=== PATIENT | male | born 1945 | race Hispanic/Latino ===

== ENCOUNTER 2018-02-23 13:37 | Inpatient (IN) | payer MEDICARE, OTHER ==
--- NOTE | 2018-02-23 14:33 | ED PDOC ---
Arrival/HPI - General Time Seen by Provider: 02/23/18 13:58 Historian: Patient, Family - History of Present Illness Narrative History of Present Illness (Text): 02/23/18 14:31 A 72 year old male, whose past medical history includes atrial fibrillation, TIA , ASCVD, ESRD, gout and neck surgery (reason unknown, no records in our system) , presents to the emergency department for evaluation. Daughter reports patient has had more difficulty caring for himself. Patient has trouble ambulating, feeding and bathing without assistance. [place] physicians there. Daughter recently contacted prior PMD Dr. Krishna Diez, who instructed them to come to the [place] emergency room for Dr. Matias to treat patient. Daughter also notes left testicular pain and swelling. Patient currently denies any physical complaints. Patient notes a 40-45 weight loss over the past year, but denies any fever, chills, nausea, vomiting, abdominal pain, chest pain, shortness of breath or any other complaints. Past Medical History - Provider Review Nursing Documentation Reviewed: Yes - Infectious Disease Hx of Infectious Diseases: None - Tetanus Immunization Tetanus Immunization: Unknown - Cardiac Hx Cardiac Disorders: Yes - Pulmonary Hx Respiratory Disorders: No - Neurological Hx Transient Ischemic Attacks (TIA): Yes (x2 10/2015 confusion worsened as per daughter) Other/Comment: confusion/memory loss for 2 or 3 yrs as per daughter worsened the last month - HEENT Hx HEENT Disorder: No - Renal Hx Renal Disorder: No - Endocrine/Metabolic Hx Endocrine Disorders: No - Hematological/Oncological Hx Cancer: Yes (prostate 10 yrs ago tx with radiation) - Integumentary Hx Dermatological Disorder: Yes (RIGHT ARM CELLULITIS 11-16-16) Other/Comment: HAS A SMALL INCISION TO RIGHT UPPER BACK ,PURPLISH HUE IN COLOR, FLUSHED SKIN. HAD BEEN INCISED AND DRAINED, sometimes drains. HAS H/O OF BACK SX 2009., recently admitted for cellulitis right arm 11/16/16presently healing, scratch auguste to rle, multiple auguste on arms from dogs scratchiing pt, pt spilled coffee on his right foot 2 wounds healing, multiple red areas of skin to left foot and bunyon, right foot +1 edema redness and redness to bunyon, buldging vein to lle - Musculoskeletal/Rheumatological Hx Falls: No - Gastrointestinal Hx Gastrointestinal Disorders: No - Psychiatric Hx Depression: Yes Hx Emotional Abuse: No Hx Physical Abuse: No Hx Substance Use: No - Surgical History Hx Cardiac Catheterization: Yes Other/Comment: back sx 2009, spinal cord compression from weight lifting - Anesthesia Hx Anesthesia Reactions: Yes Hx Malignant Hyperthermia: No - Suicidal Assessment Feels Threatened In Home Enviroment: No Family/Social History - Physician Review Nursing Documentation Reviewed: Yes Family/Social History: No Known Family HX Smoking Status: Never Smoked Hx Alcohol Use: No Hx Substance Use: No Allergies/Home Meds Allergies/Adverse Reactions: Allergies No Known Allergies Allergy (Verified 11/26/16 22:30) Home Medications: Home Meds Medication Instructions Recorded Confirmed Albuterol/Ipratropium [Duoneb 3 3 ml IH QID 02/23/18 02/23/18 MG/3 Ml-0.5 MG/3 Ml 3 Ml] Apixaban [Eliquis] 5 mg PO BID 02/23/18 02/23/18 Atorvastatin [Lipitor] 40 mg PO HS 02/23/18 02/23/18 Escitalopram [Lexapro] 10 mg PO DAILY 02/23/18 02/23/18 Gabapentin [Neurontin] 300 mg PO BID 02/23/18 02/23/18 Omeprazole 40 mg PO DAILY 02/23/18 02/23/18 diltiaZEM [Cardizem] 240 mg PO DAILY 02/23/18 02/23/18 Review of Systems - Physician Review All systems were reviewed & negative as marked: Yes - Review of Systems Constitutional: Weight Change, Other (Difficulty caring for himslef). absent: Fevers, Night Sweats Respiratory: absent: SOB Cardiovascular: absent: Chest Pain Gastrointestinal: absent: Abdominal Pain, Nausea, Vomiting Genitourinary Male: Other (left testicular pain and swelling) Physical Exam Vital Signs Reviewed: Yes Vital Signs Temp Pulse Resp BP Pulse Ox 02/23/18 18:43 85 16 91/49 L 91 L 02/23/18 14:39 98.3 F 92 H 20 90/56 L 100 Temperature: Afebrile Blood Pressure: Hypotensive Pulse: Tachycardic Respiratory Rate: Normal Appearance: Positive for: Well-Appearing, Non-Toxic, Comfortable Pain Distress: None Mental Status: Positive for: Alert and Oriented X 3 - Systems Exam Head: Present: Atraumatic, Normocephalic Pupils: Present: PERRL Extroacular Muscles: Present: EOMI Conjunctiva: Present: Normal Mouth: Present: Moist Mucous Membranes Neck: Present: Normal Range of Motion. No: JVD Respiratory/Chest: Present: Clear to Auscultation, Good Air Exchange. No: Respiratory Distress, Accessory Muscle Use Cardiovascular: Present: Normal S1, S2, Irregular Rhythm. No: Murmurs Abdomen: Present: Normal Bowel Sounds. No: Tenderness, Distention, Peritoneal Signs Genitourinary Male: Present: Testicle Tenderness (left), Erythema (to left testicle), Testicle Swelling (left) Back: Present: Normal Inspection Upper Extremity: Present: Normal Inspection. No: Cyanosis, Edema Lower Extremity: Present: Normal Inspection. No: Edema Neurological: Present: GCS=15, CN II-XII Intact, Speech Normal Skin: Present: Warm, Dry, Normal Color. No: Rashes Psychiatric: Present: Alert, Oriented x 3, Normal Insight, Normal Concentration Medical Decision Making ED Course and Treatment: 02/23/18 14:31 Impression: A 72 year old male brought in by family for evaluation Plan: -- Head CT -- Testes ultrasound -- Chest xray -- EKG -- Labs -- Blood and Urine culture -- Urinalysis -- Reassess and disposition Progress Notes: EKG shows atrial fibrillation at 102 BPM. Interpreted by me. Case discussed with Dr. Matias, who recommends septic workup, CT head and ultrasound of testicle. - Lab Interpretations Microbiology Results: Microbiology Results 02/23/18 15:30 Blood-Venous Blood Culture - Preliminary NO GROWTH AFTER 48 HOURS 02/23/18 15:20 Blood-Venous Blood Culture - Preliminary NO GROWTH AFTER 48 HOURS Lab Results: 02/23/18 15:20 02/23/18 15:20 Lab Results 02/23/18 15:20: Sodium 143, Chloride 101, Potassium 4.1, Carbon Dioxide 25, Anion Gap 21 H, BUN 30 H, Creatinine 1.7 H, Est GFR ( Amer) 48, Est GFR ( Non-Af Amer) 40, Random Glucose 110, Calcium 9.3, Total Bilirubin 0.9, AST 36, ALT 36, Alkaline Phosphatase 151 H, Lactate Dehydrogenase 408, Total Creatine Kinase 32 L, Troponin I < 0.01 D, Total Protein 7.7, Albumin 3.4, Globulin 4.3 , Albumin/Globulin Ratio 0.8 L 02/23/18 15:20: pO2 56 H, VBG pH 7.37, VBG pCO2 49.0, VBG HCO3 28.3 H, VBG Total CO2 29.8 H, VBG O2 Sat (Calc) 91.8 H, VBG Base Excess 2.2 H, VBG Potassium 5.0, Sodium 135.0, Chloride 102.0, Glucose 112 H, Lactate 1.9, FiO2 21.0, Venous Blood Potassium 5.0 02/23/18 15:20: PT 24.0 H, INR 2.07 H 02/23/18 15:20: WBC 10.1, RBC 4.00, Hgb 10.5 L, Hct 33.4 L, MCV 83.5, MCH 26.3, MCHC 31.4, RDW 16.9 H, Plt Count 352, MPV 8.8, Gran % 65.1, Lymph % (Auto) 22.8 , Moody % (Auto) 9.8 H, Eos % (Auto) 2.1, Baso % (Auto) 0.2, Gran # 6.58 H, Lymph # (Auto) 2.3, Moody # (Auto) 1.0 H, Eos # (Auto) 0.2, Baso # (Auto) 0.02 - RAD Interpretation Radiology Orders: 02/23/18 14:52 HEAD W/O CONTRAST [CT] Stat CHEST PORTABLE [RAD] Stat TESTES DUPLEX COMPLETE [US] Stat - Medication Orders Current Medication Orders: Apixaban (Eliquis) 5 mg PO BID [facility] PRN Reason: Protocol Last Admin: 02/24/18 10:29 Dose: 5 mg Atorvastatin Calcium (Lipitor) 40 mg PO HS [facility] Last Admin: 02/25/18 21:04 Dose: 40 mg Diltiazem HCl (Cardizem Cd) 240 mg PO DAILY [facility] Last Admin: 02/25/18 10:23 Dose: 240 mg Escitalopram Oxalate (Lexapro) 10 mg PO DAILY [facility] Last Admin: 02/25/18 10:23 Dose: 10 mg Famotidine (Pepcid) 40 mg PO HS [facility] Last Admin: 02/25/18 21:04 Dose: 40 mg Gabapentin (Neurontin) 300 mg PO BID [facility] PRN Reason: Protocol Last Admin: 02/25/18 17:49 Dose: 300 mg Behavioural Document 02/25/18 17:49 KEVIN (Rec: 02/25/18 17:49 [place] [facility] [id number] Maintenance Maintenance Dose Yes Heparin Sodium (Porcine) (Heparin) 5,000 units SC Q8 ANASTASIA PRN Reason: Protocol Last Admin: 02/26/18 05:13 Dose: Not Given Non-Admin Reason: Patient Refused Piperacillin Sod/Tazobactam Sod (Zosyn 2.25 Gm In 0.9% 100 Ml) 2.25 gm in 100 mls @ 200 mls/hr IVPB Q6 ANASTASIA PRN Reason: Protocol Stop: 03/03/18 00:01 Last Admin: 02/25/18 17:49 Dose: 200 mls/hr eMAR Start Stop Document 02/25/18 17:49 KEVIN (Rec: 02/25/18 17:49 [place] [facility] [id number] Intravenous Solution Start Date 02/25/18 Start Time 17:49 Sodium Chloride (Sodium Chloride 0.9%) 1,000 mls @ 100 mls/hr IV .Q10H [facility] Last Admin: 02/25/18 21:05 Dose: Oxycodone/Acetaminophen (Percocet 5/325 Mg Tab) 1 tab PO Q4H PRN PRN Reason: Pain, moderate (4-7) Stop: 02/27/18 08:10 Polyethylene Glycol/Electrolytes (Golytely) 4,000 ml PO ONCE ONE Stop: 02/26/18 14:01 Discontinued Medications Levofloxacin/Dextrose (Levaquin 750mg) 750 mg in 150 mls @ 100 mls/hr IVPB STAT STA PRN Reason: Protocol Stop: 02/23/18 18:40 Last Admin: 02/23/18 18:58 Dose: 100 mls/hr eMAR Start Stop Document 02/23/18 18:58 MS (Rec: 02/23/18 18:58 [id number]) Intravenous Solution Start Date 02/23/18 Start Time 18:58 Doxycycline Hyclate 100 mg/ (Sodium Chloride) 100 mls @ 100 mls/hr IVPB ONCE ONE PRN Reason: Protocol Stop: 02/23/18 18:13 Last Admin: 02/23/18 18:07 Dose: 100 mls/hr eMAR Start Stop Document 02/23/18 18:07 MS (Rec: 02/23/18 18:07 MS [id number]) Intravenous Solution Start Date 02/23/18 Start Time 18:07 End Date 02/23/18 End time 19:07 Total Infusion Time 60 Sodium Chloride (Sodium Chloride 0.9%) 1,000 mls @ 60 mls/hr IV .[id number] ANASTASIA Last Admin: 02/24/18 05:56 Dose: 60 mls/hr eMAR Start Stop Document 02/24/18 05:56 MJ (Rec: 02/24/18 05:56 MJ [id number]) Intravenous Solution Start Date 02/24/18 Start Time 21:00 Piperacillin Sod/Tazobactam Sod (Zosyn 3.375 In Ns 100ml) 100 mls @ 200 mls/hr IVPB Q6 ANASTASIA PRN Reason: Protocol Stop: 03/03/18 00:01 Last Admin: 02/24/18 05:49 Dose: 200 mls/hr eMAR Start Stop Document 02/24/18 05:49 MJ (Rec: 02/24/18 05:49 MJ [id number]) Intravenous Solution Start Date 02/24/18 Start Time 05:49 End Date 02/24/18 End time 06:19 Total Infusion Time 30 Sodium Chloride (Sodium Chloride 0.9%) 250 mls @ 999 mls/hr IV .Q16M STA Stop: 02/24/18 13:49 Last Admin: 02/24/18 13:43 Dose: 999 mls/hr eMAR Start Stop Document 02/24/18 13:43 KEVIN (Rec: 02/24/18 13:43 KEVIN [id number]) Intravenous Solution Start Date 02/24/18 Start Time 08:00 Iron Sucrose 200 mg/ Sodium (Chloride) 110 mls @ 110 mls/hr IVPB ONCE ONE Stop: 02/25/18 09:59 Last Admin: 02/25/18 10:24 Dose: 110 mls/hr eMAR Start Stop Document 02/25/18 10:24 KEVIN (Rec: 02/25/18 10:24 KEVIN [id number]) Intravenous Solution Start Date 02/25/18 Start Time 10:24 Morphine Sulfate (Morphine) 4 mg IVP STAT STA Stop: 02/23/18 17:11 Last Admin: 02/23/18 18:07 Dose: 4 mg MAR Pain Assessment Document 02/23/18 18:07 MS (Rec: 02/23/18 18:08 MS [id number]) Pain Reassessment Is this a pain reassessment? No Sleep Is patient sleeping during reassessment? No Presence of Pain Presence of Pain Yes Pain Scale Used Pain Scale Used Numeric Location Pain Location Body Site Generalized Description Description Constant Intensity of Pain at present 8 Pain Behavior Moaning Irritability IVP Administration Document 02/23/18 18:07 MS (Rec: 02/23/18 18:08 [id number]) Charges for Administration # of IVP Administrations 1 Re-Assess: MAR Pain Assessment Document 02/23/18 19:07 MJ (Rec: 02/24/18 08:20 MJ [id number]) Pain Reassessment Is this a pain reassessment? Yes Sleep Is patient sleeping during reassessment? Yes Ondansetron HCl (Zofran Inj) 4 mg IVP STAT STA Stop: 02/23/18 17:11 Last Admin: 02/23/18 18:07 Dose: 4 mg IVP Administration Document 02/23/18 18:07 MS (Rec: 02/23/18 18:07 MS [id number]) Charges for Administration # of IVP Administrations 1 - Scribe Statement The provider has reviewed the documentation as recorded by the Scribe Odilia Tipton Provider Scribe Attestation: All medical record entries made by the Scribe were at my direction and personally dictated by me. I have reviewed the chart and agree that the record accurately reflects my personal performance of the history, physical exam, medical decision making, and the department course for this patient. I have also personally directed, reviewed, and agree with the discharge instructions and disposition. Disposition/Present on Arrival - Present on Arrival Any Indicators Present on Arrival: No History of DVT/PE: No History of Uncontrolled Diabetes: No Urinary Catheter: No History of Decub. Ulcer: No History Surgical Site Infection Following: None - Disposition Have Diagnosis and Disposition been Completed?: Yes Diagnosis: Epididymitis, Cellulitis of scrotum, Generalized weakness, Debilitated Disposition: HOSPITALIZED Disposition Time: 16:00 Patient Plan: Admission Condition: FAIR
[2018-02-23 15:24] LABS: BASO # 0.02 K/mm3 (0.0-2.0); BASO % 0.2 % (0.0-3.0); EOS # 0.2 (0.0-0.7); EOS % 2.1 % (1.5-5.0); GRAN # 6.58 (1.4-6.5); GRAN % 65.1 % (50.0-68.0); HEMOGLOBIN 10.5 g/dL (14.0-18.0); LYMPH # 2.3 (1.2-3.4); LYMPH % 22.8 % (22.0-35.0); MEAN CELL VOLUME 83.5 fl (80.0-105.0); MEAN CORPUSCULAR HEMOGLOBIN 26.3 pg (25.0-35.0); MEAN CORPUSCULAR HGB CONC 31.4 g/dl (31.0-37.0); MEAN PLATELET VOLUME 8.8 fl (7.0-11.0); MONO % 9.8 % (1.0-6.0); RED CELL DISTRIBUTION WIDTH 16.9 % (11.5-14.5); WHITE BLOOD COUNT 10.1 10^3/ul (4.5-11.0)
[2018-02-23 15:28] LABS: VENOUS BLOOD GAS BASE EXCESS 2.2 mmol/L (0.0-2.0); VENOUS BLOOD GAS PO2 56 mm/Hg (30-55); VENOUS BLOOD PH 7.37 (7.32-7.43)
[2018-02-23 15:36] LABS: INR 2.07 (0.93-1.08)
[2018-02-23 15:49] LABS: ALB/GLOB RATIO 0.8 (1.1-1.8); ALBUMIN 3.4 g/dL (3.0-4.8); ALT/SGPT 36 U/L (7-56); AST/SGOT 36 U/L (17-59); BLOOD UREA NITROGEN 30 mg/dL (7-21); CALCIUM 9.3 mg/dL (8.4-10.5); GFR AFRICAN-AMERICAN 48; GFR NON-AFRICAN AMERICAN 40
[2018-02-23 16:00] LABS: TROPONIN I < 0.01 ng/mL
--- NOTE | 2018-02-23 16:32 | US ---
HISTORY: Orchitis vs Epididimitis TECHNIQUE: Realtime sonography through the scrotum with color and doppler flow. COMPARISON: None Available. FINDINGS: RIGHT TESTICLE: Measures 4.1 7 x 1.58 x 2.78 cm. Normal echotexture and flow. RIGHT EPIDIDYMIS: Epididymal head measures 1.13 x 0.63 x 1.09 cm. Grossly unremarkable appearance with normal flow. LEFT TESTICLE: Measures 4.1 8 x 1.95 x 2.8 a cm. Normal echotexture and flow. LEFT EPIDIDYMIS: The left epididymis is grossly enlarged and heterogeneous consistent with epididymitis. There is also markedly increased blood flow to the epididymis. HYDROCELE: Bilateral VARICOCELE: None. OTHER FINDINGS: None. IMPRESSION: Enlarged and heterogeneous left epididymis with increased blood flow. Findings consistent with epididymitis. Normal blood flow to the testicles
[2018-02-23] MEDS ORDERED: Morphine 4 mg/ml ISec IVP STA (17:10)
[2018-02-23] MEDS ORDERED: levoFLOXacin 750 mg in D5W 750 MG/150 ML BAG IVPB STA (17:11)
--- NOTE | 2018-02-23 18:53 | CT ---
PROCEDURE: CT HEAD WITHOUT CONTRAST. HISTORY: Generalized Weakness COMPARISON: None available. TECHNIQUE: Axial computed tomography images were obtained through the head/brain without intravenous contrast. Radiation dose: Total exam DLP = 1240.23 mGy-cm. This CT exam was performed using one or more of the following dose reduction techniques: Automated exposure control, adjustment of the mA and/or kV according to patient size, and/or use of iterative reconstruction technique. FINDINGS: HEMORRHAGE: No acute parenchymal, subarachnoid or extra-axial hemorrhage. BRAIN: Moderate to significant diffuse/confluent chronic periventricular white matter ischemic changes are again seen extending peripherally into the deep and subcortical white matter both cerebral hemispheres. . Partially cystic encephalomalacia left posterior inferior temporal lobe again noted. Clinical correlation recommended. . 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 Multiple chronic appearing bilateral basal nuclei lacunar type infarcts also present. Moderate to significant generalized volume loss. VENTRICLES: No obstructive hydrocephalus. CALVARIUM: There are no acute calvarial fractures. PARANASAL SINUSES: Frontal sinuses remain underpneumatized/ hypoplastic. Remaining visualized paranasal sinuses relatively well-developed. Minimal mucosal thickening both maxillary antra. There is also minor mucosal thickening seen in the sphenoid sinus left greater than right MASTOID AIR CELLS: Unremarkable as visualized. No inflammatory changes. OTHER FINDINGS: None. IMPRESSION: Moderate to significant diffuse/confluent chronic periventricular white matter ischemic changes are again seen extending peripherally into the deep and subcortical white matter both cerebral hemispheres. . Partially cystic encephalomalacia left posterior inferior temporal lobe again noted. Clinical correlation recommended. . 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 Multiple chronic appearing bilateral basal nuclei lacunar type infarcts also present. Note that the possibility of a small hyperacute infarct cannot be excluded. Moderate to significant generalized volume loss
[2018-02-23] MEDS ORDERED: Sodium Chloride 0.9% 1,000 ML IV SCH (20:30)
--- NOTE | 2018-02-23 22:29 | CARD ---
APPROVED REPORT EKG Measurement Heart [id number] <Conclusion> Atrial fibrillation with rapid ventricular response Abnormal ECG
[2018-02-23] MEDS: Piperacillin/Tazobact 3.375 gm 100 ML IVPB SCH (23:35)
[2018-02-24 01:15] VITALS: BMI 27.3
[2018-02-24] MEDS: Piperacillin/Tazobact 3.375 gm 100 ML IVPB SCH (05:49)
--- NOTE | 2018-02-24 07:23 | CP.PCM.HP ---
<Crystal Medina - Last Filed: 02/24/18 13:22> History of Present Illness - History of Present Illness History of Present Illness: H&P for Anne Valentino PGY2 This is a 72yo male with past medical history of gout, CKD stage IIIa, A.fib ( on Eliquis), CVA, prostate ca s/p radiation who was brought in by daughter for difficulty ambulating for a few months as well as testicular pain x 3 days. Patient is A&O to person and sometimes place, but not time. Daughter was not at bedside upon interview. History was obtained via patient who has some dementia and records. Patient has been having problems with his ADLs for the past couple of months. He is usually able to walk w/ walker, bathe and feed himself, but is now unable to do so. Patient reports having weakness in his L leg. He also complains of testicular pain and swelling for a few days. He denies having any discharge, sexual contacts, dysuria, hematuria, fever/chills, chest pain, shortness of breath, dark color or blood in stool, nausea/vomiting or diarrhea. Patient now lives in [place] with daughter for one year. According to the ED record, patient has lost ~40lbs in the past year. Past medical history: gout, CKD stage IIIa, A.fib (on Eliquis), CVA, prostate ca s/p radiation Past surgical history: back surgery Home meds: As per MAR Allergies: NKDA Social history: Denies EtOH, drug or tobacco use. Lives with daughter Present on Admission - Present on Admission Any Indicators Present on Admission: No Review of Systems - Review of Systems All systems: reviewed and no additional remarkable complaints except Review of Systems: 12 point ROS reviewed as per HPI and are otherwise negative. Past Patient History - Infectious Disease Hx of Infectious Diseases: None - Tetanus Immunizations Tetanus Immunization: Unknown - Past Social History Smoking Status: Never Smoked Alcohol: None Drugs: Denies Home Situation {Lives}: With Family - CARDIAC Hx Cardiac Disorders: Yes - PULMONARY Hx Respiratory Disorders: No - NEUROLOGICAL Hx Transient Ischemic Attacks (TIA): Yes (x2 10/2015 confusion worsened as per daughter) Other/Comment: confusion/memory loss for 2 or 3 yrs as per daughter worsened the last month - HEENT Hx HEENT Problems: No - RENAL Hx Chronic Kidney Disease: No - ENDOCRINE/METABOLIC Hx Endocrine Disorders: No - HEMATOLOGICAL/ONCOLOGICAL Hx Cancer: Yes (prostate 10 yrs ago tx with radiation) - INTEGUMENTARY Hx Dermatological Problems: Yes (RIGHT ARM CELLULITIS 11-16-16) Other/Comment: HAS A SMALL INCISION TO RIGHT UPPER BACK ,PURPLISH HUE IN COLOR, FLUSHED SKIN. HAD BEEN INCISED AND DRAINED, sometimes drains. HAS H/O OF BACK SX 2008., recently admitted for cellulitis right arm 11/16/16presently healing, scratch auguste to rle, multiple auguste on arms from dogs scratchiing pt, pt spilled coffee on his right foot 2 wounds healing, multiple red areas of skin to left foot and bunyon, right foot +1 edema redness and redness to bunyon, buldging vein to lle - MUSCULOSKELETAL/RHEUMATOLOGICAL Hx Falls: No - GASTROINTESTINAL Hx Gastrointestinal Disorders: No - GENITOURINARY/GYNECOLOGICAL Hx Genitourinary Disorders: No - PSYCHIATRIC Hx Depression: Yes Hx Emotional Abuse: No Hx Physical Abuse: No Hx Substance Use: No - SURGICAL HISTORY Hx Cardiac Catheterization: Yes Other/Comment: back sx 2008, spinal cord compression from weight lifting - ANESTHESIA Hx Anesthesia Reactions: Yes Hx Malignant Hyperthermia: No Meds Allergies/Adverse Reactions: Allergies Allergy/AdvReac Type Severity Reaction Status Date / Time No Known Allergies Allergy Verified 11/26/16 22:30 Physical Exam - Constitutional Appears: No Acute Distress - Head Exam Head Exam: ATRAUMATIC, NORMAL INSPECTION, NORMOCEPHALIC - Eye Exam Eye Exam: Normal appearance, PERRL Pupil Exam: NORMAL ACCOMODATION, PERRL - ENT Exam ENT Exam: Mucous Membranes Dry Additional comments: L sided facial droop - Respiratory Exam Respiratory Exam: Clear to Auscultation Bilateral, NORMAL BREATHING PATTERN. absent: Rales, Rhonchi, Wheezes - Cardiovascular Exam Cardiovascular Exam: Irregular Rhythm, +S1, +S2. absent: Gallop, Rubs, Systolic Murmur - GI/Abdominal Exam GI & Abdominal Exam: Normal Bowel Sounds, Soft. absent: Rebound, Rigid, Tenderness - Exam Exam: Scrotal Swelling (R), Testicular Tenderness (R) - Extremities Exam Extremities exam: Positive for: normal inspection. Negative for: calf tenderness, pedal edema - Neurological Exam Neurological exam: Alert - Expanded Neurological Exam Expanded Patient oriented to: person, place Speech: Fluid Speech Cranial nerves: EOM's Intact: Normal, Facial Palsey w/Forehead Movement: Abnormal Left, Facial Palsey w/o Forehead Movement: Abnormal Left, Facial Sensation: Normal Neuro motor strength exam: Left Upper Extremity: 4, Right Upper Extremity: 5, Left Lower Extremity: 5, Right Lower Extremity: 2/1 Coma Scale Eye Opening: SPONTANEOUS Coma Scale Motor Response: OBEYS COMMANDS Coma Scale Verbal: Confused Coma Scale Total: 14 - Psychiatric Exam Psychiatric exam: Normal Affect, Normal Mood - Skin Skin Exam: Dry, Warm Results - Vital Signs Recent Vital Signs: Last Vital Signs Temp 98.5 F 02/23/18 22:49 Pulse 77 02/23/18 22:49 Resp 20 02/23/18 22:49 BP 91/58 L 02/23/18 22:49 Pulse Ox 93 L 02/23/18 22:49 - Labs Result Diagrams: 02/23/18 15:20 02/23/18 15:20 Assessment & Plan - Assessment and Plan (Free Text) Assessment: This is a 72yo male with past medical history of gout, CKD stage IIIa, A.fib ( on Eliquis), CVA, prostate ca s/p radiation who is admitted for L leg weakness, R epidydimitis and anemia with weight loss. Plan: 1. L Leg weakness - Hx of CVA in L parietal and R watershed zone - On exam- pt has L sided facial droop, L leg very weak - Head CT showed: Moderate to significant diffuse chronic periventricular white matter ischemic changes extending peripherally into the deep and subcortical white matter both cerebral hemispheres. Partially cystic encephalomalacia left posterior inferior temporal lobe again noted. 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 Multiple chronic appearing bilateral basal nuclei lacunar type infarcts. Moderate to significant generalized volume loss - Neuro consulted - Pt on Lipitor - aspiration precaution - fall precaution - PT/OT 2. R Epidydimitis - Testicular US showed R epidydimitis - Afebrile, no leukocytosis - Zosyn - ID consulted- recs appreciated - U/A pending- pt incontinent- will need to straight cath - urine culture and blood culture pending 3. Anemia - With weight loss and hx of prostate cancer - Hgb 10.5, last Hgb 15 in 11/2016 - Heme consulted-recs appreciated - PSA 1.0 - CEA and Ca 19-9 normal - Iron studies pending - Spep and immunofixation pending - GI consulted- recommend to obtain CT abdomen/pelvis, hold Eliquis and scope on Friday 4. Hypotension - s/p IV fluid bolus - Will continue IV hydration - Maintain MAP>65 5. CKD stage IIIa - Avoid nephrotoxic agents - Continue IV hydration - Will continue to monitor electrolytes and kidney function 6. Hx of A.fib - EKG showed A.fib @102 - Continue Cardizem - Eliquis on hold for anemia and EGD/Colonoscopy 7. Hx of Depression - Continue Lexapro 8. Chronic back pain - Gabapentin - pain control GI ppx: Pepcid DVT ppx: SCDs. Eliquis on hold for anemia and for procedure. Dispo: Physical therapy recommended [facility]. Case seen, discussed and reviewed with Dr. Matias. Anne Medina PGY2 - Date & Time Date: 02/24/18 Time: 08:00 <Alvin Matias S - Last Filed: 02/24/18 20:16> Results - Vital Signs Recent Vital Signs: Last Vital Signs Temp 99.3 F 02/24/18 14:00 Pulse 86 02/24/18 14:00 Resp 20 02/24/18 14:00 BP 104/68 02/24/18 14:00 Pulse Ox 93 L 02/24/18 14:00 - Labs Result Diagrams: 02/23/18 15:20 02/23/18 15:20 Labs: Laboratory Results - last 24 hr 02/24/18 02/24/18 02/24/18 06:45 06:45 06:45 Iron 28 L TIBC 160 L % Saturation 17 L Ferritin 1670.0 Lactate Dehydrogenase 323 L Carcinoembryonic Ag 2.6 CA 19-9 Antigen 14.8 Prostate Specific Ag 1.0 Vitamin B12 679 Folate 9.6 Urine Color Urine Appearance Urine pH Ur Specific [place] Urine Protein Urine Glucose (UA) Urine Ketones Urine Blood Urine Nitrate Urine Bilirubin Urine Urobilinogen Ur Leukocyte Esterase Urine RBC Urine WBC Ur Epithelial Cells Amorphous Sediment Urine Bacteria Coarse Granular Casts Urine Other 02/24/18 18:26 Iron TIBC % Saturation Ferritin Lactate Dehydrogenase Carcinoembryonic Ag CA 19-9 Antigen Prostate Specific Ag Vitamin B12 Folate Urine Color Yellow Urine Appearance Clear Urine pH 5.5 Ur Specific [place] 1.020 Urine Protein 30 H Urine Glucose (UA) Negative Urine Ketones Negative Urine Blood Small H Urine Nitrate Positive H Urine Bilirubin Negative Urine Urobilinogen 1.0 H Ur Leukocyte Esterase Moderate H Urine RBC 10 - 15 Urine WBC 25 - 30 Ur Epithelial Cells 0 - 2 Amorphous Sediment Small Urine Bacteria Many Coarse Granular Casts Trace H Urine Other Uyeast Assessment & Plan - Assessment and Plan (Free Text) Plan: Pt seen and examined. Agree with the note of the medical doctor md/medical director. Meds and labs reviewed. I am concerned about a stroke that may have caused his L leg weakness and it correlates with the CT findings. He did not have this weakness previously when he was admitted last year. I will get Urology to see the pt. ID will be consulted as well.
[2018-02-24 07:37] LABS: IRON 28 ug/dL (45-180)
[2018-02-24 07:46] LABS: % IRON SATURATION 17 % (20-55); TOTAL IRON BINDING CAPACITY 160 ug/dL (261-462)
[2018-02-24] MEDS ORDERED: Oxycodone/Acetaminophen 5/325 mg Tab PO PRN (08:09)
--- NOTE | 2018-02-24 08:30 | CON ---
DATE: 02/23/2018 REASON FOR CONSULTATION: Failure to thrive, weight loss. CONSULT REQUESTED BY: Dr. Matias. HISTORY OF PRESENT ILLNESS: Mr. Will is 72-year-old male brought to the hospital by the daughter because of progressive deterioration in his health. He has profound weight loss. He used to weigh 220 pounds, currently, it is 180 pounds. He is not eating much. According to daughter, he just want to eat fruits. The patient denies any difficulty swallowing. He had TIA and stroke in the past. Atrial fibrillation. He also reporting history of prostate cancer diagnosed many years ago. Daughter is unaware of the kind of treatment he received for prostate cancer. She states that her mother knew about the treatment he received. He also has complaints of generalized aches and pains usually in arms and legs. He was taking Percocet for that. She stopped giving him Percocet. The patient complains that his pain is worse after stopping Percocet now. He also noticed bilateral scrotal swelling. Ultrasound of the scrotum done in the ER showed left-sided epididymitis. MRI of the brain done in the ER showed chronic old changes, no acute infarction. He has history of spine surgery in 2008. He also complains of weakness in lower extremity. His functional status is poor. He is unable to walk or stand. He is also incontinent with both bladder and bowel functions. PAST MEDICAL HISTORY: Prostate cancer, history of TIA, atrial fibrillation, back surgeries. Prostate cancer probably treated with radiation. PAST SURGICAL HISTORY: Spine surgery for cord compression in 2008. FAMILY HISTORY: Noncontributory. SOCIAL HISTORY: Never smoked. No history of alcohol abuse. ALLERGIES: NO KNOWN DRUG ALLERGIES. HOME MEDICATIONS: Aspirin 81 mg daily, Indocin 50 mg daily. REVIEW OF SYSTEMS: As per HPI. Rest of 12-point review of systems reviewed and negative. PHYSICAL EXAMINATION GENERAL: Comfortable in bed, in no acute distress. VITAL SIGNS: Temperature 98.3 heart rate 92 per minute, respiratory rate 20 per minute, blood pressure 100/60. HEENT: PERRLA positive. Face is asymmetrical. NECK: No lymphadenopathy. CHEST: Air entry present equal and bilateral. No added sounds. CARDIOVASCULAR: S1 and S2 normal. No murmur. No gallop. ABDOMEN: Soft, nontender. No hepatosplenomegaly. EXTREMITIES: No edema. GENITOURINARY: Bilateral testicular exam showed bilateral hydrocele. Left testicular nodular appearance. Nontender. Bilateral testicular skin erythema present. SPINE: Nontender. SKIN: No petechiae, no rash. CENTRAL NERVOUS SYSTEM: Right-sided facial droop present. Moving all the extremities. Alert, oriented x3. LABORATORY DATA: White count 10,000, hemoglobin 10.5, hematocrit 33.4, platelet 352. Sodium 143, potassium 4.1, creatinine 1.7. LFTs within normal limits. Coags, INR 2.07, PT 24. Everything else per HPI. ASSESSMENT AND PLAN: 1. Failure to thrive. 2. Profound weight loss. 3. Generalized aches and pains. 4. History of prostate cancer, treated with radiation 10 years ago. 5. History of transient ischemic attack/strokes. 6. Progressive deterioration in ambulation. PLAN: He has profound weight loss from 220 pounds to 180. He had some workup at 2 different hospitals at [facility] . Records showed MRI of the brain, MRI of the spine, bilateral carotid Dopplers. MRI of the spine showed multilevel degenerative changes and disc bulges. History of prostate cancer, PSA ordered . Generalized aches and pains, bone scan to rule out bony metastatic disease if PSA is elevated. Neurology consultation requested for prior stroke and deteriorating weakness. He has been on Eliquis full doses for atrial fibrillation. INR is 2. He also has mild anemia. We will do the workup for anemia. Chronic kidney disease stage III, creatinine elevated to 1.7. Discussed at length with the daughter who is at bedside. Thank you, Dr. Matias for allowing us to participate in Mr. Will's care. Sharifa Sorenson MD [facility]
--- NOTE | 2018-02-24 08:50 | RAD ---
HISTORY: generalized weakenss COMPARISON: 11/23/2016 FINDINGS: LUNGS: No active pulmonary disease. PLEURA: No significant pleural effusion identified, no pneumothorax apparent. CARDIOVASCULAR: Normal. OSSEOUS STRUCTURES: No significant abnormalities. VISUALIZED UPPER ABDOMEN: Normal. OTHER FINDINGS: None. IMPRESSION: No active disease.
[2018-02-24] MEDS ORDERED: DILTIAZEM 240 MG PO SCH (10:00)
[2018-02-24] MEDS: diltiaZEM 240 mg/24 Hours CD Cap PO SCH (10:33)
--- NOTE | 2018-02-24 10:50 | CP.PCM.CON ---
History of Present Illness - History of Present Illness History of Present Illness: PGY-[address] Koroma's service 72 yo male with past medical history of gout, CKD stage IIIa, A.fib (on Eliquis) , CVA, prostate ca s/p radiation who was brought in by daughter for difficulty ambulating, weight loss, and Epidydimitis found t o have anemia, with a drop in hgb. History was obtained via patient who has some dementia and records. Patient states for the past few months he has not been eating well, he reports decrease in appetite. Patient states that about 7 months ago he had stroke with focal deficits, and has difficulty with his ADLs and ambulating. He is usually able to walk w/ walker, bathe and feed himself, but is now unable to do so. Patient reports having weakness in his L leg. He denies having any abd pain, dysuria, hematuria, fever/chills, chest pain, shortness of breath, dark color or blood in stool, nausea/vomiting or diarrhea. Patient now lives in [place] with daughter for one year. According to the record, patient has lost about 40lbs in the past year. Past medical history: gout, CKD stage IIIa, A.fib (on Eliquis), CVA, prostate ca s/p radiation Past surgical history: back surgery Allergies: NKDA Social history: Denies alcohol, drug or tobacco use. Lives with daughter family history: denies Review of Systems - Review of Systems All systems: reviewed and no additional remarkable complaints except Past Patient History - Infectious Disease Hx of Infectious Diseases: None - Tetanus Immunizations Tetanus Immunization: Unknown - Past Social History Smoking Status: Never Smoked - CARDIAC Hx Cardiac Disorders: Yes - PULMONARY Hx Respiratory Disorders: No - NEUROLOGICAL Hx Transient Ischemic Attacks (TIA): Yes (x2 10/2015 confusion worsened as per daughter) Other/Comment: confusion/memory loss for 2 or 3 yrs as per daughter worsened the last month - HEENT Hx HEENT Problems: No - RENAL Hx Chronic Kidney Disease: No - ENDOCRINE/METABOLIC Hx Endocrine Disorders: No - HEMATOLOGICAL/ONCOLOGICAL Hx Cancer: Yes (prostate 10 yrs ago tx with radiation) - INTEGUMENTARY Hx Dermatological Problems: Yes (RIGHT ARM CELLULITIS 2-4-17) Other/Comment: HAS A SMALL INCISION TO RIGHT UPPER BACK ,PURPLISH HUE IN COLOR, FLUSHED SKIN. HAD BEEN INCISED AND DRAINED, sometimes drains. HAS H/O OF BACK SX 2008., recently admitted for cellulitis right arm 11/16/16presently healing, scratch auguste to rle, multiple auguste on arms from dogs scratchiing pt, pt spilled coffee on his right foot 2 wounds healing, multiple red areas of skin to left foot and bunyon, right foot +1 edema redness and redness to bunyon, buldging vein to lle - MUSCULOSKELETAL/RHEUMATOLOGICAL Hx Falls: No - GASTROINTESTINAL Hx Gastrointestinal Disorders: No - GENITOURINARY/GYNECOLOGICAL Hx Genitourinary Disorders: No - PSYCHIATRIC Hx Depression: Yes Hx Emotional Abuse: No Hx Physical Abuse: No Hx Substance Use: No - SURGICAL HISTORY Hx Cardiac Catheterization: Yes Other/Comment: back sx 2008, spinal cord compression from weight lifting - ANESTHESIA Hx Anesthesia Reactions: Yes Hx Malignant Hyperthermia: No Meds Allergies/Adverse Reactions: Allergies Allergy/AdvReac Type Severity Reaction Status Date / Time No Known Allergies Allergy Verified 11/26/16 22:30 - Medications Medications: Current Medications Apixaban (Eliquis) 5 mg PO BID [facility] PRN Reason: Protocol Last Admin: 02/24/18 10:29 Dose: 5 mg Atorvastatin Calcium (Lipitor) 40 mg PO HS [facility] Last Admin: 02/23/18 23:36 Dose: 40 mg Diltiazem HCl (Cardizem Cd) 240 mg PO DAILY [facility] Last Admin: 02/24/18 10:33 Dose: Not Given Escitalopram Oxalate (Lexapro) 10 mg PO DAILY [facility] Last Admin: 02/24/18 10:29 Dose: 10 mg Famotidine (Pepcid) 40 mg PO HS [facility] Gabapentin (Neurontin) 300 mg PO BID [facility] PRN Reason: Protocol Last Admin: 02/24/18 10:29 Dose: 300 mg Sodium Chloride (Sodium Chloride 0.9%) 1,000 mls @ 60 mls/hr IV .[id number] [facility] Last Admin: 02/24/18 05:56 Dose: 60 mls/hr Piperacillin Sod/Tazobactam Sod (Zosyn 2.25 Gm In 0.9% 100 Ml) 2.25 gm in 100 mls @ 200 mls/hr IVPB Q6 [facility] PRN Reason: Protocol Stop: 03/03/18 00:01 Oxycodone/Acetaminophen (Percocet 5/325 Mg Tab) 1 tab PO Q4H PRN PRN Reason: Pain, moderate (4-7) Stop: 02/27/18 08:10 Physical Exam - Constitutional Appears: No Acute Distress - Head Exam Head Exam: ATRAUMATIC, NORMOCEPHALIC - Eye Exam Eye Exam: EOMI, Normal appearance - ENT Exam ENT Exam: Mucous Membranes Moist Additional comments: facial droop 2/2 to previous stroke - Respiratory Exam Respiratory Exam: Clear to Auscultation Bilateral, NORMAL BREATHING PATTERN. absent: Decreased Breath Sounds, Rales, Rhonchi, Wheezes, Respiratory Distress - Cardiovascular Exam Cardiovascular Exam: REGULAR RHYTHM, +S1, +S2. absent: Bradycardia, Tachycardia , Systolic Murmur - GI/Abdominal Exam GI & Abdominal Exam: Normal Bowel Sounds. absent: Diminished Bowel Sounds, Distended, Firm, Tenderness - Extremities Exam Extremities exam: Positive for: normal inspection. Negative for: pedal edema, tenderness - Neurological Exam Neurological exam: Alert, Oriented x3 Additional comments: weakness left lower extremity s/p stroke - Skin Skin Exam: Dry, Intact, Normal Color, Warm Results - Vital Signs Recent Vital Signs: Last Vital Signs Temp 98 F 02/24/18 06:00 Pulse 95 H 02/24/18 08:35 Resp 18 02/24/18 06:00 BP 95/60 L 02/24/18 08:35 Pulse Ox 97 02/24/18 06:00 - Labs Result Diagrams: 02/25/18 06:20 02/25/18 06:20 Labs: Laboratory Results - last 24 hr 02/24/18 02/24/18 02/24/18 06:45 06:45 06:45 Iron 28 L TIBC 160 L % Saturation 17 L Lactate Dehydrogenase 323 L Carcinoembryonic Ag 2.6 Prostate Specific Ag 1.0 Assessment & Plan - Assessment and Plan (Free Text) Assessment: 72 yo male with past medical history of gout, CKD stage IIIa, A.fib (on Eliquis) , CVA, prostate ca s/p radiation who was brought in by daughter for difficulty ambulating, weight loss, and Epidydimitis found to have anemia. anemia h.o stroke Epidydimitis CKD stage IIIa Hx of A.fib Hx of Depression HX of prostate ca Plan: - CT abd/pelvis with PO contrast did not show any acute abnormalities or mass - Heme following - Iron studies showed anemia of chronic disease - IV Iron - Spep and immunofixation pending - hold Eliquis for 2 days prior to scope - will schedule endoscope for Friday case reviewed and discussed with Dr. Koroma
--- NOTE | 2018-02-24 12:22 | CP.PCM.CON ---
History of Present Illness - History of Present Illness History of Present Illness: 72 year old male with PMH of gouty arthritis, history of right hand cellulitis, chronic renal failure, atrial fibrillation, gout, history of TIA, apparent history of Prostate cancer was brought in to [facility] because of left testicular pain and swelling for several days now. The patient has been staying in his home with difficulty ambulation and is partially bed bound. He is not apparently sexually active. He denies dysuria or hematuria, denies fever or chills, no abdominal pain or suprapubic pain, no nausea or vomiting, no headache or dizziness, no cough or rhinorrhea, no sore throat, no diarrhea. Testes ultrasound reveals left sided epidydimitis. Infectious diseases consult is requested to further evaluate and manage. Review of Systems - Review of Systems All systems: reviewed and no additional remarkable complaints except (as per HPI ) Past Patient History - Infectious Disease Hx of Infectious Diseases: None - Tetanus Immunizations Tetanus Immunization: Unknown - Past Social History Smoking Status: Never Smoked - CARDIAC Hx Cardiac Disorders: Yes - PULMONARY Hx Respiratory Disorders: No - NEUROLOGICAL Hx Transient Ischemic Attacks (TIA): Yes (x2 10/2015 confusion worsened as per daughter) Other/Comment: confusion/memory loss for 2 or 3 yrs as per daughter worsened the last month - HEENT Hx HEENT Problems: No - RENAL Hx Chronic Kidney Disease: No - ENDOCRINE/METABOLIC Hx Endocrine Disorders: No - HEMATOLOGICAL/ONCOLOGICAL Hx Cancer: Yes (prostate 10 yrs ago tx with radiation) - INTEGUMENTARY Hx Dermatological Problems: Yes (RIGHT ARM CELLULITIS 11-16-16) Other/Comment: HAS A SMALL INCISION TO RIGHT UPPER BACK ,PURPLISH HUE IN COLOR, FLUSHED SKIN. HAD BEEN INCISED AND DRAINED, sometimes drains. HAS H/O OF BACK SX 2008., recently admitted for cellulitis right arm 11/16/16presently healing, scratch auguste to rle, multiple auguste on arms from dogs scratchiing pt, pt spilled coffee on his right foot 2 wounds healing, multiple red areas of skin to left foot and bunyon, right foot +1 edema redness and redness to bunyon, buldging vein to lle - MUSCULOSKELETAL/RHEUMATOLOGICAL Hx Falls: No - GASTROINTESTINAL Hx Gastrointestinal Disorders: No - PSYCHIATRIC Hx Depression: Yes Hx Emotional Abuse: No Hx Physical Abuse: No Hx Substance Use: No - SURGICAL HISTORY Hx Cardiac Catheterization: Yes Other/Comment: back sx 2009, spinal cord compression from weight lifting - ANESTHESIA Hx Anesthesia Reactions: Yes Hx Malignant Hyperthermia: No Meds Allergies/Adverse Reactions: Allergies Allergy/AdvReac Type Severity Reaction Status Date / Time No Known Allergies Allergy Verified 11/26/16 22:30 - Medications Medications: Current Medications Apixaban (Eliquis) 5 mg PO BID [facility] PRN Reason: Protocol Last Admin: 02/23/18 18:53 Dose: 5 mg Atorvastatin Calcium (Lipitor) 40 mg PO HS [facility] Diltiazem HCl (Cardizem Cd) 240 mg PO DAILY [facility] Escitalopram Oxalate (Lexapro) 10 mg PO DAILY [facility] Gabapentin (Neurontin) 300 mg PO BID [facility] PRN Reason: Protocol Last Admin: 02/23/18 18:52 Dose: 300 mg Sodium Chloride (Sodium Chloride 0.9%) 1,000 mls @ 60 mls/hr IV .[id number] [facility] Physical Exam - Constitutional Appears: Non-toxic, Chronically Ill - Head Exam Head Exam: NORMAL INSPECTION - ENT Exam ENT Exam: Mucous Membranes Moist - Neck Exam Neck exam: Negative for: Lymphadenopathy, Meningismus - Respiratory Exam Respiratory Exam: Decreased Breath Sounds - Cardiovascular Exam Cardiovascular Exam: +S1, +S2 - GI/Abdominal Exam GI & Abdominal Exam: Soft. absent: Tenderness - Exam Exam: Scrotal Swelling (left sided) Results - Vital Signs Recent Vital Signs: Last Vital Signs Temp 97.6 F 02/23/18 19:00 Pulse 85 02/23/18 19:00 Resp 16 02/23/18 19:00 BP 91/49 L 02/23/18 19:00 Pulse Ox 91 L 02/23/18 19:00 - Labs Result Diagrams: 02/23/18 15:20 02/23/18 15:20 Assessment & Plan - Assessment and Plan (Free Text) Plan: Assessment left sided epididyimitis history of gouty arthritis history of right hand cellulitis chronic renal failure atrial fibrillation gout history of TIA history of prostate cancer Plan started patient on Zosyn pending blood and urine cx; recommend Urology evaluation patient apparently not sexually active, has been partially bed-bound for almost 2-3 months now, does not get out of the house will monitor clinically
[2018-02-24 13:30] LABS: FOLATE 9.6 ng/mL
[2018-02-24] MEDS ORDERED: Sodium Chloride 0.9% 250 ML IV STA (13:34)
[2018-02-24] MEDS: Piperacillin/Tazobact 2.25gm 2.25 GM/100 ML BAG IVPB SCH ×2 (13:37→19:36)
[2018-02-24] MEDS: Sodium Chloride 0.9% 1,000 ML IV SCH ×2 (13:44→19:47)
--- NOTE | 2018-02-24 15:21 | CT ---
PROCEDURE: CT Abdomen and Pelvis without intravenous contrast HISTORY: low hgb, wt loss COMPARISON: None. TECHNIQUE: Without contrast.. Contrast dose: None Radiation dose: Total exam DLP = 1017 mGy-cm. This CT exam was performed using one or more of the following dose reduction techniques: Automated exposure control, adjustment of the mA and/or kV according to patient size, and/or use of iterative reconstruction technique. FINDINGS: LOWER THORAX: Unremarkable. LIVER: Unremarkable. No gross lesion or ductal dilatation. GALLBLADDER AND BILE DUCTS: Unremarkable. PANCREAS: Unremarkable. No gross lesion or ductal dilatation. SPLEEN: Unremarkable. ADRENALS: Unremarkable. No mass. KIDNEYS AND URETERS: Unremarkable. No hydronephrosis. No solid mass. Bilateral perinephric stranding. Nonobstructing stones measuring less than 5 mm VASCULATURE: Unremarkable. No aortic aneurysm. BOWEL: Unremarkable. No obstruction. No gross mural thickening. APPENDIX: Unremarkable. Normal appendix. PERITONEUM: Unremarkable. No free fluid. No free air. LYMPH NODES: Unremarkable. No enlarged lymph nodes. BLADDER: Mild mural thickening REPRODUCTIVE: Unremarkable. BONES: No acute fracture. OTHER FINDINGS: None. IMPRESSION: Unremarkable non contrast enhanced CT of the abdomen and pelvis.
[2018-02-24 18:30] LABS: PH,URINE 5.5 (4.7-8.0); URINE BILIRUBIN NEGATIVE (NEGATIVE); URINE BLOOD SMALL (NEGATIVE); URINE GLUCOSE (UA) NEGATIVE (NEGATIVE); URINE LEUKOCYTE ESTERASE MODERATE Leu/uL (NEGATIVE); URINE PROTEIN 30 mg/dL (<30 mg/dL)
[2018-02-24 18:34] LABS: URINE APPEARANCE CLEAR (CLEAR); URINE COLOR YELLOW (YELLOW)
[2018-02-24 18:36] LABS: URINE BACTERIA MANY (NEG); URINE EPITHELIAL CELLS 0 - 2 /hpf (0-5); URINE WBC 25 - 30 /hpf (0-6)
[2018-02-24 18:38] LABS: URINE AMORPHOUS SEDIMENT SMALL; URINE COARSE GRANULAR CAST TRACE /hpf (0-2)
--- NOTE | 2018-02-25 00:11 | CP.PCM.PN ---
Subjective - Date & Time of Evaluation Date of Evaluation: 02/24/18 Time of Evaluation: 18:00 - Subjective Subjective: Comfortable in bed. No distress. CT abdomen without contrast unremarkable. CEA, CA19.9, PSA not elevated. Pain scrotum decreased. Objective - Vital Signs/Intake and Output Vital Signs (last 24 hours): Temp Pulse Resp BP Pulse Ox 99 F 83 20 105/63 99 02/24/18 21:32 02/24/18 21:32 02/24/18 21:32 02/24/18 21:32 02/24/18 21:32 Intake and Output: 02/24/18 02/25/18 18:59 06:59 Intake Total 480 260 Output Total 150 Balance 330 260 - Medications Medications: Current Medications Apixaban (Eliquis) 5 mg PO BID [facility] PRN Reason: Protocol Last Admin: 02/24/18 10:29 Dose: 5 mg Atorvastatin Calcium (Lipitor) 40 mg PO HS [facility] Last Admin: 02/24/18 21:28 Dose: 40 mg Diltiazem HCl (Cardizem Cd) 240 mg PO DAILY [facility] Last Admin: 02/24/18 10:33 Dose: Not Given Escitalopram Oxalate (Lexapro) 10 mg PO DAILY [facility] Last Admin: 02/24/18 10:29 Dose: 10 mg Famotidine (Pepcid) 40 mg PO HS [facility] Last Admin: 02/24/18 21:28 Dose: 40 mg Gabapentin (Neurontin) 300 mg PO BID [facility] PRN Reason: Protocol Last Admin: 02/24/18 19:37 Dose: 300 mg Piperacillin Sod/Tazobactam Sod (Zosyn 2.25 Gm In 0.9% 100 Ml) 2.25 gm in 100 mls @ 200 mls/hr IVPB Q6 [facility] PRN Reason: Protocol Stop: 03/03/18 00:01 Last Admin: 02/24/18 19:36 Dose: 200 mls/hr Sodium Chloride (Sodium Chloride 0.9%) 1,000 mls @ 100 mls/hr IV .Q10H [facility] Last Admin: 02/24/18 19:47 Dose: 100 mls/hr Oxycodone/Acetaminophen (Percocet 5/325 Mg Tab) 1 tab PO Q4H PRN PRN Reason: Pain, moderate (4-7) Stop: 02/27/18 08:10 - Labs Labs: PT 24.0 SECONDS (9.4-12.5) H 02/23/18 15:20 INR 2.07 (0.93-1.08) H 02/23/18 15:20 - Constitutional Appears: Chronically Ill - Head Exam Head Exam: ATRAUMATIC, NORMAL INSPECTION, NORMOCEPHALIC - Eye Exam Eye Exam: Normal appearance - ENT Exam ENT Exam: Mucous Membranes Moist - Neck Exam Neck Exam: Normal Inspection - Respiratory Exam Respiratory Exam: Clear to Ausculation Bilateral, NORMAL BREATHING PATTERN - Cardiovascular Exam Cardiovascular Exam: REGULAR RHYTHM, +S1, +S2 - GI/Abdominal Exam GI & Abdominal Exam: Soft, Normal Bowel Sounds - Extremities Exam Extremities Exam: Normal Inspection - Back Exam Back Exam: NORMAL INSPECTION - Neurological Exam Neurological Exam: Alert, Oriented x3 - Skin Skin Exam: Normal Color, Warm Assessment and Plan - Assessment and Plan (Free Text) Assessment: 1. Abnormal weight loss 2. History of prostate cancer 3. CVA 4. Anemia 5. Left Epididimitis Plan : CT abdomen unremarkable. Tumor markers are not elevated. PSA is not elevated. Weight loss is unlikely due to occult malignancy. Left epididimitis . on IV antibiotics. Iron deficiency anemia likely due to poor oral intake. IV iron 200 mg . B12, folate levels are normal. Old CVA. Multilevel degenrative disc disease. SPEP, immunofixation pending. Thank you Dr. Matias for allowing us to participate in his care.
--- NOTE | 2018-02-25 00:16 | CON ---
DATE: 02/24/2018 HISTORY OF PRESENT ILLNESS: A 72-year-old white male with past medical history of arthritis, chronic renal failure, atrial fibrillation, gout, history of TIA, and prostate cancer, came to the hospital with left testicular pain and swelling for last few days, and also complaining of difficulty moving left lower extremity, and patient is mostly bed bound. Ultrasound of the left testicle shows epididymitis. Patient is also going for carotid Doppler. REVIEW OF SYSTEMS: A 10-point review of systems was negative except difficulty moving left lower extremity and right facial weakness. Also has a history of TIA. PHYSICAL EXAMINATION: VITAL SIGNS: Blood pressure 91/49. HEENT: Normocephalic, atraumatic. Right facial weakness. Facial asymmetry was noted. NEUROLOGIC: Cranial nerves II through XII are tested. Pupils are reactive. EOM intact. Facial asymmetry with right fascial weakness. Moves all the extremities equally except left lower extremity weakness. Deep tendon reflexes 1+. Both plantars are downgoing. Sensory appears intact. Cerebellar, gait deferred. IMPRESSION: Left testicular epididymitis, arthritis, right hand cellulitis, history of transient ischemic attack, and prostate cancer. Patient is down for carotid Doppler. Head CT was done which shows white matter changes in subcortical white matter both cerebral hemispheres and also chronic right posterior temporal watershed zone infarct, possibly causing the left-sided weakness. Workup in progress, and add physical therapy. Antony Oliver MD
[2018-02-25] MEDS: Piperacillin/Tazobact 2.25gm 2.25 GM/100 ML BAG IVPB SCH ×4 (00:30→17:49)
[2018-02-25 06:49] LABS: HEMOGLOBIN 9.1 g/dL (14.0-18.0); MEAN CELL VOLUME 83.8 fl (80.0-105.0); MEAN CORPUSCULAR HEMOGLOBIN 25.4 pg (25.0-35.0); MEAN CORPUSCULAR HGB CONC 30.3 g/dl (31.0-37.0); MEAN PLATELET VOLUME 8.4 fl (7.0-11.0); RBC 3.58 10^6/uL (3.5-6.1); RED CELL DISTRIBUTION WIDTH 16.8 % (11.5-14.5); WHITE BLOOD COUNT 8.6 10^3/ul (4.5-11.0)
[2018-02-25 07:22] LABS: CALCIUM 8.6 mg/dL (8.4-10.5)
--- NOTE | 2018-02-25 07:37 | CP.PCM.PN ---
<Crystal Medina - Last Filed: 02/25/18 09:02> Subjective - Date & Time of Evaluation Date of Evaluation: 02/25/18 Time of Evaluation: 07:33 - Subjective Subjective: Progress Note for Anne Valentino PGY2 Patient seen and examined at bedside. I spoke with nursing staff who did not report any acute overnight events. Patient states he is doing well, but his leg is still weak. He complains of pain in his R testicle as well. He denies chest pain, shortness of breath, nausea/vomiting/diarrhea/constipation, numbness/ tingling, fever or chills. As per nursing staff, patient does not have any signs of dysphagia or problems swallowing. Objective - Vital Signs/Intake and Output Vital Signs (last 24 hours): Temp Pulse Resp BP Pulse Ox 99 F 83 20 105/63 99 02/24/18 21:32 02/24/18 21:32 02/24/18 21:32 02/24/18 21:32 02/24/18 21:32 Intake and Output: 02/25/18 02/25/18 06:59 18:59 Intake Total 320 Balance 320 - Medications Medications: Current Medications Apixaban (Eliquis) 5 mg PO BID [facility] PRN Reason: Protocol Last Admin: 02/24/18 10:29 Dose: 5 mg Atorvastatin Calcium (Lipitor) 40 mg PO HS [facility] Last Admin: 02/24/18 21:28 Dose: 40 mg Diltiazem HCl (Cardizem Cd) 240 mg PO DAILY [facility] Last Admin: 02/24/18 10:33 Dose: Not Given Escitalopram Oxalate (Lexapro) 10 mg PO DAILY [facility] Last Admin: 02/24/18 10:29 Dose: 10 mg Famotidine (Pepcid) 40 mg PO HS [facility] Last Admin: 02/24/18 21:28 Dose: 40 mg Gabapentin (Neurontin) 300 mg PO BID [facility] PRN Reason: Protocol Last Admin: 02/24/18 19:37 Dose: 300 mg Piperacillin Sod/Tazobactam Sod (Zosyn 2.25 Gm In 0.9% 100 Ml) 2.25 gm in 100 mls @ 200 mls/hr IVPB Q6 [facility] PRN Reason: Protocol Stop: 03/03/18 00:01 Last Admin: 02/25/18 05:29 Dose: 200 mls/hr Sodium Chloride (Sodium Chloride 0.9%) 1,000 mls @ 100 mls/hr IV .Q10H [facility] Last Admin: 02/24/18 19:47 Dose: 100 mls/hr Iron Sucrose 200 mg/ Sodium (Chloride) 110 mls @ 110 mls/hr IVPB ONCE ONE Stop: 02/25/18 09:59 Oxycodone/Acetaminophen (Percocet 5/325 Mg Tab) 1 tab PO Q4H PRN PRN Reason: Pain, moderate (4-7) Stop: 02/27/18 08:10 - Labs Labs: 02/25/18 06:20 02/25/18 06:20 PT 24.0 SECONDS (9.4-12.5) H 02/23/18 15:20 INR 2.07 (0.93-1.08) H 02/23/18 15:20 - Constitutional Appears: No Acute Distress - Head Exam Head Exam: ATRAUMATIC, NORMAL INSPECTION, NORMOCEPHALIC - Eye Exam Eye Exam: Normal appearance, PERRL Pupil Exam: NORMAL ACCOMODATION, PERRL - ENT Exam ENT Exam: Mucous Membranes Moist - Neck Exam Neck Exam: Full ROM - Respiratory Exam Respiratory Exam: Clear to Ausculation Bilateral, NORMAL BREATHING PATTERN. absent: Rales, Rhonchi, Wheezes - Cardiovascular Exam Cardiovascular Exam: Irregular Rhythm, +S1, +S2. absent: Gallop, Rubs, Murmur - GI/Abdominal Exam GI & Abdominal Exam: Soft, Normal Bowel Sounds. absent: Rigid, Tenderness, Mass , Rebound - Extremities Exam Extremities Exam: Normal Inspection. absent: Calf Tenderness, Pedal Edema - Neurological Exam Neurological Exam: Alert, Awake, CN II-XII Intact. absent: Oriented x3 (x [address] ) Neuro motor strength exam: Left Upper Extremity: 4, Right Upper Extremity: 5, Left Lower Extremity: 2/1, Right Lower Extremity: 5 Additional comments: L sided facial droop. - Psychiatric Exam Psychiatric exam: Normal Affect, Normal Mood - Skin Skin Exam: Dry, Warm Assessment and Plan - Assessment and Plan (Free Text) Assessment: This is a 72yo male with past medical history of gout, CKD stage IIIa, A.fib ( on Eliquis), CVA, prostate ca s/p radiation who is admitted for L leg weakness, R epidydimitis and anemia with weight loss. Leg weakness is suspicious for CVA that may have happened within the past few months. As per previous records, patient did not have any weakness or facial droop on the L side. Also Head CT results were not similar to previous CT 1yr ago. Plan: 1. L Leg weakness - Suspicious for CVA (possibly happened months ago) - Hx of CVA in L parietal and R watershed zone - Head CT showed several chronic infarcts including Large chronic right posterior temporoparietal watershed zone infarct - Neuro consulted- recs appreciated - Brain MRI ordered - Carotid doppler done- pending final read - Will obtain Echo - Last Echo (11/2016): EF 56% - Continue Lipitor - ASA on hold for anemia - Fall and aspiration precaution - Continue PT/OT 2. R Epidydimitis - Testicular US showed R epidydimitis - U/A positive for UTI, urine culture pending - blood culture negative thus far - Continue Zosyn - ID consulted- recs appreciated - Urology consulted 3. Anemia - With weight loss and hx of prostate cancer - CT A/P did not show any acute abnormalities or mass - As per Heme: most likely no acute malignancy at this time - Weight loss can be from failure to thrive from CVA - Iron studies showed anemia of chronic disease - IV Iron - Spep and immunofixation pending - GI consulted- recommend to hold Eliquis and scope on Friday 4. Hypotension (improving) - continue IV hydration - Maintain MAP>65 5. CKD stage IIIa - Avoid nephrotoxic agents - IV hydration 6. Hx of A.fib - Continue Cardizem - Eliquis on hold for anemia and EGD/Colonoscopy - Will obtain Echo to rule out any clots in heart 7. Hx of Depression - Continue Lexapro 8. Chronic bilateral leg pain - Gabapentin, pain control GI ppx: Pepcid DVT ppx: Heparin SC. Eliquis on hold for anemia and for procedure. Dispo: Physical therapy recommended [facility]. Will d/c to [facility] of choice once medically ready. Case seen, discussed and reviewed with Dr. Matias. Anne Medina PGY2 <Alvin Matias - Last Filed: 02/25/18 16:53> Objective - Vital Signs/Intake and Output Vital Signs (last 24 hours): Temp Pulse Resp BP Pulse Ox 99.2 F 101 H 20 131/78 99 02/25/18 14:00 02/25/18 14:00 02/25/18 14:00 02/25/18 14:00 02/25/18 14:00 Intake and Output: 02/25/18 02/25/18 06:59 18:59 Intake Total 320 480 Balance 320 480 - Medications Medications: Current Medications Apixaban (Eliquis) 5 mg PO BID [facility] PRN Reason: Protocol Last Admin: 02/24/18 10:29 Dose: 5 mg Atorvastatin Calcium (Lipitor) 40 mg PO HS [facility] Last Admin: 02/24/18 21:28 Dose: 40 mg Diltiazem HCl (Cardizem Cd) 240 mg PO DAILY [facility] Last Admin: 02/25/18 10:23 Dose: 240 mg Escitalopram Oxalate (Lexapro) 10 mg PO DAILY [facility] Last Admin: 02/25/18 10:23 Dose: 10 mg Famotidine (Pepcid) 40 mg PO HS [facility] Last Admin: 02/24/18 21:28 Dose: 40 mg Gabapentin (Neurontin) 300 mg PO BID [facility] PRN Reason: Protocol Last Admin: 02/25/18 10:23 Dose: 300 mg Heparin Sodium (Porcine) (Heparin) 5,000 units SC Q8 [facility] PRN Reason: Protocol Piperacillin Sod/Tazobactam Sod (Zosyn 2.25 Gm In 0.9% 100 Ml) 2.25 gm in 100 mls @ 200 mls/hr IVPB Q6 [facility] PRN Reason: Protocol Stop: 03/03/18 00:01 Last Admin: 02/25/18 13:48 Dose: 200 mls/hr Sodium Chloride (Sodium Chloride 0.9%) 1,000 mls @ 100 mls/hr IV .Q10H [facility] Last Admin: 02/24/18 19:47 Dose: 100 mls/hr Oxycodone/Acetaminophen (Percocet 5/325 Mg Tab) 1 tab PO Q4H PRN PRN Reason: Pain, moderate (4-7) Stop: 02/27/18 08:10 - Labs Labs: 02/25/18 06:20 02/25/18 06:20 PT 24.9 SECONDS (9.4-12.5) H 02/25/18 12:30 INR 2.13 (0.93-1.08) H 02/25/18 12:30 Assessment and Plan - Assessment and Plan (Free Text) Plan: Pt seen and examined. Agree with the note of the medical insurance claims processor. Labs and medications have been reviewed. Neuro is following pt. BP is better controlled. Waiting for echo. He will need [facility]. On ASA Cr is stable. Eliquis on hold due to anemia and possible bleeding but is at risk of CVA.
--- NOTE | 2018-02-25 09:30 | US ---
PROCEDURE: Bilateral carotid artery duplex ultrasound HISTORY: Carotid stenosis CVA PHYSICIAN(S): Pablo Diez MD. TECHNIQUE: Duplex sonography and color-flow Doppler were used to evaluate the carotid bifurcations and limited segments of the vertebral arteries bilaterally. Imaging is limited by the patient's inability to cooperate FINDINGS: There is mild to moderate smooth heterogeneous plaque noted at the carotid bifurcations bilaterally. The peak systolic velocity in the proximal right internal carotid artery is 73 cm/sec. This corresponds to a 20 to 39% proximal right ICA stenosis. Normal systolic velocities are noted in the proximal right external carotid artery. There is antegrade flow in the small right vertebral artery. The peak systolic velocity in the proximal left internal carotid artery is 82 cm/sec. This corresponds to a 20 to 39% proximal left ICA stenosis. Normal systolic velocities are noted in the proximal left external carotid artery. There is antegrade flow in the left vertebral artery. IMPRESSION: 1. Bilateral 20-39% proximal ICA stenoses. 2. Antegrade flow in both vertebral arteries. 3. Limited study
[2018-02-25] MEDS: diltiaZEM 240 mg/24 Hours CD Cap PO SCH (10:23)
[2018-02-25 13:03] LABS: INR 2.13 (0.93-1.08); PROTHROMBIN TIME 24.9 SECONDS (9.4-12.5)
--- NOTE | 2018-02-25 15:17 | CARD ---
APPROVED REPORT EXAM: Two-dimensional and M-mode echocardiogram with Doppler and color Doppler. INDICATION CVA/TIA Atrial Fibrillation 2D DIMENSIONS Left Atrium (2D)4.1 (1.6-4.0cm)IVSd1.3 (0.7-1.1cm) LVDd3.8 (3.9-5.9cm)PWd1.3 (0.7-1.1cm) LVDs3.0 (2.5-4.0cm)FS (%) 21.6 % LVEF (%)44.5 (>50%) M-Mode DIMENSIONS Aortic Root2.90 (2.2-3.7cm)Aortic Cusp Exc.1.30 (1.5-2.0cm) Aortic Valve AoV Peak Ruhgqmoh800.0cm/Trish Peak GR.7mmHg Mitral Valve E/A ratio0.0 TDI E/Lateral E'0.0E/Medial E'0.0 Tricuspid Valve TR Peak [id number] [id number] Peak Gr.27mmHg [id number] LEFT VENTRICLE The left ventricle is normal size. There is borderline concentric left ventricular hypertrophy. The systolic function is mildly impaired. There is global hypokinesis of the left ventricle. RIGHT VENTRICLE The right ventricle is normal size. There is normal right ventricular wall thickness. The right ventricular systolic function is normal. ATRIA The left atrium is borderline dilated. The right atrium size is normal. AORTIC VALVE The aortic valve is mildly sclerotic. No aortic regurgitation is present. There is no aortic valvular stenosis. MITRAL VALVE Mitral regurgitation is mild. TRICUSPID VALVE There is mild tricuspid regurgitation. There is mild pulmonary hypertension. GREAT VESSELS The aortic root is normal in size. PERICARDIAL EFFUSION There is no pericardial effusion. <Conclusion> The left ventricle is normal size. There is borderline concentric left ventricular hypertrophy. The systolic function is mildly impaired. There is global hypokinesis of the left ventricle. Mitral regurgitation is mild. There is mild tricuspid regurgitation. There is mild pulmonary hypertension.
[2018-02-25] MEDS: Sodium Chloride 0.9% 1,000 ML IV SCH (21:05)
--- NOTE | 2018-02-25 21:42 | PN ---
DATE: 02/25/2018 SUBJECTIVE: Patient was seen early this morning in room 567, bed 1. No fevers and no chills. PHYSICAL EXAMINATION: VITAL SIGNS: Temperature of 98, blood pressure is 130/70, respiratory rate of 20, heart rate of 97. HEENT: Unremarkable. NECK: Supple. LUNGS: Have decreased breath sounds. HEART: Normal S1, S2. ABDOMEN: Soft. LABORATORY DATA: White count of 8.6, hemoglobin of 9, platelets of 315. Chemistries reveal a BUN of 23, creatinine of 1.8. Urinalysis is noted. Microbiology reveals gram-negative rods in urine cultures. The blood cultures, no growth. Review of orders reveals the patient to be on Zosyn. ASSESSMENT AND PLAN: A 72-year-old male with a left-sided epididymitis, history of gouty arthritis, history of right hand cellulitis, prostate cancer, atrial fibrillation. We will check on the identification and sensitivity of the gram-negative ming, which is pending. Dr. Matias's note from today is reviewed. Neurology consult is requested. We will follow with you. Krishna Key MD
--- NOTE | 2018-02-26 08:05 | CP.PCM.PN ---
Subjective - Date & Time of Evaluation Date of Evaluation: 02/26/18 Time of Evaluation: 07:59 - Subjective Subjective: Progress Note for Anne Valentino PGY2 Patient seen and examined at bedside. As per nursing staff, there were no acute overnight events. Patient reports feeling well today. He denies chest pain, shortness of breath, nausea/vomiting/diarrhea, fever/chills, numbness or tingling. He states that his testicular swelling has improved. Objective - Vital Signs/Intake and Output Vital Signs (last 24 hours): Temp Pulse Resp BP Pulse Ox 99.2 F 101 H 20 131/78 99 02/25/18 14:00 02/25/18 14:00 02/25/18 14:00 02/25/18 14:00 02/25/18 14:00 Intake and Output: 02/26/18 02/26/18 06:59 18:59 Intake Total 540 Output Total 3 Balance 537 - Medications Medications: Current Medications Apixaban (Eliquis) 5 mg PO BID [facility] PRN Reason: Protocol Last Admin: 02/24/18 10:29 Dose: 5 mg Atorvastatin Calcium (Lipitor) 40 mg PO HS [facility] Last Admin: 02/25/18 21:04 Dose: 40 mg Diltiazem HCl (Cardizem Cd) 240 mg PO DAILY [facility] Last Admin: 02/25/18 10:23 Dose: 240 mg Escitalopram Oxalate (Lexapro) 10 mg PO DAILY [facility] Last Admin: 02/25/18 10:23 Dose: 10 mg Famotidine (Pepcid) 40 mg PO HS [facility] Last Admin: 02/25/18 21:04 Dose: 40 mg Gabapentin (Neurontin) 300 mg PO BID [facility] PRN Reason: Protocol Last Admin: 02/25/18 17:49 Dose: 300 mg Heparin Sodium (Porcine) (Heparin) 5,000 units SC Q8 [facility] PRN Reason: Protocol Last Admin: 02/26/18 05:13 Dose: Not Given Piperacillin Sod/Tazobactam Sod (Zosyn 2.25 Gm In 0.9% 100 Ml) 2.25 gm in 100 mls @ 200 mls/hr IVPB Q6 [facility] PRN Reason: Protocol Stop: 03/03/18 00:01 Last Admin: 02/25/18 17:49 Dose: 200 mls/hr Sodium Chloride (Sodium Chloride 0.9%) 1,000 mls @ 100 mls/hr IV .Q10H [facility] Last Admin: 02/25/18 21:05 Dose: Not Given Oxycodone/Acetaminophen (Percocet 5/325 Mg Tab) 1 tab PO Q4H PRN PRN Reason: Pain, moderate (4-7) Stop: 02/27/18 08:10 Polyethylene Glycol/Electrolytes (Golytely) 4,000 ml PO ONCE ONE Stop: 02/26/18 14:01 - Labs Labs: 02/25/18 06:20 02/25/18 06:20 PT 24.9 SECONDS (9.4-12.5) H 02/25/18 12:30 INR 2.13 (0.93-1.08) H 02/25/18 12:30 - Constitutional Appears: No Acute Distress - Head Exam Head Exam: ATRAUMATIC, NORMAL INSPECTION, NORMOCEPHALIC - Eye Exam Eye Exam: Normal appearance, PERRL Pupil Exam: NORMAL ACCOMODATION, PERRL - ENT Exam ENT Exam: Mucous Membranes Moist - Respiratory Exam Respiratory Exam: Clear to Ausculation Bilateral, NORMAL BREATHING PATTERN. absent: Rales, Rhonchi, Wheezes - Cardiovascular Exam Cardiovascular Exam: Irregular Rhythm, +S1, +S2. absent: Gallop, Rubs, Murmur - GI/Abdominal Exam GI & Abdominal Exam: Soft, Normal Bowel Sounds. absent: Rigid, Tenderness, Mass , Rebound - Exam Exam: Scrotal Swelling (and erythema, but decreasing in severity ) - Extremities Exam Extremities Exam: Normal Inspection. absent: Calf Tenderness, Pedal Edema - Neurological Exam Neurological Exam: Alert, Awake, CN II-XII Intact Neuro motor strength exam: Left Upper Extremity: 4, Right Upper Extremity: 5, Left Lower Extremity: 2/1, Right Lower Extremity: 5 Additional comments: L side facial droop - Skin Skin Exam: Dry, Warm Assessment and Plan - Assessment and Plan (Free Text) Assessment: This is a 72yo male with past medical history of gout, CKD stage IIIa, A.fib ( on Eliquis), CVA, prostate ca s/p radiation who is admitted for L leg weakness, R epidydimitis with UTI and anemia with weight loss. Leg weakness is suspicious for CVA that may have happened within the past few months. Plan: 1. L Leg weakness - Suspicious for CVA (possibly happened months ago) w/ hx of previous CVA - Head CT reviewed - MRI brain pending - Carotid doppler showed 20-39% stenosis bilaterally - Echo showed EF 44%, borderline LV function without any evidence of thrombus - Pt on Lipitor and ASA - Physical therapy - Fall precaution, aspiration precaution (as per nurse- pt has no problems swallowing but needs assistance with feeding) - pt has Hx of A.fib. Eliquis on hold for active anemia and for EGD/Colonoscopy tomorrow. There is increased risk of CVA, but is on ASA and Heparin SC. Will restart Eliquis after procedure tomorrow if findings are benign 2. R Epidydimitis (improving) - Urine culture positive for E. Coli resistant to Zosyn, Sensitive to Merrem - Will change Zosyn to Merrem - ID consulted- recs appreciated - Urology consulted 3. Iron Deficiency Anemia - S/p IV Iron - GI consulted- plan for EGD and colonoscopy tomorrow - Heme consulted- Do not think weight loss and anemia secondary to cancer - Weight loss most likely secondary from failure to thrive 4. CKD stage IIIa (Stable) - Continue to avoid nephrotoxic agents 5. A.fib - Rate controlled - Cardizem - Eliquis on hold for anemia and EGD/Colonoscopy. Will restart once procedure is done if there are no acute findings - on ASA 6. Depression - Lexapro 8. Chronic bilateral leg pain - secondary to lumbar spine stenosis in past - Gabapentin, pain control GI ppx: Pepcid DVT ppx: Heparin SC. Eliquis on hold for anemia and for procedure. Dispo: As per case management, patient has used his rehab days for this year. Will discuss further with case management and daughter Bri. Case seen, discussed and reviewed with Dr. Matias. Anne Medina PGY2
[2018-02-26] MEDS ORDERED: Oxycodone/Acetaminophen 10/325 mg Tab PO PRN (08:40)
[2018-02-26] MEDS: diltiaZEM 240 mg/24 Hours CD Cap PO SCH ×2 (09:44→09:50)
[2018-02-26] MEDS ORDERED: Meropenem 500 MG in Sodium Chloride 0.9% 50 ML IVPB SCH (11:45)
[2018-02-26 12:38] LABS: ALBUMIN (PEP) 2.1 g/dL (3.8-4.8); ALPHA-1-GLOBULIN (PEP) 0.5 g/dL (0.2-0.3)
[2018-02-26] MEDS ORDERED: Peg-Electrolyte Oral Soln 4L (Golytely) PO ONE (14:00)
--- NOTE | 2018-02-26 14:25 | PCM.URO ---
Urology Progress Note - Objective Lab Studies: Reviewed (follow up note see dictated note no gu change) Lab Results Last 24 Hours: Laboratory Results - last 24 hr 02/24/18 02/26/18 06:45 14:01 Albumin (PEP) 2.1 L Xtnrh-5-Syrbnkrda 0.5 H Vcjkh-7-Bekffhmji 1.3 H Iaav-1-Dtxauljj 0.3 L Oarr-4-Snkhblop 0.9 H Gamma Globulins 1.5 Abnorm Protein Band 1 0.22 H Abnorm Protein Band 2 TEST NOT PERFORMED Abnorm Protein Band 3 TEST NOT PERFORMED KATH & SPEP Interp See note Serum Immunofixation Detected H BBK History Checked Patient has bt Intake & Output: Intake & Output 02/25/18 02/26/18 02/26/18 18:59 06:59 18:59 Intake Total 480 540 Output Total 3 Balance 480 537 Weight 183 lb 4.8 oz Intake: Oral 480 540 Output: Urine 3 Urine, Voided 3 Stool 0 Other: # Bowel Movements 3 Vital Signs: Vital Signs - 24 hr 02/26/18 02/26/18 06:00 09:50 Temperature 98.3 F Pulse Rate 92 H 104 H Respiratory 20 Rate Blood Pressure 123/75 94/52 L O2 Sat by Pulse 98 Oximetry
--- NOTE | 2018-02-26 17:02 | MRI ---
PROCEDURE: MRI BRAIN WITHOUT CONTRAST HISTORY: L sided weakness, hx of CVA COMPARISON: Unenhanced head CT 02/23/2018. TECHNIQUE: Multiplanar, multisequence MR images of the brain were obtained without intravenous contrast enhancement. FINDINGS: HEMORRHAGE: None DWI: No evidence of an acute or early subacute infarction. BRAIN PARENCHYMA: Chronic infarction at the left temporal and right parietal lobes are identified. Relatively prominent chronic microangiopathy is identified within cerebral white matter once again and moderate diffuse cerebral atrophy is also reiterated. There is no positive mass effect. There is no suspicious extra-axial fluid collection appreciated. Chronic infarct of the left cerebellum is also noted, including multiple lacunes. VENTRICLES: Unremarkable. No hydrocephalus. CRANIUM: Unremarkable. ORBITS: Grossly unremarkable. PARANASAL SINUSES/MASTOIDS: Mild multifocal sinusitis affects the left sphenoid greater than bilateral maxillary sinuses. VASCULAR SYSTEM: Skull base flow voids intact. OTHER FINDINGS: None. IMPRESSION: No definite acute or subacute brain infarction. No definite acute intracranial hemorrhage or mass effect. Chronic infarctions are identified at the left temporal and right parietal lobes and left cerebellum. Reiterated age related neuro degenerative changes.
--- NOTE | 2018-02-26 17:17 | CT ---
PROCEDURE: CT HEAD WITHOUT CONTRAST. HISTORY: altered mental status COMPARISON: 02/23/2018. CT head. February 27, 2018. MRI brain TECHNIQUE: Axial computed tomography images were obtained through the head/brain without intravenous contrast. Coronal and sagittal reconstructed images. Radiation dose: Total exam DLP = 882.81. MGy-cm. This CT exam was performed using one or more of the following dose reduction techniques: Automated exposure control, adjustment of the mA and/or kV according to patient size, and/or use of iterative reconstruction technique. FINDINGS: HEMORRHAGE: No intracranial hemorrhage. BRAIN: No mass effect or edema. Cortical atrophy, periventricular small vessel disease. VENTRICLES: Unremarkable. No hydrocephalus. CALVARIUM: Unremarkable. PARANASAL SINUSES: Unremarkable as visualized. No significant inflammatory changes. MASTOID AIR CELLS: Unremarkable as visualized. No inflammatory changes. OTHER FINDINGS: Incompletely visualized orthopedic hardware cervical spine IMPRESSION: No acute intracranial abnormalities. No significant findings to account for the clinical presentation. No significant interval change compared to the prior examination(s).
--- NOTE | 2018-02-26 17:19 | PCM.RRT ---
<José Luis Govea - Last Filed: 02/26/18 17:22> INTERIOR ASSEMBLIES INSTALLER Nurse Assessment - Situation Date: 02/26/18 Time INTERIOR ASSEMBLIES INSTALLER was called: 16:39 INTERIOR ASSEMBLIES INSTALLER Responder Arrival Time: 16:41 INTERIOR ASSEMBLIES INSTALLER Location:: [facility] [place] [employer]SEM[employer] INSTALLER Reason for Call: O2 Saturation below 90%, Change in Mental Status INTERIOR ASSEMBLIES INSTALLER Called By: RN - IV IV Inserted during INTERIOR ASSEMBLIES INSTALLER?: Yes - Respiratory Oxygen Delivery Method: Room Air, Nasal Cannula @L/min Oxygen Flow Rate: 2 Received Nebulizer Treatments:: No Was the Patient Ventilated with Bag/Mask 100% O2?: No Secretions Suctioned?: No Was the Patient Intubated?: No Was the Patient Placed on a Ventilator?: No - Diagnostic Test Ordered EKG: Yes Chest X-Ray: No CT Scan: Yes CPR started during INTERIOR ASSEMBLIES INSTALLER?: No - Vital Signs Vital Sign: Rapid Response Vital Sign Blood Pressure 130/85 Pulse Rate 114 Respiratory Rate 20 Temperature 98.0 F Oxygen Saturation 100 - Finger Stick Blood Glucose Finger Stick Blood Glucose: 101 - Time INTERIOR ASSEMBLIES INSTALLER Ended Time INTERIOR ASSEMBLIES INSTALLER Ended: 16:46 - Vital Signs at end of INTERIOR ASSEMBLIES INSTALLER Vital Signs at end of INTERIOR ASSEMBLIES INSTALLER: Rapid Response End Vital Sign Blood Pressure 134/92 Pulse Rate 109 Respiratory Rate 19 Temperature 98.7 F O2 Sat by Pulse Oximetry 100 I.Reason for INTERIOR ASSEMBLIES INSTALLER - A) Acute Change in Patient: Subjective: INTERIOR ASSEMBLIES INSTALLER called at 1711. Nurse noticed patient was more confused than earlier in the day, so INTERIOR ASSEMBLIES INSTALLER was called. Patient was evaluated and was alert to person, but not place or time. Patient had no new motor or sensory deficits. Vitals signs displayed BP at 130/80, HR of 100, O2 sat of 98%, and glucose of 101. EKG demonstrated a-fib which patient was admitted with. Patient was taken for head CT. Patient will have CBC, CMP, and INR checked. - Neurological Status (Select all that apply): Confused - Respiratory Oxygen Delivery Method: Room Air, Nasal Cannula @L/min Oxygen Flow Rate: 2 - Constitutional Appears: Non-toxic, No Acute Distress - Head Head Exam: ATRAUMATIC, NORMAL INSPECTION, NORMOCEPHALIC - Eyes Eye Exam: EOMI, Normal appearance - Respiratory Exam Respiratory Exam: Clear to Ausculation Bilateral, NORMAL BREATHING PATTERN - Cardiovascular Exam Cardiovascular Exam: Tachycardia, Irregular Rhythm - GI/Abdominal Exam GI & Abdominal Exam: Soft, Normal Bowel Sounds. absent: Tenderness - Neurological Exam Neurological Exam: Alert, Awake Additional exam: Oriented to person Left sided weakness from prior CVA - Extremities Exam Extremities Exam: Normal Inspection Plan - Assessment of Findings&Treatment Plan 72 year old male with past medical history of gout, CKD stage IIIa, A-fib on eliquis, prior CVA with deficits, and prostate cancer s/p radiation prseents with worsening confusion. PMD and family notified. Plan: Repeat Head CT Awaiting Brain MRI CBC CMP INR Neurochecks q4h <Leeroy Mejia - Last Filed: 02/28/18 15:51> INTERIOR ASSEMBLIES INSTALLER Nurse Assessment - Vital Signs Vital Sign: Rapid Response Vital Sign Blood Pressure 130/85 Pulse Rate 114 Respiratory Rate 20 Temperature 98.0 F Oxygen Saturation 100 - Vital Signs at end of INTERIOR ASSEMBLIES INSTALLER Vital Signs at end of INTERIOR ASSEMBLIES INSTALLER: Rapid Response End Vital Sign Blood Pressure 134/92 Pulse Rate 109 Respiratory Rate 19 Temperature 98.7 F O2 Sat by Pulse Oximetry 100 Attending/Attestation - Attestation I have personally seen and examined this patient.: Yes I have fully participated in the care of the patient.: Yes I have reviewed all pertinent clinical information, including history, physical exam and plan: Yes Notes (Text): 02/28/18 15:49 Medical record note made by the resident after discussion with my direction and input after the patient was personally seen and examined by me. I have reviewed the chart and agree that the record accurately reflects by personal performance of the history, physical exam, data review, and medical decision-making, in the course for the patient. I have also personally directed the plan of care. 72 year old male with past medical history of gout, CKD stage IIIa, A-fib on eliquis, prior CVA with deficits, and prostate cancer s/p radiation was seen in rapid response as he was found to confused and drowsy.Patient is maintining air way, he is not hypoglycemic or hypercapnic.We will get CT scan of head.PMD has been informed by medical collections specialist.Patient will be transferred to telemetry.
[2018-02-26 18:26] LABS: BASO # 0.02 K/mm3 (0.0-2.0); BASO % 0.2 % (0.0-3.0); EOS # 0.2 (0.0-0.7); EOS % 1.5 % (1.5-5.0); GRAN # 6.49 (1.4-6.5); HEMOGLOBIN 8.9 g/dL (14.0-18.0); LYMPH # 2.1 (1.2-3.4); LYMPH % 21.5 % (22.0-35.0); MEAN CELL VOLUME 83.2 fl (80.0-105.0); MEAN CORPUSCULAR HEMOGLOBIN 25.7 pg (25.0-35.0); MEAN CORPUSCULAR HGB CONC 30.9 g/dl (31.0-37.0); MEAN PLATELET VOLUME 8.4 fl (7.0-11.0); MONO # 1.1 (0.1-0.6); MONO % 10.8 % (1.0-6.0); RBC 3.46 10^6/uL (3.5-6.1); RED CELL DISTRIBUTION WIDTH 16.8 % (11.5-14.5); WHITE BLOOD COUNT 9.8 10^3/ul (4.5-11.0)
[2018-02-26 18:36] LABS: ALB/GLOB RATIO 0.7 (1.1-1.8); ALBUMIN 2.9 g/dL (3.0-4.8); CALCIUM 8.6 mg/dL (8.4-10.5)
--- NOTE | 2018-02-26 19:04 | CON ---
DATE: 02/25/2018 UROLOGY CONSULT REASON FOR CONSULTATION: Epididymitis. HISTORY OF PRESENT ILLNESS: Mr. Grewal is a gentleman who has history of prostate cancer. See the admitting chart notes. He has been treated elsewhere. He denies any voiding dysfunction, but he reports that he has urinary incontinence, but he says this is his baseline. He has no gross hematuria. Will need further urology workup. See below. PAST MEDICAL AND SURGICAL: Listed on the chart. REVIEW OF SYSTEMS: Listed above, otherwise noncontributory. MEDICATIONS: See the chart. PHYSICAL EXAMINATION: ABDOMEN: His abdomen is difficult to evaluate for a gross distension. GENITOURINARY: He has a in his hemiscrotum, it is somewhat tender. There is no fluctuance. There is no abscess detected. DIAGNOSES: Prostate cancer, status post treatment. Most likely, an overflow incontinence. We will discuss further plans in terms of workup and treatment. For now, antibiotics elevation are the mainstay. We have to discuss in terms of his general healthy and further diagnostic studies and workup. PLAN: So the Urology plan is as follows; antibiotics elevation and then we can discuss and we will actually recommend for the patient to have evaluation with a cystoscope. We have to discuss this with the primary care team and the physicians as well. Further plans will follow. So the diagnoses are prostate cancer and epididymitis. Plan is antibiotics elevation and then workup to follow. Tramaine Fischer MD
[2018-02-26 19:09] LABS: INR 1.63 (0.93-1.08); PROTHROMBIN TIME 18.8 SECONDS (9.4-12.5)
[2018-02-26 19:10] LABS: PARTIAL THROMBOPLASTIN TIME 34.7 Seconds (25.1-36.5)
--- NOTE | 2018-02-26 19:12 | PN ---
DATE: 02/26/2018 SUBJECTIVE: The patient is in bed in no acute distress, was seen earlier this morning. PHYSICAL EXAMINATION: VITAL SIGNS: Temperature is 99, blood pressure is 120/70, respiratory rate 20, heart rate of 101. HEENT: Unremarkable. NECK: Supple. LUNGS: Have decreased breath sounds. HEART: Normal S1, S2. ABDOMEN: Soft, nontender. LABORATORY DATA: Reveals a white count of 8.6, hemoglobin of 9, platelets of 315. Chemistries reveals a BUN of 23, creatinine of 1.8. Urinalysis is noted and microbiology reveals the patient has an E. Coli in the urine sensitive to Bactrim, ertapenem, cefepime, nitrofurantoin, meropenem, intermediate to Zosyn. The blood cultures are reported to be negative. Review of orders reveals the patient to be on no antibiotics. The patient is scheduled for an MRI of the head ordered by . ASSESSMENT AND PLAN: A 72-year-old male with a left-sided epididymitis, history of gouty arthritis, history of right hand cellulitis, prostate cancer, atrial fibrillation and now with a left-sided epididymitis with Escherichia coli in the urine resistant to Cipro, currently off of antibiotics. The meropenem was dropped off by Pharmacy. We will start cefepime 1 g every 12 hours adjusted for renal insufficiency. We will follow the patient clinically. Krishna Key MD
[2018-02-26] MEDS: Cefepime 1gm in NS 100ml 1 GM/100 ML BAG IVPB SCH (21:19)
--- NOTE | 2018-02-26 21:36 | CP.PCM.PN ---
Subjective - Date & Time of Evaluation Date of Evaluation: 02/26/18 Time of Evaluation: 10:00 - Subjective Subjective: No events overnight. No chest pain, shortness of breath. Oral intake is good. No nausea, vomiting. No difficulty swallowing. Objective - Vital Signs/Intake and Output Vital Signs (last 24 hours): Temp Pulse Resp BP Pulse Ox 100.4 F H 100 H 20 128/96 H 94 L 02/26/18 16:24 02/26/18 14:00 02/26/18 14:00 02/26/18 14:00 02/26/18 14:00 Intake and Output: 02/26/18 02/27/18 18:59 06:59 Intake Total 480 Balance 480 - Medications Medications: Current Medications Acetaminophen (Tylenol 325mg Tab) 650 mg PO Q4H PRN PRN Reason: Fever >100.4 F Last Admin: 02/26/18 16:24 Dose: 650 mg Apixaban (Eliquis) 5 mg PO BID [facility] PRN Reason: Protocol Last Admin: 02/24/18 10:29 Dose: 5 mg Atorvastatin Calcium (Lipitor) 40 mg PO HS [facility] Last Admin: 02/26/18 21:19 Dose: 40 mg Diltiazem HCl (Cardizem Cd) 240 mg PO DAILY [facility] Last Admin: 02/26/18 09:50 Dose: Not Given Escitalopram Oxalate (Lexapro) 10 mg PO DAILY [facility] Last Admin: 02/26/18 09:44 Dose: 10 mg Famotidine (Pepcid) 40 mg PO HS [facility] Last Admin: 02/26/18 21:19 Dose: 40 mg Gabapentin (Neurontin) 300 mg PO BID [facility] PRN Reason: Protocol Last Admin: 02/26/18 17:32 Dose: 300 mg Heparin Sodium (Porcine) (Heparin) 5,000 units SC Q8 [facility] PRN Reason: Protocol Last Admin: 02/26/18 05:13 Dose: Not Given Cefepime HCl (Maxipime 1gm) 1 gm in 100 mls @ 100 mls/hr IVPB Q12 [facility] PRN Reason: Protocol Stop: 03/19/18 22:01 Last Admin: 02/26/18 21:19 Dose: 100 mls/hr Oxycodone/Acetaminophen (Percocet 10/325 Mg Tab) 1 tab PO Q4H PRN PRN Reason: Pain, moderate (4-7) - Labs Labs: 02/26/18 18:01 18 18:01 PT 18.8 SECONDS (9.4-12.5) H 02/26/18 18:01 INR 1.63 (0.93-1.08) H 02/26/18 18:01 APTT 34.7 Seconds (25.1-36.5) 02/26/18 18:01 - Constitutional Appears: Chronically Ill - Head Exam Head Exam: ATRAUMATIC, NORMAL INSPECTION, NORMOCEPHALIC - Eye Exam Eye Exam: Normal appearance - ENT Exam ENT Exam: Mucous Membranes Moist - Neck Exam Neck Exam: Normal Inspection - Respiratory Exam Respiratory Exam: Clear to Ausculation Bilateral, NORMAL BREATHING PATTERN - Cardiovascular Exam Cardiovascular Exam: REGULAR RHYTHM, +S1 - GI/Abdominal Exam GI & Abdominal Exam: Soft, Normal Bowel Sounds - Extremities Exam Extremities Exam: Normal Capillary Refill, Normal Inspection - Back Exam Back Exam: NORMAL INSPECTION - Neurological Exam Neurological Exam: Abnormal Gait, Alert, Awake - Skin Skin Exam: Normal Color, Warm Assessment and Plan - Assessment and Plan (Free Text) Assessment: 1. Anemia : multi factorial, iron deficiency/ chronic disease/ Chronic kidney disease. 2. Multi level degenerative disease spine. SPEP, IF showed faint M protein. This is clinically insignificant. 3. Abnormal weight loss : CT abdomen- unremarkable, tumor markers normal. Unlikely has occult malignancy. 4. PRODUCTION ANALYST : Multiple infarctions B/L temporal lobes. neurology following. Thank you Dr. Matias for allowing us to participate in his care.
--- NOTE | 2018-02-26 21:38 | CARD ---
APPROVED REPORT EKG Measurement Heart [id number] <Conclusion> Atrial fibrillation with rapid ventricular response Inferior infarct, age undetermined Abnormal ECG
[2018-02-27 07:13] LABS: BLOOD UREA NITROGEN 14 mg/dL (7-21); CALCIUM 8.9 mg/dL (8.4-10.5); GFR AFRICAN-AMERICAN > 60; GFR NON-AFRICAN AMERICAN 54
[2018-02-27 07:17] LABS: PROTHROMBIN TIME 17.3 SECONDS (9.4-12.5)
[2018-02-27 07:18] LABS: INR 1.49 (0.93-1.08)
[2018-02-27] MEDS ORDERED: Potassium Chloride 20 mEq ER Tab PO ONE (07:41)
--- NOTE | 2018-02-27 08:00 | CP.PCM.PN ---
<Crystal Medina - Last Filed: 02/27/18 10:35> Subjective - Date & Time of Evaluation Date of Evaluation: 02/27/18 Time of Evaluation: 08:00 - Subjective Subjective: Progress Note for Anne Valentino PGY2 Patient seen and examined at bedside. Yesterday he had a rapid response called for lethargy. Vitals were stable and no new focal neurologist deficits were noted. Head CT and labs were reviewed and there were no acute changes. Today patient is awake and alert. He is complaining of diarrhea secondary to the bowel prep for colonoscopy. He denies chest pain, shortness of breath, nausea/ vomiting, fever/chills, numbness/tingling. Objective - Vital Signs/Intake and Output Vital Signs (last 24 hours): Temp Pulse Resp BP Pulse Ox 100.4 F H 100 H 20 128/96 H 94 L 02/26/18 16:24 02/26/18 14:00 02/26/18 14:00 02/26/18 14:00 02/26/18 14:00 Intake and Output: 02/27/18 02/27/18 06:59 18:59 Intake Total 480 Balance 480 - Medications Medications: Current Medications Acetaminophen (Tylenol 325mg Tab) 650 mg PO Q4H PRN PRN Reason: Fever >100.4 F Last Admin: 02/26/18 16:24 Dose: 650 mg Apixaban (Eliquis) 5 mg PO BID [facility] PRN Reason: Protocol Last Admin: 02/24/18 10:29 Dose: 5 mg Atorvastatin Calcium (Lipitor) 40 mg PO HS [facility] Last Admin: 02/26/18 21:19 Dose: 40 mg Diltiazem HCl (Cardizem Cd) 240 mg PO DAILY [facility] Last Admin: 02/26/18 09:50 Dose: Not Given Escitalopram Oxalate (Lexapro) 10 mg PO DAILY [facility] Last Admin: 02/26/18 09:44 Dose: 10 mg Famotidine (Pepcid) 40 mg PO HS [facility] Last Admin: 02/26/18 21:19 Dose: 40 mg Gabapentin (Neurontin) 300 mg PO BID [facility] PRN Reason: Protocol Last Admin: 02/26/18 17:32 Dose: 300 mg Heparin Sodium (Porcine) (Heparin) 5,000 units SC Q8 [facility] PRN Reason: Protocol Last Admin: 02/26/18 05:13 Dose: Not Given Cefepime HCl (Maxipime 1gm) 1 gm in 100 mls @ 100 mls/hr IVPB Q12 [facility] PRN Reason: Protocol Stop: 03/19/18 22:01 Last Admin: 02/26/18 21:19 Dose: 100 mls/hr Oxycodone/Acetaminophen (Percocet 10/325 Mg Tab) 1 tab PO Q4H PRN PRN Reason: Pain, moderate (4-7) - Labs Labs: 02/26/18 18:01 02/27/18 06:20 PT 17.3 SECONDS (9.4-12.5) H 02/27/18 06:20 INR 1.49 (0.93-1.08) H 02/27/18 06:20 APTT 34.7 Seconds (25.1-36.5) 02/26/18 18:01 - Constitutional Appears: No Acute Distress - Head Exam Head Exam: ATRAUMATIC, NORMAL INSPECTION, NORMOCEPHALIC - Eye Exam Eye Exam: Normal appearance Pupil Exam: NORMAL ACCOMODATION - ENT Exam ENT Exam: Mucous Membranes Moist - Respiratory Exam Respiratory Exam: Clear to Ausculation Bilateral, NORMAL BREATHING PATTERN. absent: Rales, Rhonchi, Wheezes - Cardiovascular Exam Cardiovascular Exam: REGULAR RHYTHM, +S1, +S2. absent: Gallop, Rubs, Murmur - GI/Abdominal Exam GI & Abdominal Exam: Soft, Normal Bowel Sounds. absent: Rigid, Tenderness, Mass , Rebound - Extremities Exam Extremities Exam: Normal Inspection. absent: Calf Tenderness, Pedal Edema - Neurological Exam Neurological Exam: Alert, Awake, CN II-XII Intact Neuro motor strength exam: Left Upper Extremity: 4, Right Upper Extremity: 5, Left Lower Extremity: 2/1, Right Lower Extremity: 5 - Psychiatric Exam Psychiatric exam: Normal Affect, Normal Mood - Skin Skin Exam: Dry, Warm Assessment and Plan - Assessment and Plan (Free Text) Assessment: This is a 72yo male with past medical history of gout, CKD stage IIIa, A.fib ( on Eliquis), CVA, prostate ca s/p radiation who is admitted for 1. E.Coli UTI with R epididymitis 2. L Leg weakness (secondary to chronic CVA) 3. Anemia 4. Weight loss 5. A fib (rate contolled0 6. CKD stage IIIa Plan: 1. L Leg weakness - Suspicious for CVA (possibly happened months ago) w/ hx of previous CVA - Head CT, brain MRI and carotid dopplers reviewed - Echo showed no evidence of thrombus - Will start patient on ASA after colonoscopy - Neuro consulted- recs appreciated - Continue Lipitor, physical therapy and occupational therapy - Will restart Eliquis after procedure if there are no acute findings. Patient is at increased risk for CVA. 2. R Epidydimitis (improving) - with UTI positive for E.Coli that is sensitive to Cefepime - Continue IV Cefepime (day #2) - ID on consult- recommendations appreciated - Urology consulted- recommend outpatient cystoscopy 3. Iron Deficiency Anemia (stable) - S/p IV Iron - Heme consulted- recs appreciated - GI consulted- EGD and colonoscopy today- will follow up results and will possibly restart anticoagulation after procedure 4. CKD stage IIIa (Stable) - Monitor Cr and electrolytes (replace as needed) - Renally dose medications 5. A.fib - Rate controlled - Continue Cardizem - Will restart ASA and Eliquis in AM 6. Depression - Continue Lexapro 7. Chronic bilateral leg pain - secondary to lumbar spine stenosis in past (old records reviewed) - Gabapentin - Percocet prn GI ppx: Pepcid DVT ppx: Heparin SC Dispo: Plan is to d/c home tomorrow if no acute findings seen on EGD/ Colonoscopy. Will discuss with ID on what antibiotics he will need upon discharge. Case seen, discussed and reviewed with Dr. Matias. Anne Medina PGY2 <Alvin Matias S - Last Filed: 02/27/18 13:02> Objective - Vital Signs/Intake and Output Vital Signs (last 24 hours): Temp Pulse Resp BP Pulse Ox 98.2 F 108 H 18 124/91 H 97 02/27/18 06:00 02/27/18 06:00 02/27/18 06:00 02/27/18 06:00 02/27/18 06:00 Intake and Output: 02/27/18 02/27/18 06:59 18:59 Intake Total 480 Balance 480 - Medications Medications: Current Medications Acetaminophen (Tylenol 325mg Tab) 650 mg PO Q4H PRN PRN Reason: Fever >100.4 F Last Admin: 02/26/18 16:24 Dose: 650 mg Apixaban (Eliquis) 5 mg PO BID [facility] PRN Reason: Protocol Last Admin: 02/24/18 10:29 Dose: 5 mg Aspirin (Aspirin Chewable) 81 mg PO DAILY [facility] Atorvastatin Calcium (Lipitor) 40 mg PO HS [facility] Last Admin: 02/26/18 21:19 Dose: 40 mg Diltiazem HCl (Cardizem Cd) 240 mg PO DAILY [facility] Last Admin: 02/27/18 10:15 Dose: 240 mg Escitalopram Oxalate (Lexapro) 10 mg PO DAILY [facility] Last Admin: 02/27/18 10:14 Dose: 10 mg Famotidine (Pepcid) 40 mg PO HS [facility] Last Admin: 02/26/18 21:19 Dose: 40 mg Gabapentin (Neurontin) 300 mg PO BID [facility] PRN Reason: Protocol Last Admin: 02/27/18 10:14 Dose: 300 mg Heparin Sodium (Porcine) (Heparin) 5,000 units SC Q8 [facility] PRN Reason: Protocol Last Admin: 02/26/18 05:13 Dose: Not Given Cefepime HCl (Maxipime 1gm) 1 gm in 100 mls @ 100 mls/hr IVPB Q12 [facility] PRN Reason: Protocol Stop: 03/19/18 22:01 Last Admin: 02/27/18 10:15 Dose: 100 mls/hr Oxycodone/Acetaminophen (Percocet 10/325 Mg Tab) 1 tab PO Q4H PRN PRN Reason: Pain, moderate (4-7) - Labs Labs: 02/26/18 18:01 02/27/18 06:20 PT 17.3 SECONDS (9.4-12.5) H 02/27/18 06:20 INR 1.49 (0.93-1.08) H 02/27/18 06:20 APTT 34.7 Seconds (25.1-36.5) 02/26/18 18:01 Assessment and Plan - Assessment and Plan (Free Text) Plan: Pt seen and examined. Agree with the note of the biomedical engineering aide. Labs and medications have been reviewed. Pt for colonoscopy today. Will plan on D/C in am if pt is stable. He will not be able to go to [facility] as he has used up all his days according to social services technician. He was given Venofer. He will need to continue with anti-coagulation for the stroke.
[2018-02-27] MEDS: diltiaZEM 240 mg/24 Hours CD Cap PO SCH (10:15)
[2018-02-27] MEDS: Cefepime 1gm in NS 100ml 1 GM/100 ML BAG IVPB SCH ×2 (10:15→21:22)
[2018-02-27] MEDS ORDERED: Propofol 10 mg/ml Inj (20 ML) ONE (14:26)
--- NOTE | 2018-02-27 14:37 | CP.PCM.PN ---
Subjective - Date & Time of Evaluation Date of Evaluation: 02/27/18 Time of Evaluation: 12:05 - Subjective Subjective: Awaiting colonoscopy, testicle feels better, no nausea, no diarrhea, no fevers. Objective - Vital Signs/Intake and Output Vital Signs (last 24 hours): Temp Pulse Resp BP Pulse Ox 98.2 F 108 H 18 124/91 H 97 02/27/18 06:00 02/27/18 06:00 02/27/18 06:00 02/27/18 06:00 02/27/18 06:00 Intake and Output: 02/27/18 02/27/18 06:59 18:59 Intake Total 480 Balance 480 - Medications Medications: Current Medications Acetaminophen (Tylenol 325mg Tab) 650 mg PO Q4H PRN PRN Reason: Fever >100.4 F Last Admin: 02/26/18 16:24 Dose: 650 mg Apixaban (Eliquis) 5 mg PO BID [facility] PRN Reason: Protocol Last Admin: 02/24/18 10:29 Dose: 5 mg Atorvastatin Calcium (Lipitor) 40 mg PO HS [facility] Last Admin: 02/26/18 21:19 Dose: 40 mg Diltiazem HCl (Cardizem Cd) 240 mg PO DAILY [facility] Last Admin: 02/27/18 10:15 Dose: 240 mg Escitalopram Oxalate (Lexapro) 10 mg PO DAILY [facility] Last Admin: 02/27/18 10:14 Dose: 10 mg Famotidine (Pepcid) 40 mg PO HS [facility] Last Admin: 02/26/18 21:19 Dose: 40 mg Gabapentin (Neurontin) 300 mg PO BID [facility] PRN Reason: Protocol Last Admin: 02/27/18 10:14 Dose: 300 mg Heparin Sodium (Porcine) (Heparin) 5,000 units SC Q8 [facility] PRN Reason: Protocol Last Admin: 02/26/18 05:13 Dose: Not Given Cefepime HCl (Maxipime 1gm) 1 gm in 100 mls @ 100 mls/hr IVPB Q12 [facility] PRN Reason: Protocol Stop: 03/19/18 22:01 Last Admin: 02/27/18 10:15 Dose: 100 mls/hr Oxycodone/Acetaminophen (Percocet 10/325 Mg Tab) 1 tab PO Q4H PRN PRN Reason: Pain, moderate (4-7) - Labs Labs: 02/26/18 18:01 02/27/18 06:20 PT 17.3 SECONDS (9.4-12.5) H 02/27/18 06:20 INR 1.49 (0.93-1.08) H 02/27/18 06:20 APTT 34.7 Seconds (25.1-36.5) 02/26/18 18:01 - Constitutional Appears: Chronically Ill - Head Exam Head Exam: NORMAL INSPECTION - ENT Exam ENT Exam: Mucous Membranes Moist - Neck Exam Neck Exam: absent: Lymphadenopathy, Meningismus - Respiratory Exam Respiratory Exam: Decreased Breath Sounds - Cardiovascular Exam Cardiovascular Exam: +S1, +S2 - GI/Abdominal Exam GI & Abdominal Exam: Soft. absent: Tenderness Assessment and Plan - Assessment and Plan (Free Text) Plan: Assessment left sided epididyimitis, clinically improving, grew E. coli from the urine renal failure, improving history of gouty arthritis history of right hand cellulitis chronic renal failure atrial fibrillation gout history of TIA history of prostate cancer Plan on Cefepime (day 5) - based on sensitivities, patient can be switched to PO Bactrim for another 5-7 days with close follow up his kidney function since he has had history of renal failure - his kidney function this time has slowly improved; explained to sister and patient
[2018-02-27] MEDS ORDERED: Sodium Chloride 0.9% 1,000 ML IV SCH (15:15)
--- NOTE | 2018-02-27 17:32 | PCM.URO ---
Urology Progress Note - Objective Lab Studies: Reviewed (no gu change) Lab Results Last 24 Hours: Laboratory Results - last 24 hr 02/26/18 02/26/18 02/26/18 18:01 18:01 18:01 WBC 9.8 RBC 3.46 L Hgb 8.9 L Hct 28.8 L MCV 83.2 MCH 25.7 MCHC 30.9 L RDW 16.8 H Plt Count 337 MPV 8.4 Gran % 66.0 Lymph % (Auto) 21.5 L Page % (Auto) 10.8 H Eos % (Auto) 1.5 Baso % (Auto) 0.2 Gran # 6.49 Lymph # (Auto) 2.1 Page # (Auto) 1.1 H Eos # (Auto) 0.2 Baso # (Auto) 0.02 PT 18.8 H INR 1.63 H APTT 34.7 Sodium 143 Potassium 3.5 L Chloride 107 Carbon Dioxide 25 Anion Gap 14 BUN 15 Creatinine 1.5 Est GFR ( Amer) 56 Est GFR (Non-Af Amer) 46 Random Glucose 142 H Calcium 8.6 Total Bilirubin 0.6 AST 29 ALT 25 Alkaline Phosphatase 113 Total Protein 6.7 Albumin 2.9 L Globulin 3.9 Albumin/Globulin Ratio 0.7 L 02/27/18 02/27/18 06:20 06:20 WBC RBC Hgb Hct MCV MCH MCHC RDW Plt Count MPV Gran % Lymph % (Auto) Page % (Auto) Eos % (Auto) Baso % (Auto) Gran # Lymph # (Auto) Page # (Auto) Eos # (Auto) Baso # (Auto) PT 17.3 H INR 1.49 H APTT Sodium 147 Potassium 3.5 L Chloride 109 H Carbon Dioxide 28 Anion Gap 14 BUN 14 Creatinine 1.3 Est GFR ( Amer) > 60 Est GFR (Non-Af Amer) 54 Random Glucose 91 Calcium 8.9 Total Bilirubin AST ALT Alkaline Phosphatase Total Protein Albumin Globulin Albumin/Globulin Ratio Intake & Output: Intake & Output 02/26/18 02/27/18 02/27/18 18:59 06:59 18:59 Intake Total 480 480 Balance 480 480 Intake: Oral 480 480 Other: # Bowel Movements 0 3 1 Vital Signs: Vital Signs - 24 hr 02/27/18 02/27/18 02/27/18 06:00 13:58 14:31 Temperature 98.2 F 98.2 F Pulse Rate 108 H 92 H Respiratory 18 16 Rate Blood Pressure 124/91 H 125/67 O2 Sat by Pulse 97 98 98 Oximetry 02/27/18 02/27/18 02/27/18 15:07 15:22 15:37 Temperature 98 F 98 F 98 F Pulse Rate 91 H 87 88 Respiratory 12 12 12 Rate Blood Pressure 76/50 L 91/59 L 119/84 O2 Sat by Pulse 97 99 99 Oximetry 02/27/18 15:50 Temperature 98.0 F Pulse Rate 85 Respiratory 20 Rate Blood Pressure 139/89 O2 Sat by Pulse 97 Oximetry
[2018-02-28] MEDS: Cefepime 1gm in NS 100ml 1 GM/100 ML BAG IVPB SCH ×2 (10:47→21:09)
[2018-02-28] MEDS: diltiaZEM 240 mg/24 Hours CD Cap PO SCH (10:49)
--- NOTE | 2018-02-28 12:11 | PN ---
DATE: 02/28/2018 SUBJECTIVE: The patient has no complaints of any chest pain. No shortness of breath. No headaches. PHYSICAL EXAMINATION: VITAL SIGNS: Temperature is 98.4, pulse of 88, blood pressure is 101/65, respirations 20. GENERAL: The patient is lying in bed, flat, comfortable. HEENT: No oral lesion. Anicteric sclerae. Moist mucosa. NECK: No JVD, adenopathy, or thyromegaly. CARDIOVASCULAR: S1 and S2, regular. No murmurs, rubs, or gallops. LUNGS: Clear to auscultation bilaterally. No wheeze, rales, or rhonchi. ABDOMEN: Bowel sounds are positive, soft, nontender and nondistended. EXTREMITIES: No cyanosis, clubbing or edema. LABORATORY DATA: White count of 9.8, hemoglobin 8.9. Creatinine is 1.3. ASSESSMENT: 1. Acute cerebrovascular accident with left-sided weakness. 2. Right epididymitis. 3. Urinary tract infection secondary to Escherichia coli. 4. Iron-deficiency anemia. 5. Chronic kidney disease stage 3a. 6. Atrial fibrillation, on Eliquis. 7. Depression. PLAN: The patient is currently comfortable. He is on heparin for DVT prophylaxis. I will discontinue the patient's heparin and start the patient on Eliquis. The patient is on Cardizem for his atrial fibrillation. He is on antibiotics of cefepime. He is getting Percocet for pain. The patient had a colonoscopy. I did speak to Dr. Koroma. No acute signs of bleeding. We will watch his hemoglobin and see if it is stable. If it is stable, the patient can be discharged to home. He is not able to go to subacute rehab because he has used his days. Alvin Matias MD
[2018-03-01] MEDS: Cefepime 1gm in NS 100ml 1 GM/100 ML BAG IVPB SCH ×2 (11:04→21:38)
[2018-03-01 11:05] LABS: HEMOGLOBIN 8.7 g/dL (14.0-18.0); MEAN CELL VOLUME 83.2 fl (80.0-105.0); MEAN CORPUSCULAR HEMOGLOBIN 25.2 pg (25.0-35.0); MEAN CORPUSCULAR HGB CONC 30.3 g/dl (31.0-37.0); MEAN PLATELET VOLUME 8.3 fl (7.0-11.0); RBC 3.45 10^6/uL (3.5-6.1); RED CELL DISTRIBUTION WIDTH 17.2 % (11.5-14.5); WHITE BLOOD COUNT 7.8 10^3/ul (4.5-11.0)
[2018-03-01] MEDS: diltiaZEM 240 mg/24 Hours CD Cap PO SCH (11:05)
--- NOTE | 2018-03-01 14:24 | PN ---
DATE: 03/01/2018 SUBJECTIVE: The patient is in bed in no acute distress, seen earlier this morning. PHYSICAL EXAMINATION VITAL SIGNS: Temperature is 98, blood pressure is 130/60, respiratory rate of 16. HEENT: Unremarkable. NECK: Supple. LUNGS: Decreased breath sounds. HEART: Normal S1 and S2. ABDOMEN: Soft, nontender. LABORATORY DATA: Reveals the patient's white count of 9.8, hemoglobin of 8.9. BUN of 14, creatinine of 1.3. Urinalysis is noted and immunology is noted. Microbiology reveals E. coli that is resistant to Cipro, sensitive to Bactrim, sensitive to ertapenem, resistant to cefazolin and sensitive to cefepime. ASSESSMENT AND PLAN: A 72-year-old male with left-sided epididymitis with resistant Escherichia coli, renal failure and day #7 of antibiotics. We had him switch to p.o. Bactrim because of the renal insufficiency. We will discuss with you, with resistant organisms, p.o. options are limited, currently on cefepime. Krishna Key MD
--- NOTE | 2018-03-02 02:26 | DS ---
HISTORY OF PRESENT ILLNESS: This is a 72-year-old male who had come into the hospital. He was found to have a CVA that was causing his left side weakness. He had evaluation by Neurology. He has been placed on aspirin. The patient is also on Eliquis for his atrial fibrillation. The patient is currently comfortable. He does not require subacute rehab because he has used most of his days. He is going to be discharged back home with his daughter. The patient also had right-sided epididymitis that was treated with IV antibiotics. He had a UTI secondary to E. coli. He had a colonoscopy done by Dr. Koroma from and he did not have any significant signs of bleeding. He was placed back on Eliquis for his anticoagulation because of the high risk of having stroke. He is currently comfortable. He has been eating well. He has no other complaints. The patient had UTI that was caused by E. coli. PHYSICAL EXAMINATION: VITAL SIGNS: Temperature is 98.4, pulse of 94, blood pressure 132/69, respirations 20, O2 saturation 98%. GENERAL: The patient is lying in bed, flat, comfortable. HEENT: No oral lesion. Anicteric sclerae. Moist mucosa. NECK: No JVD, adenopathy, or thyromegaly. CARDIOVASCULAR: S1 and S2, regular. No murmurs, rubs, or gallops. LUNGS: Clear to auscultation bilaterally. No wheeze, rales, or rhonchi. ABDOMEN: Bowel sounds are positive, soft, nontender and nondistended. EXTREMITIES: no cyanosis, clubbing or edema. ASSESSMENT: 1. Acute cerebrovascular accident with left-sided weakness. 2. Right epididymitis. 3. Urinary tract infection secondary to Escherichia coli. 4. Iron-deficiency anemia. 5. Chronic kidney disease stage IIIA. 6. Atrial fibrillation, on Eliquis. 7. Depression. PLAN: The patient is currently comfortable. He has been started back on his anticoagulation with Eliquis. He is on cefepime for antibiotics, this is sensitive. He does have a sensitive E. coli to Bactrim. The patient is on Neurontin for neuropathy. He is receiving a heart-healthy diet. CONDITION: Stable. ACTIVITIES: Increased as tolerated. Alvin Matias MD [facility] # [id number]
--- NOTE | 2018-03-02 08:00 | CP.PCM.PN ---
<Crystal Medina - Last Filed: 03/02/18 10:17> Subjective - Date & Time of Evaluation Date of Evaluation: 03/02/18 Time of Evaluation: 08:33 - Subjective Subjective: Progress Note for Anne Valentino PGY2 Patient seen and examined at bedside. There were no acute overnight events as per nursing staff. Patient reports he is feeling well today. He denies chest pain, shortness of breath, nausea/vomiting/diarrhea, fever/chills, numbness/ tingling, dysuria or hematuria. Objective - Vital Signs/Intake and Output Vital Signs (last 24 hours): Temp Pulse Resp BP Pulse Ox 98 F 95 H 18 134/68 97 03/02/18 06:00 03/02/18 06:00 03/02/18 06:00 03/02/18 06:00 03/02/18 06:00 Intake and Output: 03/02/18 03/02/18 06:59 18:59 Intake Total 480 Balance 480 - Medications Medications: Current Medications Acetaminophen (Tylenol 325mg Tab) 650 mg PO Q4H PRN PRN Reason: Fever >100.4 F Last Admin: 02/26/18 16:24 Dose: 650 mg Apixaban (Eliquis) 5 mg PO Q12 [facility] PRN Reason: Protocol Last Admin: 03/01/18 21:38 Dose: 5 mg Aspirin (Aspirin Chewable) 81 mg PO DAILY [facility] Last Admin: 03/01/18 11:05 Dose: 81 mg Atorvastatin Calcium (Lipitor) 40 mg PO HS [facility] Last Admin: 03/01/18 21:37 Dose: 40 mg Diltiazem HCl (Cardizem Cd) 240 mg PO DAILY [facility] Last Admin: 03/01/18 11:05 Dose: 240 mg Escitalopram Oxalate (Lexapro) 10 mg PO DAILY [facility] Last Admin: 03/01/18 11:06 Dose: 10 mg Famotidine (Pepcid) 40 mg PO HS [facility] Last Admin: 03/01/18 21:37 Dose: 40 mg Gabapentin (Neurontin) 300 mg PO BID [facility] PRN Reason: Protocol Last Admin: 03/01/18 18:41 Dose: 300 mg Cefepime HCl (Maxipime 1gm) 1 gm in 100 mls @ 100 mls/hr IVPB Q12 [facility] PRN Reason: Protocol Stop: 03/19/18 22:01 Last Admin: 03/01/18 21:38 Dose: 100 mls/hr Oxycodone/Acetaminophen (Percocet 10/325 Mg Tab) 1 tab PO Q4H PRN PRN Reason: Pain, moderate (4-7) - Labs Labs: 03/01/18 10:20 02/27/18 06:20 PT 17.3 SECONDS (9.4-12.5) H 02/27/18 06:20 INR 1.49 (0.93-1.08) H 02/27/18 06:20 APTT 34.7 Seconds (25.1-36.5) 02/26/18 18:01 - Constitutional Appears: No Acute Distress - Head Exam Head Exam: ATRAUMATIC, NORMAL INSPECTION, NORMOCEPHALIC - Eye Exam Eye Exam: Normal appearance, PERRL Pupil Exam: NORMAL ACCOMODATION, PERRL - ENT Exam ENT Exam: Mucous Membranes Moist - Neck Exam Neck Exam: Full ROM - Respiratory Exam Respiratory Exam: Clear to Ausculation Bilateral, NORMAL BREATHING PATTERN. absent: Rales, Rhonchi, Wheezes, Stridor - Cardiovascular Exam Cardiovascular Exam: Irregular Rhythm, +S1, +S2. absent: Gallop, Rubs, Murmur - GI/Abdominal Exam GI & Abdominal Exam: Soft, Normal Bowel Sounds. absent: Rigid, Tenderness, Mass , Rebound - Extremities Exam Extremities Exam: Normal Inspection. absent: Calf Tenderness, Pedal Edema - Neurological Exam Neurological Exam: Alert, Awake Neuro motor strength exam: Left Upper Extremity: 4, Right Upper Extremity: 5, Left Lower Extremity: 3, Right Lower Extremity: 5 - Psychiatric Exam Psychiatric exam: Normal Affect, Normal Mood - Skin Skin Exam: Dry, Warm Assessment and Plan - Assessment and Plan (Free Text) Assessment: This is a 72yo male with past medical history of gout, CKD stage IIIa, A.fib ( on Eliquis), CVA, prostate ca s/p radiation who is admitted for 1. E.Coli UTI 2 R epididymitis 3. L Leg weakness (secondary to acute on chronic CVA) 4. Anemia of chronic disease 5. Weight loss (secondary to failure to thrive from CVA) 6. A fib (rate controlled) 7. CKD stage IIIa Plan: Patient was admitted for L leg weakness secondary to acute on chronic CVA. Patient had head CT and MRI of brain were reviewed which did not show acute infarct. Carotid dopplers were 20-30% stenosis bilaterally. Echo EF was 44% and borderline LV function without evidence of thrombus. Neuro is on consult and recommended ASA, Lipitor and physical therapy which the patient is on. For his R epididymitis and multi-drug resistant UTI, patient is on Cefepime (day #5) and will need to complete a 10 day course. ID is on consult. The only PO antibiotic that can be recommended is bactrim which is contraindicated due to his CKD IIIa. Patient was evaluated by urology who states the patient may have some overflow incontinence and recommended outpatient cytoscopy. For his anemia , patient was evaluated by GI. He had a colonoscopy and EGD that did not show any evidence of acute bleeding. A 6mm polyp was removed from descending colon. Pathology is pending. His Eliquis was on hold a couple of days prior to colonoscopy which increased his risk of CVA. He was on Heparin SC and ASA at the time. Now he has been restarted on his Eliquis. His anemia remains stable after IV iron without overt signs of bleeding. Patient's medications for his a.fib and depression were continued. He remained hemodynamically stable. Patient does have a history of spinal stenosis which he is getting gabapentin as well as pain medication. We will continue GI prophylaxis. Plan is for patient to be d/c home once he has completed a 10 day course of Cefepime (~ Friday). Patient is unable to go to [facility] because he ran out of his days. Case seen, reviewed and discussed with Dr. Florencio Medina PGY2 <Alvin Matias S - Last Filed: 03/02/18 22:10> Objective - Vital Signs/Intake and Output Vital Signs (last 24 hours): Temp Pulse Resp BP Pulse Ox 98.7 F 66 18 108/58 L 99 03/02/18 14:00 03/02/18 14:00 03/02/18 14:00 03/02/18 14:00 03/02/18 14:00 Intake and Output: 03/02/18 03/03/18 18:59 06:59 Intake Total 540 Balance 540 - Medications Medications: Current Medications Acetaminophen (Tylenol 325mg Tab) 650 mg PO Q4H PRN PRN Reason: Fever >100.4 F Last Admin: 02/26/18 16:24 Dose: 650 mg Apixaban (Eliquis) 5 mg PO Q12 [facility] PRN Reason: Protocol Last Admin: 03/02/18 21:22 Dose: 5 mg Aspirin (Aspirin Chewable) 81 mg PO DAILY [facility] Last Admin: 03/02/18 09:38 Dose: 81 mg Atorvastatin Calcium (Lipitor) 40 mg PO HS [facility] Last Admin: 03/02/18 21:22 Dose: 40 mg Diltiazem HCl (Cardizem Cd) 240 mg PO DAILY [facility] Last Admin: 03/02/18 09:39 Dose: 240 mg Escitalopram Oxalate (Lexapro) 10 mg PO DAILY [facility] Last Admin: 03/02/18 09:38 Dose: 10 mg Famotidine (Pepcid) 40 mg PO HS [facility] Last Admin: 03/02/18 21:22 Dose: 40 mg Gabapentin (Neurontin) 300 mg PO BID [facility] PRN Reason: Protocol Last Admin: 03/02/18 17:13 Dose: 300 mg Cefepime HCl (Maxipime 1gm) 1 gm in 100 mls @ 100 mls/hr IVPB Q12 [facility] PRN Reason: Protocol Stop: 03/19/18 22:01 Last Admin: 03/02/18 21:23 Dose: 100 mls/hr Oxycodone/Acetaminophen (Percocet 10/325 Mg Tab) 1 tab PO Q4H PRN PRN Reason: Pain, moderate (4-7) - Labs Labs: 03/01/18 10:20 02/27/18 06:20 PT 17.3 SECONDS (9.4-12.5) H 02/27/18 06:20 INR 1.49 (0.93-1.08) H 02/27/18 06:20 APTT 34.7 Seconds (25.1-36.5) 02/26/18 18:01 Assessment and Plan - Assessment and Plan (Free Text) Plan: Pt seen and examined. Agree with above note of medical asst. Pt's labs and meds have been reviewed.He is not able to get PO meds as he has resistant organisms. He is not able to take Bactrim due to MARITA that has resolved. He will continue with IV Abx.
--- NOTE | 2018-03-02 08:47 | PQF CVATIA ---
This form is a permanent part of the medical record Clarification of your documentation is requested to better reflect the severity of illness and intensity of treatment of your patient. Indicators present: Neuro consult noted white matter changes in subcortical white matter both cerebral hemispheres and also CHRONIC right posterior temporal watershed zone infarct, possibly causing the left-sided weakness. MRI shows No definite acute or subacute brain infarction Your D/C documents ASSESSMENT: 1. Acute cerebrovascular accident with left-sided weakness. Please clarify acuity of CVA POA as there is documentation of suspicious for CVA , poss happened months ago [] Altered mental status [] Aphasia [] Dysphagia [] Dysphasia [] Facial droop/numbness [] Gait disturbance [] Hemiparesis/plegia [] Speech impairment [x] Weakness [x] Neuro Consult [x] CT/MRI Findings [] Other: [] Location in the medical record that reflects the above clinical findings: [x] Neuro consult Treatment Provided: [] PHYSICIAN'S RESPONSE Based on your medical judgment of the clinical indicators outlined above, are you treating this patient for a known or suspected: [x] Acute Cerebrovascular Accident (CVA) Please specify type i.e.; embolic, hemorrhagic, ischemic. embolic with L sided residual deficit Please specify the artery involved if known. [] Transient Ischemic Accident (TIA) [] Prolonged reversible ischemic neurological disorder [] Other, please indicate: [] [] If unable to determine, please check the box, sign and date. Present On Admission (POA) Indicator: [x] Present at the time of admission [] Not present at the time of admission [] Clinically Undetermined In responding to this query, please exercise your independent professional judgment. The fact that a question is asked does not imply that any particular answer is desired or expected. Thank you for your clarification on this documentation. If you have any questions please call:[ ][phone] * Thank you, [ ]Char Carreon RN CDS mate [employer] [facility]
[2018-03-02] MEDS: Cefepime 1gm in NS 100ml 1 GM/100 ML BAG IVPB SCH ×2 (09:38→21:23)
[2018-03-02] MEDS: diltiaZEM 240 mg/24 Hours CD Cap PO SCH (09:39)
--- NOTE | 2018-03-02 11:55 | CP.PCM.PN ---
<Roxane Gee - Last Filed: 03/02/18 16:58> Subjective - Date & Time of Evaluation Date of Evaluation: 03/02/18 Time of Evaluation: 11:49 - Subjective Subjective: pgy-[address] Koroma's service Patient seen and examined at bedside. There were no acute overnight events as per nurse. Patient reports he is feeling well today. No reports of vomiting, diarrhea, fever, chills. Last BM 2 days ago. Patient is tolerating diet. No overt bleeding Objective - Vital Signs/Intake and Output Vital Signs (last 24 hours): Temp Pulse Resp BP Pulse Ox 98 F 95 H 18 134/68 97 03/02/18 06:00 03/02/18 09:39 03/02/18 06:00 03/02/18 09:39 03/02/18 06:00 Intake and Output: 03/02/18 03/02/18 06:59 18:59 Intake Total 480 Balance 480 - Medications Medications: Current Medications Acetaminophen (Tylenol 325mg Tab) 650 mg PO Q4H PRN PRN Reason: Fever >100.4 F Last Admin: 02/26/18 16:24 Dose: 650 mg Apixaban (Eliquis) 5 mg PO Q12 [facility] PRN Reason: Protocol Last Admin: 03/02/18 09:38 Dose: 5 mg Aspirin (Aspirin Chewable) 81 mg PO DAILY [facility] Last Admin: 03/02/18 09:38 Dose: 81 mg Atorvastatin Calcium (Lipitor) 40 mg PO HS [facility] Last Admin: 03/01/18 21:37 Dose: 40 mg Diltiazem HCl (Cardizem Cd) 240 mg PO DAILY [facility] Last Admin: 03/02/18 09:39 Dose: 240 mg Escitalopram Oxalate (Lexapro) 10 mg PO DAILY [facility] Last Admin: 03/02/18 09:38 Dose: 10 mg Famotidine (Pepcid) 40 mg PO HS [facility] Last Admin: 03/01/18 21:37 Dose: 40 mg Gabapentin (Neurontin) 300 mg PO BID [facility] PRN Reason: Protocol Last Admin: 03/02/18 09:38 Dose: 300 mg Cefepime HCl (Maxipime 1gm) 1 gm in 100 mls @ 100 mls/hr IVPB Q12 [facility] PRN Reason: Protocol Stop: 03/19/18 22:01 Last Admin: 03/02/18 09:38 Dose: 100 mls/hr Oxycodone/Acetaminophen (Percocet 10/325 Mg Tab) 1 tab PO Q4H PRN PRN Reason: Pain, moderate (4-7) - Labs Labs: 03/01/18 10:20 02/27/18 06:20 PT 17.3 SECONDS (9.4-12.5) H 02/27/18 06:20 INR 1.49 (0.93-1.08) H 02/27/18 06:20 APTT 34.7 Seconds (25.1-36.5) 02/26/18 18:01 - Constitutional Appears: Well, No Acute Distress - Head Exam Head Exam: ATRAUMATIC, NORMOCEPHALIC - Eye Exam Eye Exam: EOMI, Normal appearance - ENT Exam ENT Exam: Mucous Membranes Moist - Respiratory Exam Respiratory Exam: Clear to Ausculation Bilateral, Respiratory Distress. absent : NORMAL BREATHING PATTERN - Cardiovascular Exam Cardiovascular Exam: REGULAR RHYTHM - GI/Abdominal Exam GI & Abdominal Exam: Soft, Normal Bowel Sounds. absent: Distended, Firm, Guarding, Tenderness - Neurological Exam Neurological Exam: Alert, Awake - Skin Skin Exam: Dry, Intact, Normal Color, Warm Assessment and Plan - Assessment and Plan (Free Text) Assessment: 72 yo male with past medical history of gout, CKD stage IIIa, A.fib (on Eliquis) , CVA, prostate ca s/p radiation who was brought in by daughter for difficulty ambulating, weight loss, and Epidydimitis found to have anemia. anemia h/o stroke Epidydimitis CKD stage IIIa Hx of A.fib Hx of Depression HX of prostate ca Plan: - CT abd/pelvis with PO contrast did not show any acute abnormalities or mass - colonoscopy showed 1 polyp, internal hemorrhiods - EGD showed normal stomach and duodenum - Heme following - Iron studies showed anemia of chronic disease - continue Eliquis - patient will need close outpatient monitoring - consider home monitoring of INR case reviewed and discussed with Dr. Koroma <María Elena Koroma V - Last Filed: 03/02/18 23:58> Objective - Vital Signs/Intake and Output Vital Signs (last 24 hours): Temp Pulse Resp BP Pulse Ox 98.2 F 90 16 111/65 98 03/02/18 22:36 03/02/18 22:36 03/02/18 22:36 03/02/18 22:36 03/02/18 22:36 Intake and Output: 03/02/18 03/03/18 18:59 06:59 Intake Total 540 Balance 540 - Medications Medications: Current Medications Acetaminophen (Tylenol 325mg Tab) 650 mg PO Q4H PRN PRN Reason: Fever >100.4 F Last Admin: 02/26/18 16:24 Dose: 650 mg Apixaban (Eliquis) 5 mg PO Q12 [facility] PRN Reason: Protocol Last Admin: 03/02/18 21:22 Dose: 5 mg Aspirin (Aspirin Chewable) 81 mg PO DAILY [facility] Last Admin: 03/02/18 09:38 Dose: 81 mg Atorvastatin Calcium (Lipitor) 40 mg PO HS [facility] Last Admin: 03/02/18 21:22 Dose: 40 mg Diltiazem HCl (Cardizem Cd) 240 mg PO DAILY [facility] Last Admin: 03/02/18 09:39 Dose: 240 mg Escitalopram Oxalate (Lexapro) 10 mg PO DAILY [facility] Last Admin: 03/02/18 09:38 Dose: 10 mg Famotidine (Pepcid) 40 mg PO HS [facility] Last Admin: 03/02/18 21:22 Dose: 40 mg Gabapentin (Neurontin) 300 mg PO BID [facility] PRN Reason: Protocol Last Admin: 03/02/18 17:13 Dose: 300 mg Cefepime HCl (Maxipime 1gm) 1 gm in 100 mls @ 100 mls/hr IVPB Q12 [facility] PRN Reason: Protocol Stop: 03/19/18 22:01 Last Admin: 03/02/18 21:23 Dose: 100 mls/hr Oxycodone/Acetaminophen (Percocet 10/325 Mg Tab) 1 tab PO Q4H PRN PRN Reason: Pain, moderate (4-7) - Labs Labs: 03/01/18 10:20 02/27/18 06:20 PT 17.3 SECONDS (9.4-12.5) H 02/27/18 06:20 INR 1.49 (0.93-1.08) H 02/27/18 06:20 APTT 34.7 Seconds (25.1-36.5) 02/26/18 18:01 Attending/Attestation - Attestation I have personally seen and examined this patient.: Yes I have fully participated in the care of the patient.: Yes I have reviewed all pertinent clinical information, including history, physical exam and plan: Yes Notes (Text): iraj 03/02/18 23:57
--- NOTE | 2018-03-02 18:28 | CP.PCM.PN ---
Subjective - Date & Time of Evaluation Date of Evaluation: 03/02/18 Time of Evaluation: 11:15 - Subjective Subjective: No fevers, not in distress, no nausea. Objective - Vital Signs/Intake and Output Vital Signs (last 24 hours): Temp Pulse Resp BP Pulse Ox 98 F 95 H 18 134/68 97 03/02/18 06:00 03/02/18 06:00 03/02/18 06:00 03/02/18 06:00 03/02/18 06:00 Intake and Output: 03/02/18 03/02/18 06:59 18:59 Intake Total 480 Balance 480 - Medications Medications: Current Medications Acetaminophen (Tylenol 325mg Tab) 650 mg PO Q4H PRN PRN Reason: Fever >100.4 F Last Admin: 02/26/18 16:24 Dose: 650 mg Apixaban (Eliquis) 5 mg PO Q12 [facility] PRN Reason: Protocol Last Admin: 03/01/18 21:38 Dose: 5 mg Aspirin (Aspirin Chewable) 81 mg PO DAILY [facility] Last Admin: 03/01/18 11:05 Dose: 81 mg Atorvastatin Calcium (Lipitor) 40 mg PO HS [facility] Last Admin: 03/01/18 21:37 Dose: 40 mg Diltiazem HCl (Cardizem Cd) 240 mg PO DAILY [facility] Last Admin: 03/01/18 11:05 Dose: 240 mg Escitalopram Oxalate (Lexapro) 10 mg PO DAILY [facility] Last Admin: 03/01/18 11:06 Dose: 10 mg Famotidine (Pepcid) 40 mg PO HS [facility] Last Admin: 03/01/18 21:37 Dose: 40 mg Gabapentin (Neurontin) 300 mg PO BID [facility] PRN Reason: Protocol Last Admin: 03/01/18 18:41 Dose: 300 mg Cefepime HCl (Maxipime 1gm) 1 gm in 100 mls @ 100 mls/hr IVPB Q12 [facility] PRN Reason: Protocol Stop: 03/19/18 22:01 Last Admin: 03/01/18 21:38 Dose: 100 mls/hr Oxycodone/Acetaminophen (Percocet 10/325 Mg Tab) 1 tab PO Q4H PRN PRN Reason: Pain, moderate (4-7) - Labs Labs: 03/01/18 10:20 02/27/18 06:20 PT 17.3 SECONDS (9.4-12.5) H 02/27/18 06:20 INR 1.49 (0.93-1.08) H 02/27/18 06:20 APTT 34.7 Seconds (25.1-36.5) 02/26/18 18:01 - Constitutional Appears: Chronically Ill - Head Exam Head Exam: NORMAL INSPECTION - Cardiovascular Exam Cardiovascular Exam: +S1, +S2 - GI/Abdominal Exam GI & Abdominal Exam: Soft. absent: Tenderness Assessment and Plan - Assessment and Plan (Free Text) Plan: Assessment left sided epididyimitis, clinically improving, grew E. coli from the urine renal failure, improving history of gouty arthritis history of right hand cellulitis chronic renal failure atrial fibrillation gout history of TIA history of prostate cancer Plan on Cefepime (day 8) and will continue to monitor clinically
--- NOTE | 2018-03-02 22:33 | PCM.URO ---
Urology Progress Note - Objective Lab Studies: Reviewed (gu dx: cap, gu plans : as before no changes) Intake & Output: Intake & Output 03/02/18 03/02/18 03/03/18 06:59 18:59 06:59 Intake Total 480 540 Balance 480 540 Intake: Oral 480 540 Other: # Voids Urine, Voided 2 2 # Bowel Movements 0 0 Vital Signs: Vital Signs - 24 hr 03/02/18 03/02/18 03/02/18 06:00 09:39 14:00 Temperature 98 F 98.7 F Pulse Rate 95 H 95 H 66 Respiratory 18 18 Rate Blood Pressure 134/68 134/68 108/58 L O2 Sat by Pulse 97 99 Oximetry
--- NOTE | 2018-03-03 06:42 | CP.PCM.PN ---
Subjective - Date & Time of Evaluation Date of Evaluation: 03/03/18 Time of Evaluation: 08:08 - Subjective Subjective: Progress Note for Anne Valentino PGY2 Patient seen and examined at bedside. As per nursing staff, there were no acute overnight events. Patient was up in chair yesterday and doing well. He denies chest pain, shortness of breath, nausea/vomiting/diarrhea, constipation, fever or chills. Objective - Vital Signs/Intake and Output Vital Signs (last 24 hours): Temp Pulse Resp BP Pulse Ox 98.2 F 90 16 111/65 98 03/02/18 22:36 03/02/18 22:36 03/02/18 22:36 03/02/18 22:36 03/02/18 22:36 Intake and Output: 03/02/18 03/03/18 18:59 06:59 Intake Total 540 120 Balance 540 120 - Medications Medications: Current Medications Acetaminophen (Tylenol 325mg Tab) 650 mg PO Q4H PRN PRN Reason: Fever >100.4 F Last Admin: 02/26/18 16:24 Dose: 650 mg Apixaban (Eliquis) 5 mg PO Q12 [facility] PRN Reason: Protocol Last Admin: 03/02/18 21:22 Dose: 5 mg Aspirin (Aspirin Chewable) 81 mg PO DAILY [facility] Last Admin: 03/02/18 09:38 Dose: 81 mg Atorvastatin Calcium (Lipitor) 40 mg PO HS [facility] Last Admin: 03/02/18 21:22 Dose: 40 mg Diltiazem HCl (Cardizem Cd) 240 mg PO DAILY [facility] Last Admin: 03/02/18 09:39 Dose: 240 mg Escitalopram Oxalate (Lexapro) 10 mg PO DAILY [facility] Last Admin: 03/02/18 09:38 Dose: 10 mg Famotidine (Pepcid) 40 mg PO HS [facility] Last Admin: 03/02/18 21:22 Dose: 40 mg Gabapentin (Neurontin) 300 mg PO BID [facility] PRN Reason: Protocol Last Admin: 03/02/18 17:13 Dose: 300 mg Cefepime HCl (Maxipime 1gm) 1 gm in 100 mls @ 100 mls/hr IVPB Q12 [facility] PRN Reason: Protocol Stop: 03/19/18 22:01 Last Admin: 05/21/18 21:23 Dose: 100 mls/hr Oxycodone/Acetaminophen (Percocet 10/325 Mg Tab) 1 tab PO Q4H PRN PRN Reason: Pain, moderate (4-7) - Labs Labs: 03/01/18 10:20 02/27/18 06:20 PT 17.3 SECONDS (9.4-12.5) H 02/27/18 06:20 INR 1.49 (0.93-1.08) H 02/27/18 06:20 APTT 34.7 Seconds (25.1-36.5) 02/26/18 18:01 - Constitutional Appears: No Acute Distress - Head Exam Head Exam: ATRAUMATIC, NORMAL INSPECTION, NORMOCEPHALIC - Eye Exam Eye Exam: Normal appearance, PERRL Pupil Exam: NORMAL ACCOMODATION - ENT Exam ENT Exam: Mucous Membranes Moist - Respiratory Exam Respiratory Exam: Clear to Ausculation Bilateral, NORMAL BREATHING PATTERN. absent: Rales, Rhonchi, Wheezes - Cardiovascular Exam Cardiovascular Exam: REGULAR RHYTHM, +S1, +S2. absent: Gallop, Rubs, Murmur - GI/Abdominal Exam GI & Abdominal Exam: Soft, Normal Bowel Sounds. absent: Rigid, Tenderness, Mass , Rebound - Extremities Exam Extremities Exam: absent: Calf Tenderness, Pedal Edema - Neurological Exam Neurological Exam: Alert, Awake, CN II-XII Intact Neuro motor strength exam: Left Upper Extremity: 5, Right Upper Extremity: 5, Left Lower Extremity: 3, Right Lower Extremity: 5 Additional comments: L sided facial droop - Psychiatric Exam Psychiatric exam: Normal Affect, Normal Mood - Skin Skin Exam: Dry, Warm Assessment and Plan - Assessment and Plan (Free Text) Assessment: This is a 72yo male with past medical history of gout, CKD stage IIIa, A.fib ( on Eliquis), CVA, prostate ca s/p radiation who is admitted for 1. E.Coli UTI 2 R epididymitis 3. L Leg weakness (secondary to acute on chronic CVA) 4. Anemia of chronic disease 5. Weight loss (secondary to failure to thrive from CVA) 6. A fib (rate controlled) 7. CKD stage IIIa Plan: Patient will continue IV cefepime for a total of 10 days (day #6). ID is on consult. Patient will continue rehabilitation for his CVA. Strength has been improving. Neuro is on consult. We will continue ASA, Eliquis, Lipitor and Cardizem. He his hemodynamically stable. Hgb has been stable and there are no overt signs of bleeding seen on EGD and colonoscopy. He is s/p IV iron. Pathology from colonoscopy pending. Patient will continue gabapentin and percocet for his chronic back pain. We will continue GI prophylaxis. Case seen, reviewed and discussed with Dr. Florencio Medina PGY2
[2018-03-03] MEDS: Cefepime 1gm in NS 100ml 1 GM/100 ML BAG IVPB SCH ×2 (09:56→21:27)
[2018-03-03] MEDS: diltiaZEM 240 mg/24 Hours CD Cap PO SCH (09:56)
--- NOTE | 2018-03-03 11:26 | CP.PCM.PN ---
<Roxane Gee - Last Filed: 03/04/18 07:20> Subjective - Date & Time of Evaluation Date of Evaluation: 03/03/18 Time of Evaluation: 10:00 - Subjective Subjective: PGY-[address] Koroma's service Patient seen and examined at bedside. There were no acute overnight events as per nurse, however patient has not had BM fore past 2 days. Patient reports he is feeling well today. No reports of vomiting, diarrhea, fever, chills. Last BM 2 days ago. Patient is tolerating diet. No overt bleeding Objective - Vital Signs/Intake and Output Vital Signs (last 24 hours): Temp Pulse Resp BP Pulse Ox 97.8 F 82 20 126/94 H 97 03/03/18 06:00 03/03/18 09:56 03/03/18 06:00 03/03/18 10:05 03/03/18 06:00 Intake and Output: 03/03/18 03/03/18 06:59 18:59 Intake Total 120 Balance 120 - Medications Medications: Current Medications Acetaminophen (Tylenol 325mg Tab) 650 mg PO Q4H PRN PRN Reason: Fever >100.4 F Last Admin: 02/26/18 16:24 Dose: 650 mg Apixaban (Eliquis) 5 mg PO Q12 [facility] PRN Reason: Protocol Last Admin: 03/03/18 09:55 Dose: 5 mg Aspirin (Aspirin Chewable) [address] [facility] Last Admin: 03/03/18 09:55 Dose: 81 mg Atorvastatin Calcium (Lipitor) [address] [facility] Last Admin: 03/02/18 21:22 Dose: 40 mg Diltiazem HCl (Cardizem Cd) [address] [facility] Last Admin: 03/03/18 09:56 Dose: 240 mg Escitalopram Oxalate (Lexapro) [address] [facility] Last Admin: 03/03/18 09:55 Dose: 10 mg Famotidine (Pepcid) [address] [facility] Last Admin: 03/02/18 21:22 Dose: 40 mg Gabapentin (Neurontin) 300 mg PO BID [facility] PRN Reason: Protocol Last Admin: 03/03/18 09:55 Dose: 300 mg Cefepime HCl (Maxipime 1gm) 1 gm in 100 mls @ 100 mls/hr IVPB Q12 [facility] PRN Reason: Protocol Stop: 03/19/18 22:01 Last Admin: 03/03/18 09:56 Dose: 100 mls/hr Oxycodone/Acetaminophen (Percocet 10/325 Mg Tab) 1 tab PO Q4H PRN PRN Reason: Pain, moderate (4-7) - Labs Labs: 03/01/18 10:20 02/27/18 06:20 PT 17.3 SECONDS (9.4-12.5) H 02/27/18 06:20 INR 1.49 (0.93-1.08) H 02/27/18 06:20 APTT 34.7 Seconds (25.1-36.5) 02/26/18 18:01 - Constitutional Appears: Well, No Acute Distress - Head Exam Head Exam: ATRAUMATIC, NORMAL INSPECTION, NORMOCEPHALIC - Eye Exam Eye Exam: EOMI, Normal appearance - ENT Exam ENT Exam: Mucous Membranes Moist - Respiratory Exam Respiratory Exam: Clear to Ausculation Bilateral, NORMAL BREATHING PATTERN. absent: Decreased Breath Sounds, Rales, Rhonchi, Wheezes, Respiratory Distress - Extremities Exam Extremities Exam: Normal Inspection. absent: Pedal Edema, Tenderness - Neurological Exam Neurological Exam: Alert, Awake - Skin Skin Exam: Dry, Intact, Normal Color, Warm Assessment and Plan - Assessment and Plan (Free Text) Assessment: 72 yo male with past medical history of gout, CKD stage IIIa, A.fib (on Eliquis) , CVA, prostate ca s/p radiation who was brought in by daughter for difficulty ambulating, weight loss, and Epidydimitis found to have anemia. anemia h/o stroke Epidydimitis CKD stage IIIa Hx of A.fib Hx of Depression HX of prostate ca Plan: - CT abd/pelvis with PO contrast did not show any acute abnormalities or mass - colonoscopy showed 1 polyp, internal hemorrhoids - EGD showed normal stomach and duodenum - Heme following - Iron studies showed anemia of chronic disease - s/p IV iron - continue Eliquis - patient will need close outpatient monitoring for bleeding - consider home monitoring of INR - receiving IV abx case reviewed and discussed with Dr. Koroma <María Elena Koroma V - Last Filed: 03/04/18 23:56> Objective - Vital Signs/Intake and Output Vital Signs (last 24 hours): Temp Pulse Resp BP Pulse Ox 98.0 F 95 H 18 101/66 98 03/04/18 22:00 03/04/18 22:00 03/04/18 22:00 03/04/18 22:00 03/04/18 22:00 Intake and Output: 03/04/18 03/05/18 18:59 06:59 Intake Total 360 Balance 360 - Medications Medications: Current Medications Acetaminophen (Tylenol 325mg Tab) 650 mg PO Q4H PRN PRN Reason: Fever >100.4 F Last Admin: 02/26/18 16:24 Dose: 650 mg Apixaban (Eliquis) [address] [facility] PRN Reason: Protocol Last Admin: 03/04/18 21:23 Dose: 5 mg Aspirin (Aspirin Chewable) [address] [facility] Last Admin: 03/04/18 09:52 Dose: 81 mg Atorvastatin Calcium (Lipitor) [address] [facility] Last Admin: 03/04/18 21:23 Dose: 40 mg Diltiazem HCl (Cardizem Cd) [address] [facility] Last Admin: 03/04/18 09:52 Dose: 240 mg Escitalopram Oxalate (Lexapro) [address] [facility] Last Admin: 03/04/18 09:52 Dose: 10 mg Famotidine (Pepcid) [address] [facility] Last Admin: 03/04/18 21:23 Dose: 40 mg Gabapentin (Neurontin) [address] [facility] PRN Reason: Protocol Last Admin: 03/04/18 17:16 Dose: Not Given Cefepime HCl (Maxipime 1gm) 1 gm in 100 mls @ 100 mls/hr IVPB Q12 [facility] PRN Reason: Protocol Stop: 03/19/18 22:01 Last Admin: 03/04/18 21:22 Dose: 100 mls/hr Oxycodone/Acetaminophen (Percocet 2.5/325 Mg Tab) 1 tab PO Q6H PRN PRN Reason: Pain, severe (8-10) Thiamine HCl (Vitamin B1 Tab) [address] [facility] Last Admin: 03/04/18 10:32 Dose: 100 mg Tramadol HCl (Ultram) 50 mg PO TID PRN PRN Reason: Pain, moderate (4-7) - Labs Labs: 03/03/18 19:50 03/03/18 19:50 PT 17.3 SECONDS (9.4-12.5) H 02/27/18 06:20 INR 1.49 (0.93-1.08) H 02/27/18 06:20 APTT 34.7 Seconds (25.1-36.5) 02/26/18 18:01 Attending/Attestation - Attestation I have personally seen and examined this patient.: Yes I have fully participated in the care of the patient.: Yes I have reviewed all pertinent clinical information, including history, physical exam and plan: Yes Notes (Text): This is an addendum to GI progress report dictated by the Show Horse Driver.The patient was seen and examined earlier. Medical records, lab studies, imagings were reviewed. Last 24 hours events reviewed. Agreed with the above treatment plan as outlined in [employer] 's notes the with the addition of the following 03/04/18 23:55
--- NOTE | 2018-03-03 19:06 | PN ---
DATE: 03/03/2018 NEUROLOGY FOLLOWUP CHIEF COMPLAINT: Altered mental status. SUBJECTIVE: The patient is seen and examined at the bedside. No acute events overnight. The patient has generalized weakness. He has residual weakness form his prior CVA. His MRI of the brain on 02/26/2018 showed no acute or subacute infarction. Just showed chronic infarctions identified in the left temporal and the right parietal lobes and left cerebellum. The patient is on Eliquis and baby aspirin and Lipitor for stroke prevention. He is on antibiotics for his underlying E. coli and his UTI. PAST MEDICAL HISTORY: History of gout; chronic kidney disease stage 3A, AFib, on Eliquis; prostate CA, status post radiation; history of chronic infarctions in the left temporal and right parietal and left cerebellum area. ASSESSMENT AND PLAN: Was admitted for scrotal pain. Found to have right epididymitis and Escherichia coli in his urine on antibiotics and MRI of the brain showed no acute intracranial abnormality. Just chronic infarctions in the left temporal and right parietal and left cerebellum. He is currently on Eliquis, baby aspirin of 81 and Lipitor 40 for stroke prevention. He will likely need some rehabilitation in terms of this underlying weakness. There are no overt signs on the CT or colonoscopy. He is status post IV iron infusion. We will also continue his gabapentin for chronic back pain. Avoid overuse of opiates since it can make him very generally weak. Advised banana bag and thiamine 100 mg p.o. daily for neuronal activation. We will recommend subacute rehab at this time. Thank you for this followup. Grant Oliver MD
[2018-03-03 20:03] LABS: BASO # 0.01 K/mm3 (0.0-2.0); BASO % 0.1 % (0.0-3.0); EOS # 0.2 (0.0-0.7); EOS % 1.6 % (1.5-5.0); GRAN # 7.24 (1.4-6.5); HEMOGLOBIN 8.7 g/dL (14.0-18.0); LYMPH % 18.5 % (22.0-35.0); MEAN CELL VOLUME 82.6 fl (80.0-105.0); MEAN CORPUSCULAR HEMOGLOBIN 25.6 pg (25.0-35.0); MEAN PLATELET VOLUME 8.3 fl (7.0-11.0); MONO # 1.4 (0.1-0.6); MONO % 12.8 % (1.0-6.0); RBC 3.4 10^6/uL (3.5-6.1); RED CELL DISTRIBUTION WIDTH 17.2 % (11.5-14.5); WHITE BLOOD COUNT 10.8 10^3/ul (4.5-11.0)
[2018-03-03 20:16] LABS: ALB/GLOB RATIO 0.7 (1.1-1.8); ALBUMIN 2.9 g/dL (3.0-4.8); CALCIUM 8.6 mg/dL (8.4-10.5)
--- NOTE | 2018-03-03 22:45 | PN ---
DATE: 03/03/2018 SUBJECTIVE: Patient is in bed, in no acute distress, nontoxic. PHYSICAL EXAMINATION: VITAL SIGNS: Temperature is 98, blood pressure is 108/60, respiratory rate of 16. HEENT: Unremarkable. NECK: Supple. LUNGS: Have decreased breath sounds. HEART: Normal S1, S2. ABDOMEN: Soft, nontender. LABORATORY DATA: Reveals a white count of 7.8, hemoglobin of 8. BUN of 14, creatinine of 1.3 and PSA is 0.8. Urinalysis is noted and serum immunofixation is detected. Review of orders reveals the patient is on cefepime, which requires renewal, which I will do so. IMPRESSION AND PLAN: A 72-year-old male who was seen earlier this morning in room 567, bed 1 with left-sided epididymitis, clinically improving, with Escherichia coli in the urine; renal failure, improving; history of gouty arthritis; history of right hand cellulitis; renal disease; atrial fibrillation and prostate cancer. On day #9 of cefepime. Will need 10 to 14 days of antibiotics and patient's creatinine is 1.3 as of the . We will order chemistries and CBC. Krishna Key MD
--- NOTE | 2018-03-03 23:54 | PN ---
DATE: 03/03/2018 SUBJECTIVE: The patient has no complaints of any chest pain. No shortness of breath. No headaches or dizziness. PHYSICAL EXAMINATION VITAL SIGNS: Temperature is 97.8, pulse of 82, blood pressure 126/84, respirations 20. GENERAL: The patient is lying in bed, flat, comfortable. HEENT: No oral lesion. Anicteric sclerae. Moist mucosa. NECK: No JVD, adenopathy, or thyromegaly. CARDIOVASCULAR: S1 and S2, regular. No murmurs, rubs, or gallops. LUNGS: Clear to auscultation bilaterally. No wheeze, rales, or rhonchi. ABDOMEN: Bowel sounds are positive, soft, nontender and nondistended. EXTREMITIES: No cyanosis, clubbing or edema. NEUROLOGICAL: In the left there is 4/5 power. ASSESSMENT: 1. Urinary tract infection secondary to Escherichia coli. 2. Right epididymitis. 3. Left leg weakness. 4. Anemia of chronic disease. 5. Atrial fibrillation, controlled. 6. Chronic kidney disease, stage IIIA. PLAN: The patient is currently comfortable. He is continuing with IV antibiotics. He is not able to take oral antibiotics because of resistant organisms and he is sensitive to Bactrim, but this may cause kidney injury. The patient is currently on cefepime for antibiotics. He is on Eliquis for his atrial fibrillation. He is on Lexapro. I did see the patient and go over the case with the resident. I did review the note from the resident as well, and I do agree with this. Alvin Matias MD
[2018-03-04] MEDS ORDERED: Potassium Chloride 20 mEq ER Tab PO ONE (06:43)
[2018-03-04] MEDS ORDERED: Oxycodone/Acetaminophen 5/325 mg Tab PO PRN (07:53)
--- NOTE | 2018-03-04 08:11 | CP.PCM.PN ---
<Crystal Medina - Last Filed: 03/04/18 09:53> Subjective - Date & Time of Evaluation Date of Evaluation: 03/04/18 Time of Evaluation: 07:00 - Subjective Subjective: Progress Note for Anne Valentino PGY2 Patient seen and examined at bedside. There were no acute overnight events as per nursing staff. According to the nurse, patient gets lethargic after pain medication. Otherwise, patient is doing well. He denies chest pain, shortness of breath, dysuria, hematuria, numbness/tingling, fever or chills. Objective - Vital Signs/Intake and Output Vital Signs (last 24 hours): Temp Pulse Resp BP Pulse Ox 98 F 87 18 98/54 L 97 03/04/18 06:00 03/04/18 06:00 03/04/18 06:00 03/04/18 06:00 03/04/18 06:00 Intake and Output: 03/04/18 03/04/18 06:59 18:59 Intake Total 240 Balance 240 - Medications Medications: Current Medications Acetaminophen (Tylenol 325mg Tab) 650 mg PO Q4H PRN PRN Reason: Fever >100.4 F Last Admin: 02/26/18 16:24 Dose: 650 mg Apixaban (Eliquis) 5 mg PO Q12 [facility] PRN Reason: Protocol Last Admin: 03/03/18 21:26 Dose: 5 mg Aspirin (Aspirin Chewable) 81 mg PO DAILY [facility] Last Admin: 03/03/18 09:55 Dose: 81 mg Atorvastatin Calcium (Lipitor) 40 mg PO HS [facility] Last Admin: 03/03/18 21:27 Dose: 40 mg Diltiazem HCl (Cardizem Cd) 240 mg PO DAILY [facility] Last Admin: 03/03/18 09:56 Dose: 240 mg Escitalopram Oxalate (Lexapro) 10 mg PO DAILY [facility] Last Admin: 03/03/18 09:55 Dose: 10 mg Famotidine (Pepcid) 40 mg PO HS [facility] Last Admin: 03/03/18 21:27 Dose: 40 mg Gabapentin (Neurontin) 300 mg PO BID [facility] PRN Reason: Protocol Last Admin: 03/03/18 17:40 Dose: 300 mg Cefepime HCl (Maxipime 1gm) 1 gm in 100 mls @ 100 mls/hr IVPB Q12 [facility] PRN Reason: Protocol Stop: 03/19/18 22:01 Last Admin: 03/03/18 21:27 Dose: 100 mls/hr Oxycodone/Acetaminophen (Percocet 5/325 Mg Tab) 1 tab PO Q6H PRN PRN Reason: Pain, severe (8-10) Stop: 03/07/18 07:54 Tramadol HCl (Ultram) 50 mg PO TID PRN PRN Reason: Pain, moderate (4-7) - Labs Labs: 03/03/18 19:50 03/03/18 19:50 PT 17.3 SECONDS (9.4-12.5) H 02/27/18 06:20 INR 1.49 (0.93-1.08) H 02/27/18 06:20 APTT 34.7 Seconds (25.1-36.5) 02/26/18 18:01 - Head Exam Head Exam: ATRAUMATIC, NORMAL INSPECTION, NORMOCEPHALIC - Eye Exam Eye Exam: Normal appearance, PERRL Pupil Exam: NORMAL ACCOMODATION, PERRL - ENT Exam ENT Exam: Mucous Membranes Moist - Neck Exam Neck Exam: Full ROM - Respiratory Exam Respiratory Exam: Clear to Ausculation Bilateral, NORMAL BREATHING PATTERN. absent: Rales, Rhonchi, Wheezes - Cardiovascular Exam Cardiovascular Exam: REGULAR RHYTHM, +S1, +S2. absent: Gallop, Rubs, Murmur - GI/Abdominal Exam GI & Abdominal Exam: Soft, Normal Bowel Sounds. absent: Tenderness, Mass, Rebound - Extremities Exam Extremities Exam: Normal Inspection. absent: Calf Tenderness, Pedal Edema - Neurological Exam Neurological Exam: Alert, Awake, CN II-XII Intact Neuro motor strength exam: Left Upper Extremity: 5, Right Upper Extremity: 5, Left Lower Extremity: 3, Right Lower Extremity: 5 - Psychiatric Exam Psychiatric exam: Normal Affect, Normal Mood - Skin Skin Exam: Dry, Warm Assessment and Plan - Assessment and Plan (Free Text) Assessment: This is a 72yo male with past medical history of gout, CKD stage IIIa, A.fib ( on Eliquis), CVA, prostate ca s/p radiation who is admitted for 1. E.Coli UTI 2. R epididymitis (improved) 3. L Leg weakness (secondary to acute on chronic CVA) 4. Anemia of chronic disease 5. Weight loss (secondary to failure to thrive from CVA) 6. A fib (rate controlled) 7. CKD stage IIIa (stable) Plan: We will decrease pain medication and frequency. Continue physical therapy and gabapentin. Neurology is on consult. Will start patient on PO thiamine. Continue ASA, Cardizem, Lipitor and Eliquis. Hgb has been stable without overt signs of bleeding. GI is on consult. Patient is on Cefepime day #7 out of 10. Continue GI prophylaxis. Anticipated d/c date is on Friday. Discussed d/c plan with daughter who agrees with plan. Patient cannot go to [facility] because he ran out of his days. Case seen, reviewed and discussed with Dr. Florencio Medina PGY2 <Alvin Matias S - Last Filed: 03/04/18 21:24> Objective - Vital Signs/Intake and Output Vital Signs (last 24 hours): Temp Pulse Resp BP Pulse Ox 99.4 F 93 H 18 108/73 94 L 03/04/18 14:00 03/04/18 14:00 03/04/18 14:00 03/04/18 14:00 03/04/18 14:00 Intake and Output: 03/04/18 03/05/18 18:59 06:59 Intake Total 360 Balance 360 - Medications Medications: Current Medications Acetaminophen (Tylenol 325mg Tab) 650 mg PO Q4H PRN PRN Reason: Fever >100.4 F Last Admin: 02/26/18 16:24 Dose: 650 mg Apixaban (Eliquis) 5 mg PO Q12 [facility] PRN Reason: Protocol Last Admin: 03/04/18 09:52 Dose: 5 mg Aspirin (Aspirin Chewable) 81 mg PO DAILY [facility] Last Admin: 03/04/18 09:52 Dose: 81 mg Atorvastatin Calcium (Lipitor) 40 mg PO HS [facility] Last Admin: 03/03/18 21:27 Dose: 40 mg Diltiazem HCl (Cardizem Cd) 240 mg PO DAILY [facility] Last Admin: 03/04/18 09:52 Dose: 240 mg Escitalopram Oxalate (Lexapro) 10 mg PO DAILY [facility] Last Admin: 03/04/18 09:52 Dose: 10 mg Famotidine (Pepcid) 40 mg PO HS [facility] Last Admin: 05/22/18 21:27 Dose: 40 mg Gabapentin (Neurontin) 300 mg PO BID [facility] PRN Reason: Protocol Last Admin: 03/04/18 17:16 Dose: Not Given Cefepime HCl (Maxipime 1gm) 1 gm in 100 mls @ 100 mls/hr IVPB Q12 [facility] PRN Reason: Protocol Stop: 03/19/18 22:01 Last Admin: 03/04/18 09:52 Dose: 100 mls/hr Oxycodone/Acetaminophen (Percocet 2.5/325 Mg Tab) 1 tab PO Q6H PRN PRN Reason: Pain, severe (8-10) Thiamine HCl (Vitamin B1 Tab) 100 mg PO DAILY [facility] Last Admin: 03/04/18 10:32 Dose: 100 mg Tramadol HCl (Ultram) 50 mg PO TID PRN PRN Reason: Pain, moderate (4-7) - Labs Labs: 03/03/18 19:50 03/03/18 19:50 PT 17.3 SECONDS (9.4-12.5) H 02/27/18 06:20 INR 1.49 (0.93-1.08) H 02/27/18 06:20 APTT 34.7 Seconds (25.1-36.5) 02/26/18 18:01 Assessment and Plan - Assessment and Plan (Free Text) Plan: Pt seen and examined. I have reviewed the note of the medical review coordinator and agree with it. I have discussed the assessment and plan with the resident. I have reviewed the patient's labs and medications. Pt is continuing with Abx. 7/ 10 days. No pain. Eating well.
--- NOTE | 2018-03-04 09:41 | PCM.URO ---
Urology Progress Note - Objective Lab Studies: Reviewed (no gu changes) Lab Results Last 24 Hours: Laboratory Results - last 24 hr 03/03/18 03/03/18 19:50 19:50 WBC 10.8 D RBC 3.40 L Hgb 8.7 L Hct 28.1 L MCV 82.6 MCH 25.6 MCHC 31.0 RDW 17.2 H Plt Count 299 MPV 8.3 Gran % 67.0 Lymph % (Auto) 18.5 L Guthrie % (Auto) 12.8 H Eos % (Auto) 1.6 Baso % (Auto) 0.1 Gran # 7.24 H Lymph # (Auto) 2.0 Guthrie # (Auto) 1.4 H Eos # (Auto) 0.2 Baso # (Auto) 0.01 Sodium 137 Potassium 3.5 L Chloride 100 Carbon Dioxide 28 Anion Gap 12 BUN 20 Creatinine 1.5 Est GFR ( Amer) 56 Est GFR (Non-Af Amer) 46 Random Glucose 143 H Calcium 8.6 Total Bilirubin 0.5 AST 42 ALT 37 Alkaline Phosphatase 101 Total Protein 6.9 Albumin 2.9 L Globulin 4.0 Albumin/Globulin Ratio 0.7 L Intake & Output: Intake & Output 03/03/18 03/04/18 03/04/18 18:59 06:59 18:59 Intake Total 360 240 Balance 360 240 Intake: Oral 360 240 Other: # Voids Urine, Voided 2 # Bowel Movements 0 0 Vital Signs: Vital Signs - 24 hr 03/03/18 03/03/18 03/03/18 09:56 10:05 14:00 Temperature 99.6 F Pulse Rate 82 97 H Respiratory 18 Rate Blood Pressure 126/84 126/94 H 108/66 O2 Sat by Pulse 97 Oximetry 03/04/18 06:00 Temperature 98 F Pulse Rate 87 Respiratory 18 Rate Blood Pressure 98/54 L O2 Sat by Pulse 97 Oximetry
[2018-03-04] MEDS ORDERED: Oxycodone/Acetaminophen 2.5/325 mg Tab PO PRN (09:52)
[2018-03-04] MEDS: Cefepime 1gm in NS 100ml 1 GM/100 ML BAG IVPB SCH ×2 (09:52→21:22)
[2018-03-04] MEDS: diltiaZEM 240 mg/24 Hours CD Cap PO SCH (09:52)
--- NOTE | 2018-03-04 10:12 | CP.PCM.PN ---
<MarlenRoxane serna - Last Filed: 03/04/18 15:39> Subjective - Date & Time of Evaluation Date of Evaluation: 03/04/18 Time of Evaluation: 09:00 - Subjective Subjective: PGY-[address] Koroma's service Patient seen and examined at bedside. There were no acute overnight events as per nurse. Patient reports he is feeling well today. No reports of vomiting, diarrhea, fever, chills. Patient is tolerating diet. No overt bleeding Objective - Vital Signs/Intake and Output Vital Signs (last 24 hours): Temp Pulse Resp BP Pulse Ox 98 F 88 18 108/78 97 03/04/18 06:00 03/04/18 09:52 03/04/18 06:00 03/04/18 09:52 03/04/18 06:00 Intake and Output: 03/04/18 03/04/18 06:59 18:59 Intake Total 240 Balance 240 - Medications Medications: Current Medications Acetaminophen (Tylenol 325mg Tab) 650 mg PO Q4H PRN PRN Reason: Fever >100.4 F Last Admin: 02/26/18 16:24 Dose: 650 mg Apixaban (Eliquis) 5 mg PO Q12 [facility] PRN Reason: Protocol Last Admin: 03/04/18 09:52 Dose: 5 mg Aspirin (Aspirin Chewable) 81 mg PO DAILY [facility] Last Admin: 03/04/18 09:52 Dose: 81 mg Atorvastatin Calcium (Lipitor) 40 mg PO HS [facility] Last Admin: 03/03/18 21:27 Dose: 40 mg Diltiazem HCl (Cardizem Cd) 240 mg PO DAILY [facility] Last Admin: 03/04/18 09:52 Dose: 240 mg Escitalopram Oxalate (Lexapro) 10 mg PO DAILY [facility] Last Admin: 03/04/18 09:52 Dose: 10 mg Famotidine (Pepcid) 40 mg PO HS [facility] Last Admin: 03/03/18 21:27 Dose: 40 mg Gabapentin (Neurontin) 300 mg PO BID [facility] PRN Reason: Protocol Last Admin: 03/04/18 09:52 Dose: 300 mg Cefepime HCl (Maxipime 1gm) 1 gm in 100 mls @ 100 mls/hr IVPB Q12 [facility] PRN Reason: Protocol Stop: 03/19/18 22:01 Last Admin: 03/04/18 09:52 Dose: 100 mls/hr Oxycodone/Acetaminophen (Percocet 2.5/325 Mg Tab) 1 tab PO Q6H PRN PRN Reason: Pain, severe (8-10) Thiamine HCl (Vitamin B1 Tab) 100 mg PO DAILY [facility] Tramadol HCl (Ultram) 50 mg PO TID PRN PRN Reason: Pain, moderate (4-7) - Labs Labs: 03/03/18 19:50 03/03/18 19:50 PT 17.3 SECONDS (9.4-12.5) H 02/27/18 06:20 INR 1.49 (0.93-1.08) H 02/27/18 06:20 APTT 34.7 Seconds (25.1-36.5) 02/26/18 18:01 - Constitutional Appears: No Acute Distress - Head Exam Head Exam: ATRAUMATIC, NORMAL INSPECTION, NORMOCEPHALIC - Eye Exam Eye Exam: EOMI, Normal appearance - ENT Exam ENT Exam: Mucous Membranes Moist - Respiratory Exam Respiratory Exam: NORMAL BREATHING PATTERN. absent: Respiratory Distress - GI/Abdominal Exam GI & Abdominal Exam: Soft. absent: Distended, Firm, Guarding, Rigid, Tenderness - Extremities Exam Extremities Exam: Normal Inspection. absent: Pedal Edema - Neurological Exam Neurological Exam: Alert, Awake - Skin Skin Exam: Dry, Intact, Normal Color, Warm Assessment and Plan - Assessment and Plan (Free Text) Assessment: 72 yo male with past medical history of gout, CKD stage IIIa, A.fib (on Eliquis) , CVA, prostate ca s/p radiation who was brought in by daughter for difficulty ambulating, weight loss, and Epidydimitis found to have anemia. anemia h/o stroke Epidydimitis CKD stage IIIa Hx of A.fib Hx of Depression HX of prostate ca Plan: - CT abd/pelvis with PO contrast did not show any acute abnormalities or mass - colonoscopy showed 1 polyp, internal hemorrhoids - EGD showed normal stomach and duodenum - H&H stable, continue monitoring for overt bleeding - Iron studies showed anemia of chronic disease - s/p IV iron - continue Eliquis - patient will need close outpatient monitoring for bleeding - consider home monitoring of INR - receiving IV abx case reviewed and discussed with Dr. Koroma <María Elena Koroma V - Last Filed: 03/04/18 23:36> Objective - Vital Signs/Intake and Output Vital Signs (last 24 hours): Temp Pulse Resp BP Pulse Ox 98.0 F 95 H 18 101/66 98 03/04/18 22:00 03/04/18 22:00 03/04/18 22:00 03/04/18 22:00 03/04/18 22:00 Intake and Output: 03/04/18 03/05/18 18:59 06:59 Intake Total 360 Balance 360 - Medications Medications: Current Medications Acetaminophen (Tylenol 325mg Tab) 650 mg PO Q4H PRN PRN Reason: Fever >100.4 F Last Admin: 02/26/18 16:24 Dose: 650 mg Apixaban (Eliquis) 5 mg PO Q12 [facility] PRN Reason: Protocol Last Admin: 03/04/18 21:23 Dose: 5 mg Aspirin (Aspirin Chewable) 81 mg PO DAILY [facility] Last Admin: 03/04/18 09:52 Dose: 81 mg Atorvastatin Calcium (Lipitor) 40 mg PO HS [facility] Last Admin: 03/04/18 21:23 Dose: 40 mg Diltiazem HCl (Cardizem Cd) 240 mg PO DAILY [facility] Last Admin: 03/04/18 09:52 Dose: 240 mg Escitalopram Oxalate (Lexapro) 10 mg PO DAILY [facility] Last Admin: 03/04/18 09:52 Dose: 10 mg Famotidine (Pepcid) 40 mg PO HS [facility] Last Admin: 03/04/18 21:23 Dose: 40 mg Gabapentin (Neurontin) 300 mg PO BID [facility] PRN Reason: Protocol Last Admin: 03/04/18 17:16 Dose: Not Given Cefepime HCl (Maxipime 1gm) 1 gm in 100 mls @ 100 mls/hr IVPB Q12 [facility] PRN Reason: Protocol Stop: 03/19/18 22:01 Last Admin: 03/04/18 21:22 Dose: 100 mls/hr Oxycodone/Acetaminophen (Percocet 2.5/325 Mg Tab) 1 tab PO Q6H PRN PRN Reason: Pain, severe (8-10) Thiamine HCl (Vitamin B1 Tab) 100 mg PO DAILY [facility] Last Admin: 03/04/18 10:32 Dose: 100 mg Tramadol HCl (Ultram) 50 mg PO TID PRN PRN Reason: Pain, moderate (4-7) - Labs Labs: 03/03/18 19:50 03/03/18 19:50 PT 17.3 SECONDS (9.4-12.5) H 02/27/18 06:20 INR 1.49 (0.93-1.08) H 02/27/18 06:20 APTT 34.7 Seconds (25.1-36.5) 02/26/18 18:01 Attending/Attestation - Attestation I have personally seen and examined this patient.: Yes I have fully participated in the care of the patient.: Yes I have reviewed all pertinent clinical information, including history, physical exam and plan: Yes Notes (Text): This is an addendum to GI progress report dictated by the Journal Entry Audit Clerk.The patient was seen and examined earlier. Medical records, lab studies, imagings were reviewed. Last 24 hours events reviewed. Agreed with the above treatment plan as outlined in Journal Entry Audit Clerk 's notes the with the addition of the following 03/04/18 23:35
--- NOTE | 2018-03-04 14:37 | PN ---
DATE: 03/04/2018 SUBJECTIVE: The patient is in bed, in no acute distress. PHYSICAL EXAMINATION: VITAL SIGNS: Temperature is 98, blood pressure is 100/50, respiratory rate 18. HEENT: Unremarkable. NECK: Supple. LUNGS: Decreased breath sounds. HEART: Normal S1 and S2. ABDOMEN: Soft, nontender. LABORATORY EXAMINATION: Reveals a white count of 10,000. Chemistries are noted. Microbiology is reviewed. Review of orders reveals the patient to be on cefepime. ASSESSMENT AND PLAN: A 72-year-old male who was seen earlier this morning. He states he feels much better. The patient with left-sided epididymitis with Escherichia coli, renal disease, history of gouty arthritis. Today is day #10 of cefepime, will complete 10 to 14 days. The patient tolerated the antibiotics well. Krishna Key MD
--- NOTE | 2018-03-05 07:17 | CP.PCM.PN ---
<Crystal Medina - Last Filed: 03/05/18 07:38> Subjective - Date & Time of Evaluation Date of Evaluation: 03/05/18 Time of Evaluation: 07:39 - Subjective Subjective: Progress Note for Anne Valentino PGY2 Patient seen and examined at bedside. As per nursing staff there were no acute overnight events. I spoke with the night nurse who reports patient has been having some hypoactive delirium. Patient reports feeling well, but is A&O to person not place or time. Baseline is A&O to person and place. He denies chest pain, shortness of breath, nausea/vomiting/diarrhea, numbness/tingling, fever or chills. Objective - Vital Signs/Intake and Output Vital Signs (last 24 hours): Temp Pulse Resp BP Pulse Ox 98.0 F 95 H 18 101/66 98 03/04/18 22:00 03/04/18 22:00 03/04/18 22:00 03/04/18 22:00 03/04/18 22:00 Intake and Output: 03/05/18 03/05/18 06:59 18:59 Intake Total 120 Balance 120 - Medications Medications: Current Medications Acetaminophen (Tylenol 325mg Tab) 650 mg PO Q4H PRN PRN Reason: Fever >100.4 F Last Admin: 02/26/18 16:24 Dose: 650 mg Apixaban (Eliquis) 5 mg PO Q12 [facility] PRN Reason: Protocol Last Admin: 03/04/18 21:23 Dose: 5 mg Aspirin (Aspirin Chewable) 81 mg PO DAILY [facility] Last Admin: 03/04/18 09:52 Dose: 81 mg Atorvastatin Calcium (Lipitor) 40 mg PO HS [facility] Last Admin: 03/04/18 21:23 Dose: 40 mg Diltiazem HCl (Cardizem Cd) 240 mg PO DAILY [facility] Last Admin: 03/04/18 09:52 Dose: 240 mg Escitalopram Oxalate (Lexapro) 10 mg PO DAILY [facility] Last Admin: 03/04/18 09:52 Dose: 10 mg Famotidine (Pepcid) 40 mg PO HS [facility] Last Admin: 03/04/18 21:23 Dose: 40 mg Gabapentin (Neurontin) 300 mg PO BID [facility] PRN Reason: Protocol Last Admin: 03/04/18 17:16 Dose: Not Given Cefepime HCl (Maxipime 1gm) 1 gm in 100 mls @ 100 mls/hr IVPB Q12 [facility] PRN Reason: Protocol Stop: 03/19/18 22:01 Last Admin: 03/04/18 21:22 Dose: 100 mls/hr Oxycodone/Acetaminophen (Percocet 2.5/325 Mg Tab) 1 tab PO Q6H PRN PRN Reason: Pain, severe (8-10) Thiamine HCl (Vitamin B1 Tab) 100 mg PO DAILY [facility] Last Admin: 03/04/18 10:32 Dose: 100 mg Tramadol HCl (Ultram) 50 mg PO TID PRN PRN Reason: Pain, moderate (4-7) - Labs Labs: 03/03/18 19:50 03/03/18 19:50 PT 17.3 SECONDS (9.4-12.5) H 02/27/18 06:20 INR 1.49 (0.93-1.08) H 02/27/18 06:20 APTT 34.7 Seconds (25.1-36.5) 02/26/18 18:01 - Constitutional Appears: No Acute Distress - Head Exam Head Exam: ATRAUMATIC, NORMAL INSPECTION, NORMOCEPHALIC - Eye Exam Eye Exam: Normal appearance, PERRL Pupil Exam: NORMAL ACCOMODATION - ENT Exam ENT Exam: Mucous Membranes Moist - Respiratory Exam Respiratory Exam: Clear to Ausculation Bilateral, NORMAL BREATHING PATTERN. absent: Rales, Rhonchi, Wheezes - Cardiovascular Exam Cardiovascular Exam: REGULAR RHYTHM, +S1, +S2. absent: Gallop, Rubs, Murmur - GI/Abdominal Exam GI & Abdominal Exam: Soft, Normal Bowel Sounds. absent: Rigid, Tenderness, Mass , Rebound - Extremities Exam Extremities Exam: Normal Inspection. absent: Calf Tenderness, Pedal Edema - Neurological Exam Neurological Exam: Alert, Awake, CN II-XII Intact. absent: Oriented x3 (A&O x 1 ) Neuro motor strength exam: Left Upper Extremity: 5, Right Upper Extremity: 5, Left Lower Extremity: 3, Right Lower Extremity: 5 - Psychiatric Exam Psychiatric exam: Normal Affect, Normal Mood - Skin Skin Exam: Dry, Warm Assessment and Plan - Assessment and Plan (Free Text) Assessment: This is a 72yo male with past medical history of gout, CKD stage IIIa, A.fib ( on Eliquis), CVA, prostate ca s/p radiation who is admitted for 1. Delirium (hypoactive) 2. E.Coli UTI (improved) 3. R epididymitis (improved) 4. L Leg weakness (secondary to acute on chronic CVA) 5. Anemia of chronic disease 6. Weight loss (secondary to failure to thrive from CVA) 7. A fib (rate controlled) 8. CKD stage IIIa (stable) Plan: Recommend patient out of bed to chair. He will need education and re- orientation for his delirium. It is recommended patient continue physical therapy as well as gabapentin, thiamine, and pain control. Neurology is on consult and recommendations are appreciated. Patient is on Cefepime day #8 of 10. We will continue GI and DVT prophylaxis. Reg will continue ASA, Eliquis, Lipitor, and Cardizem. The anticipated discharge date is on Friday. Discussed d/c plan with daughter who agrees with plan. Patient cannot go to rehab because he ran out of his days. Case seen, reviewed and discussed with Dr. Florencio Medina PGY2 <Alvin Matias S - Last Filed: 03/05/18 15:47> Objective - Vital Signs/Intake and Output Vital Signs (last 24 hours): Temp Pulse Resp BP Pulse Ox 98.6 F 88 18 104/61 98 03/05/18 14:00 03/05/18 14:00 03/05/18 14:00 03/05/18 14:00 03/05/18 14:00 Intake and Output: 03/05/18 03/05/18 06:59 18:59 Intake Total 120 480 Balance 120 480 - Medications Medications: Current Medications Acetaminophen (Tylenol 325mg Tab) 650 mg PO Q4H PRN PRN Reason: Fever >100.4 F Last Admin: 02/26/18 16:24 Dose: 650 mg Apixaban (Eliquis) 5 mg PO Q12 [facility] PRN Reason: Protocol Last Admin: 03/05/18 10:02 Dose: 5 mg Aspirin (Aspirin Chewable) 81 mg PO DAILY [facility] Last Admin: 03/05/18 10:02 Dose: 81 mg Atorvastatin Calcium (Lipitor) 40 mg PO HS [facility] Last Admin: 03/04/18 21:23 Dose: 40 mg Diltiazem HCl (Cardizem Cd) 240 mg PO DAILY [facility] Last Admin: 03/05/18 10:02 Dose: 240 mg Escitalopram Oxalate (Lexapro) 10 mg PO DAILY [facility] Last Admin: 03/05/18 10:01 Dose: 10 mg Famotidine (Pepcid) 40 mg PO HS [facility] Last Admin: 03/04/18 21:23 Dose: 40 mg Gabapentin (Neurontin) 300 mg PO BID [facility] PRN Reason: Protocol Last Admin: 03/05/18 10:02 Dose: 300 mg Cefepime HCl (Maxipime 1gm) 1 gm in 100 mls @ 100 mls/hr IVPB Q12 [facility] PRN Reason: Protocol Stop: 03/19/18 22:01 Last Admin: 03/05/18 10:02 Dose: 100 mls/hr Oxycodone/Acetaminophen (Percocet 2.5/325 Mg Tab) 1 tab PO Q6H PRN PRN Reason: Pain, severe (8-10) Thiamine HCl (Vitamin B1 Tab) 100 mg PO DAILY [facility] Last Admin: 03/05/18 10:02 Dose: 100 mg - Labs Labs: 03/03/18 19:50 03/03/18 19:50 PT 17.3 SECONDS (9.4-12.5) H 02/27/18 06:20 INR 1.49 (0.93-1.08) H 02/27/18 06:20 APTT 34.7 Seconds (25.1-36.5) 02/26/18 18:01 Assessment and Plan - Assessment and Plan (Free Text) Plan: Pt seen and examined. I have reviewed the note of the biomedical service engineer and agree with it. I have discussed the assessment and plan with the resident. I have reviewed the patient's labs and medications. He is continuing with his Abx. Daughter is aware that the pt will be going home on Friday. No pain.
[2018-03-05] MEDS: Cefepime 1gm in NS 100ml 1 GM/100 ML BAG IVPB SCH ×2 (10:02→21:20)
[2018-03-05] MEDS: diltiaZEM 240 mg/24 Hours CD Cap PO SCH (10:02)
--- NOTE | 2018-03-05 11:26 | CP.PCM.PN ---
<Analisa Spears - Last Filed: 03/05/18 11:24> Subjective - Date & Time of Evaluation Date of Evaluation: 03/05/18 Time of Evaluation: 10:45 - Subjective Subjective: S&E at bedside, family at side, reported to not have appetite past 2 days, patient denies, N/V abdominal pain or dysphagia. No acute overnight events as per nursing. No reports of GI bleeding. Objective - Vital Signs/Intake and Output Vital Signs (last 24 hours): Temp Pulse Resp BP Pulse Ox 98.1 F 95 H 20 124/76 99 03/05/18 00:32 03/05/18 00:32 03/05/18 00:32 03/05/18 10:02 03/05/18 00:32 Intake and Output: 03/05/18 03/05/18 06:59 18:59 Intake Total 120 Balance 120 - Medications Medications: Current Medications Acetaminophen (Tylenol 325mg Tab) 650 mg PO Q4H PRN PRN Reason: Fever >100.4 F Last Admin: 02/26/18 16:24 Dose: 650 mg Apixaban (Eliquis) 5 mg PO Q12 [facility] PRN Reason: Protocol Last Admin: 03/05/18 10:02 Dose: 5 mg Aspirin (Aspirin Chewable) 81 mg PO DAILY [facility] Last Admin: 03/05/18 10:02 Dose: 81 mg Atorvastatin Calcium (Lipitor) 40 mg PO HS [facility] Last Admin: 03/04/18 21:23 Dose: 40 mg Diltiazem HCl (Cardizem Cd) 240 mg PO DAILY [facility] Last Admin: 03/05/18 10:02 Dose: 240 mg Escitalopram Oxalate (Lexapro) 10 mg PO DAILY [facility] Last Admin: 03/05/18 10:01 Dose: 10 mg Famotidine (Pepcid) 40 mg PO HS [facility] Last Admin: 03/04/18 21:23 Dose: 40 mg Gabapentin (Neurontin) 300 mg PO BID [facility] PRN Reason: Protocol Last Admin: 03/05/18 10:02 Dose: 300 mg Cefepime HCl (Maxipime 1gm) 1 gm in 100 mls @ 100 mls/hr IVPB Q12 [facility] PRN Reason: Protocol Stop: 03/19/18 22:01 Last Admin: 03/05/18 10:02 Dose: 100 mls/hr Oxycodone/Acetaminophen (Percocet 2.5/325 Mg Tab) 1 tab PO Q6H PRN PRN Reason: Pain, severe (8-10) Thiamine HCl (Vitamin B1 Tab) 100 mg PO DAILY [facility] Last Admin: 03/05/18 10:02 Dose: 100 mg - Labs Labs: 03/03/18 19:50 03/03/18 19:50 PT 17.3 SECONDS (9.4-12.5) H 02/27/18 06:20 INR 1.49 (0.93-1.08) H 02/27/18 06:20 APTT 34.7 Seconds (25.1-36.5) 02/26/18 18:01 - Constitutional Appears: No Acute Distress - Head Exam Head Exam: NORMOCEPHALIC - Eye Exam Eye Exam: Normal appearance. absent: Scleral icterus - ENT Exam ENT Exam: Mucous Membranes Moist - Neck Exam Neck Exam: Normal Inspection - Respiratory Exam Respiratory Exam: NORMAL BREATHING PATTERN. absent: Respiratory Distress - Cardiovascular Exam Cardiovascular Exam: +S1, +S2 - GI/Abdominal Exam GI & Abdominal Exam: Soft, Normal Bowel Sounds. absent: Guarding, Tenderness, Organomegaly, Rebound - Extremities Exam Extremities Exam: absent: Calf Tenderness, Pedal Edema - Neurological Exam Neurological Exam: Alert, Awake, Oriented x3 - Skin Skin Exam: Dry, Warm Assessment and Plan - Assessment and Plan (Free Text) Assessment: Assessment: Anemia , s/p egd & colon, upper no source of GIB, colon colon polyps rx but not retrieved, presumed bx was food particle, no colonic mucousa identified Weight loss h/o stroke Epidydimitis CKD stage IIIa Hx of A.fib Hx of Depression HX of prostate ca, s/p radiation Plan: - CT abd/pelvis with PO contrast did not show any acute abnormalities or mass - H&H stable, continue monitoring for overt bleeding - Iron studies showed anemia of chronic disease - s/p IV iron - continue Eliquis - patient will need close outpatient monitoring for bleeding - consider home monitoring of INR - receiving IV abx -request CBC in am Seen and discussed with Dr. Koroma <María Elena Koroma V - Last Filed: 03/05/18 23:08> Objective - Vital Signs/Intake and Output Vital Signs (last 24 hours): Temp Pulse Resp BP Pulse Ox 98.6 F 88 18 104/61 98 03/05/18 14:00 03/05/18 14:00 03/05/18 14:00 03/05/18 14:00 03/05/18 14:00 Intake and Output: 03/05/18 03/06/18 18:59 06:59 Intake Total 480 120 Balance 480 120 - Medications Medications: Current Medications Acetaminophen (Tylenol 325mg Tab) 650 mg PO Q4H PRN PRN Reason: Fever >100.4 F Last Admin: 02/26/18 16:24 Dose: 650 mg Apixaban (Eliquis) 5 mg PO Q12 [facility] PRN Reason: Protocol Last Admin: 03/05/18 21:20 Dose: 5 mg Aspirin (Aspirin Chewable) 81 mg PO DAILY [facility] Last Admin: 03/05/18 10:02 Dose: 81 mg Atorvastatin Calcium (Lipitor) 40 mg PO HS [facility] Last Admin: 03/05/18 21:20 Dose: 40 mg Diltiazem HCl (Cardizem Cd) 240 mg PO DAILY [facility] Last Admin: 03/05/18 10:02 Dose: 240 mg Escitalopram Oxalate (Lexapro) 10 mg PO DAILY [facility] Last Admin: 03/05/18 10:01 Dose: 10 mg Famotidine (Pepcid) 40 mg PO HS [facility] Last Admin: 03/05/18 21:20 Dose: 40 mg Gabapentin (Neurontin) 300 mg PO BID [facility] PRN Reason: Protocol Last Admin: 03/05/18 17:23 Dose: 300 mg Cefepime HCl (Maxipime 1gm) 1 gm in 100 mls @ 100 mls/hr IVPB Q12 [facility] PRN Reason: Protocol Stop: 03/19/18 22:01 Last Admin: 03/05/18 21:20 Dose: 100 mls/hr Oxycodone/Acetaminophen (Percocet 2.5/325 Mg Tab) 1 tab PO Q6H PRN PRN Reason: Pain, severe (8-10) Thiamine HCl (Vitamin B1 Tab) 100 mg PO DAILY [facility] Last Admin: 03/05/18 10:02 Dose: 100 mg - Labs Labs: 03/03/18 19:50 03/03/18 19:50 PT 17.3 SECONDS (9.4-12.5) H 02/27/18 06:20 INR 1.49 (0.93-1.08) H 02/27/18 06:20 APTT 34.7 Seconds (25.1-36.5) 02/26/18 18:01 Attending/Attestation - Attestation I have personally seen and examined this patient.: Yes I have fully participated in the care of the patient.: Yes I have reviewed all pertinent clinical information, including history, physical exam and plan: Yes Notes (Text): p 03/05/18 23:08
--- NOTE | 2018-03-06 01:59 | PN ---
DATE: 03/05/2018 SUBJECTIVE: Patient is in bed, in no acute distress, nontoxic. Patient is seen earlier this morning in 567, bed 1. PHYSICAL EXAMINATION: VITAL SIGNS: Temperature of 98, blood pressure is 104/60, respiratory rate of 15. HEENT: Unremarkable. NECK: Supple. LUNGS: Have decreased breath sounds. HEART: Normal S1, S2. ABDOMEN: Soft, nontender. LABORATORY DATA: Reveals a white count of 10,000; hemoglobin of 8. Chemistries are noted. Creatinine of 1.5. Urine culture has E. Coli. ASSESSMENT AND PLAN: This is a 72 years old, who was seen earlier this morning with left-sided epididymitis with Escherichia coli, today is day number 11 of 14 days. We will follow with you. Review of the orders reveals the cefepime to be active. We will follow closely with you. Krishna Key MD
--- NOTE | 2018-03-06 06:06 | CP.PCM.PN ---
<Crystal Medina - Last Filed: 03/06/18 08:21> Subjective - Date & Time of Evaluation Date of Evaluation: 03/06/18 Time of Evaluation: 07:00 - Subjective Subjective: Progress Note for Anne Valentino PGY2 Patient seen and examined at bedside. There were no acute overnight events as per nursing staff. Patient denies chest pain, shortness of breath, nausea/ vomiting/diarrhea, numbness/tingling, fever or chills. Objective - Vital Signs/Intake and Output Vital Signs (last 24 hours): Temp Pulse Resp BP Pulse Ox 97.5 F L 92 H 20 114/72 96 03/05/18 23:13 03/05/18 23:13 03/05/18 23:13 03/05/18 23:13 03/05/18 23:13 Intake and Output: 03/05/18 03/06/18 18:59 06:59 Intake Total 480 120 Balance 480 120 - Medications Medications: Current Medications Acetaminophen (Tylenol 325mg Tab) 650 mg PO Q4H PRN PRN Reason: Fever >100.4 F Last Admin: 02/26/18 16:24 Dose: 650 mg Apixaban (Eliquis) 5 mg PO Q12 [facility] PRN Reason: Protocol Last Admin: 03/05/18 21:20 Dose: 5 mg Aspirin (Aspirin Chewable) 81 mg PO DAILY [facility] Last Admin: 03/05/18 10:02 Dose: 81 mg Atorvastatin Calcium (Lipitor) 40 mg PO HS [facility] Last Admin: 03/05/18 21:20 Dose: 40 mg Diltiazem HCl (Cardizem Cd) 240 mg PO DAILY [facility] Last Admin: 03/05/18 10:02 Dose: 240 mg Escitalopram Oxalate (Lexapro) 10 mg PO DAILY [facility] Last Admin: 03/05/18 10:01 Dose: 10 mg Famotidine (Pepcid) 40 mg PO HS [facility] Last Admin: 03/05/18 21:20 Dose: 40 mg Gabapentin (Neurontin) 300 mg PO BID [facility] PRN Reason: Protocol Last Admin: 03/05/18 17:23 Dose: 300 mg Cefepime HCl (Maxipime 1gm) 1 gm in 100 mls @ 100 mls/hr IVPB Q12 [facility] PRN Reason: Protocol Stop: 03/19/18 22:01 Last Admin: 03/05/18 21:20 Dose: 100 mls/hr Oxycodone/Acetaminophen (Percocet 2.5/325 Mg Tab) 1 tab PO Q6H PRN PRN Reason: Pain, severe (8-10) Thiamine HCl (Vitamin B1 Tab) 100 mg PO DAILY [facility] Last Admin: 03/05/18 10:02 Dose: 100 mg - Labs Labs: 03/03/18 19:50 03/03/18 19:50 PT 17.3 SECONDS (9.4-12.5) H 02/27/18 06:20 INR 1.49 (0.93-1.08) H 02/27/18 06:20 APTT 34.7 Seconds (25.1-36.5) 02/26/18 18:01 - Constitutional Appears: No Acute Distress - Head Exam Head Exam: ATRAUMATIC, NORMAL INSPECTION, NORMOCEPHALIC - Eye Exam Eye Exam: Normal appearance, PERRL Pupil Exam: NORMAL ACCOMODATION, PERRL - ENT Exam ENT Exam: Mucous Membranes Moist - Neck Exam Neck Exam: Full ROM - Respiratory Exam Respiratory Exam: Clear to Ausculation Bilateral, NORMAL BREATHING PATTERN. absent: Rales, Rhonchi, Wheezes - Cardiovascular Exam Cardiovascular Exam: REGULAR RHYTHM, +S1, +S2. absent: Gallop, Rubs, Murmur - GI/Abdominal Exam GI & Abdominal Exam: Soft, Tenderness. absent: Mass, Normal Bowel Sounds, Rebound - Extremities Exam Extremities Exam: absent: Calf Tenderness, Pedal Edema - Neurological Exam Neurological Exam: Alert, Awake Neuro motor strength exam: Left Upper Extremity: 5, Right Upper Extremity: 5, Left Lower Extremity: 4, Right Lower Extremity: 5 Additional comments: L sided facial droop - Psychiatric Exam Psychiatric exam: Normal Affect, Normal Mood - Skin Skin Exam: Dry, Warm Assessment and Plan - Assessment and Plan (Free Text) Assessment: This is a 72yo male with past medical history of gout, CKD stage IIIa, A.fib ( on Eliquis), CVA, prostate ca s/p radiation who is admitted for 1. Delirium (improved) 2. E.Coli UTI (improved) 3. R epididymitis (improved) 4. L Leg weakness (secondary to acute on chronic CVA) 5. Anemia of chronic disease 6. Weight loss (secondary to failure to thrive from CVA) 7. A fib (rate controlled) 8. CKD stage IIIa (stable) Plan: Patient is on day #9 out of 10 of Cefepime. ID is on consult. For his CVA, he is on ASA and Lipitor. Neurology is consulted. He will continue physical therapy , Gabapentin, thiamine, and pain control. Will continue Cardizem and Eliquis for his history of A.fib. Hgb has been stable without overt signs of bleeding. GI is following. Patient is on GI/DVT prophylaxis. Discussed discharge plan with daughter today. Patient will be discharged home tomorrow. He is unable to go to [facility] because he ran out of his days. Case seen, reviewed and discussed with Dr. Florencio Medina PGY2 <Alvin Matias S - Last Filed: 03/06/18 08:36> Objective - Vital Signs/Intake and Output Vital Signs (last 24 hours): Temp Pulse Resp BP Pulse Ox 98.5 F 101 H 18 123/85 97 03/06/18 06:00 03/06/18 06:00 03/06/18 06:00 03/06/18 06:00 03/06/18 06:00 Intake and Output: 03/06/18 03/06/18 06:59 18:59 Intake Total 120 0 Balance 120 0 - Medications Medications: Current Medications Acetaminophen (Tylenol 325mg Tab) 650 mg PO Q4H PRN PRN Reason: Fever >100.4 F Last Admin: 02/26/18 16:24 Dose: 650 mg Apixaban (Eliquis) 5 mg PO Q12 [facility] PRN Reason: Protocol Last Admin: 03/05/18 21:20 Dose: 5 mg Aspirin (Aspirin Chewable) 81 mg PO DAILY [facility] Last Admin: 03/05/18 10:02 Dose: 81 mg Atorvastatin Calcium (Lipitor) 40 mg PO HS [facility] Last Admin: 03/05/18 21:20 Dose: 40 mg Diltiazem HCl (Cardizem Cd) 240 mg PO DAILY [facility] Last Admin: 03/05/18 10:02 Dose: 240 mg Escitalopram Oxalate (Lexapro) 10 mg PO DAILY [facility] Last Admin: 03/05/18 10:01 Dose: 10 mg Famotidine (Pepcid) 40 mg PO HS [facility] Last Admin: 03/05/18 21:20 Dose: 40 mg Gabapentin (Neurontin) 300 mg PO BID [facility] PRN Reason: Protocol Last Admin: 03/05/18 17:23 Dose: 300 mg Cefepime HCl (Maxipime 1gm) 1 gm in 100 mls @ 100 mls/hr IVPB Q12 [facility] PRN Reason: Protocol Stop: 03/19/18 22:01 Last Admin: 03/05/18 21:20 Dose: 100 mls/hr Oxycodone/Acetaminophen (Percocet 2.5/325 Mg Tab) 1 tab PO Q6H PRN PRN Reason: Pain, severe (8-10) Thiamine HCl (Vitamin B1 Tab) 100 mg PO DAILY [facility] Last Admin: 03/05/18 10:02 Dose: 100 mg - Labs Labs: 03/06/18 07:00 03/03/18 19:50 PT 17.3 SECONDS (9.4-12.5) H 02/27/18 06:20 INR 1.49 (0.93-1.08) H 02/27/18 06:20 APTT 34.7 Seconds (25.1-36.5) 02/26/18 18:01 Assessment and Plan - Assessment and Plan (Free Text) Plan: Pt seen and examined. Agree with above note of medical practitioners. Daughter is aware of pt going home in AM. Labs and medications reviewed. Will need to continue Eliquis for A fib as well as ASA.
[2018-03-06 07:10] LABS: BASO # 0.01 K/mm3 (0.0-2.0); BASO % 0.1 % (0.0-3.0); EOS # 0.2 (0.0-0.7); EOS % 2.1 % (1.5-5.0); GRAN # 5.96 (1.4-6.5); LYMPH # 1.8 (1.2-3.4); LYMPH % 19.4 % (22.0-35.0); MEAN CELL VOLUME 81.7 fl (80.0-105.0); MEAN CORPUSCULAR HGB CONC 30.6 g/dl (31.0-37.0); MEAN PLATELET VOLUME 8.1 fl (7.0-11.0); MONO # 1.1 (0.1-0.6); MONO % 12.4 % (1.0-6.0); RBC 3.6 10^6/uL (3.5-6.1); RED CELL DISTRIBUTION WIDTH 16.7 % (11.5-14.5)
[2018-03-06] MEDS: diltiaZEM 240 mg/24 Hours CD Cap PO SCH (09:44)
[2018-03-06] MEDS: Nystatin 100,000 Units/gm Topical Pow(15 gm) TOP SCH ×2 (09:46→18:29)
[2018-03-06] MEDS: Cefepime 1gm in NS 100ml 1 GM/100 ML BAG IVPB SCH ×2 (09:46→21:03)
--- NOTE | 2018-03-06 10:53 | CP.PCM.PN ---
<Analisa Spears - Last Filed: 03/06/18 10:53> Subjective - Date & Time of Evaluation Date of Evaluation: 03/06/18 Time of Evaluation: 10:05 - Subjective Subjective: Seen and examined at bedside, chart reviewed. No New complaints, had BM yesterday, no melena or BRBPR. Denies N/V or abdominal pain. Drank some Ensure, ate a bit of breakfast. Encourage to drink Ensure. No acute overnight events reported. Objective - Vital Signs/Intake and Output Vital Signs (last 24 hours): Temp Pulse Resp BP Pulse Ox 98.5 F 101 H 18 123/88 97 03/06/18 06:00 03/06/18 09:44 03/06/18 06:00 03/06/18 09:44 03/06/18 06:00 Intake and Output: 03/06/18 03/06/18 06:59 18:59 Intake Total 120 0 Balance 120 0 - Medications Medications: Current Medications Acetaminophen (Tylenol 325mg Tab) 650 mg PO Q4H PRN PRN Reason: Fever >100.4 F Last Admin: 02/26/18 16:24 Dose: 650 mg Apixaban (Eliquis) 5 mg PO Q12 [facility] PRN Reason: Protocol Last Admin: 03/06/18 09:45 Dose: 5 mg Aspirin (Aspirin Chewable) 81 mg PO DAILY [facility] Last Admin: 03/06/18 09:45 Dose: 81 mg Atorvastatin Calcium (Lipitor) 40 mg PO HS [facility] Last Admin: 03/05/18 21:20 Dose: 40 mg Diltiazem HCl (Cardizem Cd) 240 mg PO DAILY [facility] Last Admin: 03/06/18 09:44 Dose: 240 mg Escitalopram Oxalate (Lexapro) 10 mg PO DAILY [facility] Last Admin: 03/06/18 09:44 Dose: 10 mg Famotidine (Pepcid) 40 mg PO HS [facility] Last Admin: 03/05/18 21:20 Dose: 40 mg Gabapentin (Neurontin) 300 mg PO BID [facility] PRN Reason: Protocol Last Admin: 03/06/18 09:44 Dose: 300 mg Cefepime HCl (Maxipime 1gm) 1 gm in 100 mls @ 100 mls/hr IVPB Q12 [facility] PRN Reason: Protocol Stop: 03/19/18 22:01 Last Admin: 03/06/18 09:46 Dose: 100 mls/hr Nystatin (Nystop Topical Powder) 1 gm TOP BID [facility] Last Admin: 03/06/18 09:46 Dose: 1 appl Oxycodone/Acetaminophen (Percocet 2.5/325 Mg Tab) 1 tab PO Q6H PRN PRN Reason: Pain, severe (8-10) Thiamine HCl (Vitamin B1 Tab) 100 mg PO DAILY [facility] Last Admin: 03/06/18 09:45 Dose: 100 mg - Labs Labs: 03/06/18 07:00 03/03/18 19:50 PT 17.3 SECONDS (9.4-12.5) H 02/27/18 06:20 INR 1.49 (0.93-1.08) H 02/27/18 06:20 APTT 34.7 Seconds (25.1-36.5) 02/26/18 18:01 - Constitutional Appears: No Acute Distress - Head Exam Head Exam: NORMOCEPHALIC - Eye Exam Eye Exam: Normal appearance. absent: Scleral icterus - ENT Exam ENT Exam: Mucous Membranes Moist - Neck Exam Neck Exam: Normal Inspection - Respiratory Exam Respiratory Exam: NORMAL BREATHING PATTERN. absent: Respiratory Distress - Cardiovascular Exam Cardiovascular Exam: +S1, +S2 - GI/Abdominal Exam GI & Abdominal Exam: Soft, Normal Bowel Sounds. absent: Guarding, Tenderness, Rebound - Neurological Exam Neurological Exam: Alert, Awake, Oriented x3 Assessment and Plan - Assessment and Plan (Free Text) Assessment: Assessment: Anemia , s/p egd & colon, upper no source of GIB, colon colon polyps rx but not retrieved, presumed bx was food particle, no colonic mucousa identified Weight loss h/o stroke Epidydimitis CKD stage IIIa Hx of A.fib Hx of Depression HX of prostate ca, s/p radiation Plan: - CT abd/pelvis with PO contrast did not show any acute abnormalities or mass - H&H stable, continue monitoring for overt bleeding - Iron studies showed anemia of chronic disease - s/p IV iron - continue Eliquis - patient will need close outpatient monitoring for bleeding - consider home monitoring of INR - on IV abx -Ensure TID w/ meals, encourage to drink Seen and discussed with Dr. Koroma <María Elena Koroma V - Last Filed: 03/07/18 01:18> Objective - Vital Signs/Intake and Output Vital Signs (last 24 hours): Temp Pulse Resp BP Pulse Ox 98.2 F 92 H 18 104/65 97 03/06/18 22:12 03/06/18 22:12 03/06/18 22:12 03/06/18 22:12 03/06/18 22:12 Intake and Output: 03/06/18 03/07/18 18:59 06:59 Intake Total 0 60 Balance 0 60 - Medications Medications: Current Medications Acetaminophen (Tylenol 325mg Tab) 650 mg PO Q4H PRN PRN Reason: Fever >100.4 F Last Admin: 02/26/18 16:24 Dose: 650 mg Apixaban (Eliquis) 5 mg PO Q12 [facility] PRN Reason: Protocol Last Admin: 03/06/18 21:03 Dose: 5 mg Aspirin (Aspirin Chewable) 81 mg PO DAILY [facility] Last Admin: 03/06/18 09:45 Dose: 81 mg Atorvastatin Calcium (Lipitor) 40 mg PO HS [facility] Last Admin: 03/06/18 21:03 Dose: 40 mg Diltiazem HCl (Cardizem Cd) 240 mg PO DAILY [facility] Last Admin: 03/06/18 09:44 Dose: 240 mg Escitalopram Oxalate (Lexapro) 10 mg PO DAILY [facility] Last Admin: 03/06/18 09:44 Dose: 10 mg Famotidine (Pepcid) 40 mg PO HS [facility] Last Admin: 03/06/18 21:03 Dose: 40 mg Gabapentin (Neurontin) 300 mg PO BID [facility] PRN Reason: Protocol Last Admin: 03/06/18 18:29 Dose: Not Given Cefepime HCl (Maxipime 1gm) 1 gm in 100 mls @ 100 mls/hr IVPB Q12 [facility] PRN Reason: Protocol Stop: 03/19/18 22:01 Last Admin: 03/06/18 21:03 Dose: 100 mls/hr Nystatin (Nystop Topical Powder) 1 gm TOP BID [facility] Last Admin: 03/06/18 18:29 Dose: 1 appl Oxycodone/Acetaminophen (Percocet 2.5/325 Mg Tab) 1 tab PO Q6H PRN PRN Reason: Pain, severe (8-10) Thiamine HCl (Vitamin B1 Tab) 100 mg PO DAILY [facility] Last Admin: 03/06/18 09:45 Dose: 100 mg - Labs Labs: 03/06/18 07:00 03/03/18 19:50 PT 17.3 SECONDS (9.4-12.5) H 02/27/18 06:20 INR 1.49 (0.93-1.08) H 02/27/18 06:20 APTT 34.7 Seconds (25.1-36.5) 02/26/18 18:01 Attending/Attestation - Attestation I have personally seen and examined this patient.: Yes I have fully participated in the care of the patient.: Yes I have reviewed all pertinent clinical information, including history, physical exam and plan: Yes Notes (Text): This is an addendum to GI progress report dictated by Analisa Spears NP.The patient was seen and examined earlier. Medical records, lab studies, imagings were reviewed. Last 24 hours events reviewed. Agreed with the above treatment plan as outlined in [employer] 's notes the with the addition of the following 03/07/18 01:17 03/07/18 01:18
--- NOTE | 2018-03-06 19:41 | CP.PCM.PN ---
Subjective - Date & Time of Evaluation Date of Evaluation: 03/06/18 Time of Evaluation: 11:20 - Subjective Subjective: Comfortable on a chair, no fevers, no nausea, no diarrhea. Objective - Vital Signs/Intake and Output Vital Signs (last 24 hours): Temp Pulse Resp BP Pulse Ox 98.5 F 101 H 18 123/88 97 03/06/18 06:00 03/06/18 09:44 03/06/18 06:00 03/06/18 09:44 03/06/18 06:00 Intake and Output: 03/06/18 03/06/18 06:59 18:59 Intake Total 120 0 Balance 120 0 - Medications Medications: Current Medications Acetaminophen (Tylenol 325mg Tab) 650 mg PO Q4H PRN PRN Reason: Fever >100.4 F Last Admin: 02/26/18 16:24 Dose: 650 mg Apixaban (Eliquis) 5 mg PO Q12 [facility] PRN Reason: Protocol Last Admin: 03/06/18 09:45 Dose: 5 mg Aspirin (Aspirin Chewable) 81 mg PO DAILY [facility] Last Admin: 03/06/18 09:45 Dose: 81 mg Atorvastatin Calcium (Lipitor) 40 mg PO HS [facility] Last Admin: 03/05/18 21:20 Dose: 40 mg Diltiazem HCl (Cardizem Cd) 240 mg PO DAILY [facility] Last Admin: 03/06/18 09:44 Dose: 240 mg Escitalopram Oxalate (Lexapro) 10 mg PO DAILY [facility] Last Admin: 03/06/18 09:44 Dose: 10 mg Famotidine (Pepcid) 40 mg PO HS [facility] Last Admin: 03/05/18 21:20 Dose: 40 mg Gabapentin (Neurontin) 300 mg PO BID [facility] PRN Reason: Protocol Last Admin: 03/06/18 09:44 Dose: 300 mg Cefepime HCl (Maxipime 1gm) 1 gm in 100 mls @ 100 mls/hr IVPB Q12 [facility] PRN Reason: Protocol Stop: 03/19/18 22:01 Last Admin: 03/06/18 09:46 Dose: 100 mls/hr Nystatin (Nystop Topical Powder) 1 gm TOP BID [facility] Last Admin: 03/06/18 09:46 Dose: 1 appl Oxycodone/Acetaminophen (Percocet 2.5/325 Mg Tab) 1 tab PO Q6H PRN PRN Reason: Pain, severe (8-10) Thiamine HCl (Vitamin B1 Tab) 100 mg PO DAILY [facility] Last Admin: 03/06/18 09:45 Dose: 100 mg - Labs Labs: 03/06/18 07:00 03/03/18 19:50 PT 17.3 SECONDS (9.4-12.5) H 02/27/18 06:20 INR 1.49 (0.93-1.08) H 02/27/18 06:20 APTT 34.7 Seconds (25.1-36.5) 02/26/18 18:01 - Constitutional Appears: Chronically Ill - Head Exam Head Exam: NORMAL INSPECTION - Respiratory Exam Respiratory Exam: Decreased Breath Sounds - Cardiovascular Exam Cardiovascular Exam: +S1, +S2 - GI/Abdominal Exam GI & Abdominal Exam: Soft. absent: Tenderness Assessment and Plan - Assessment and Plan (Free Text) Plan: Assessment left sided epididyimitis, clinically improving, grew E. coli from the urine renal failure, improving history of gouty arthritis history of right hand cellulitis chronic renal failure atrial fibrillation gout history of TIA history of prostate cancer Plan on Cefepime (day 12) to complete 14 days and will continue to monitor clinically
[2018-03-07 09:19] VITALS: BP 119/71; PULSE 82; RESP 20; TEMP 98.3; O2SAT 98
[2018-03-07] MEDS: diltiaZEM 240 mg/24 Hours CD Cap PO SCH (09:29)
[2018-03-07] MEDS: Cefepime 1gm in NS 100ml 1 GM/100 ML BAG IVPB SCH (09:29)
--- NOTE | 2018-03-07 18:43 | PN ---
DATE: 03/07/2018 SUBJECTIVE: The patient is in bed, in no acute distress. The patient is seen early this morning at 567. No fevers and chills. PHYSICAL EXAMINATION: VITAL SIGNS: Temperature is 98, blood pressure is 112/70, respiratory rate 16. HEENT: Unremarkable. NECK: Supple. LUNGS: Have decreased breath sounds. HEART: Normal S1 and S2. ABDOMEN: Soft. LABORATORY EXAMINATION: Reveals white count is noted and chemistries are reviewed. ASSESSMENT AND PLAN: A 72-year-old male with a left-sided epididymitis, gurney collection of urine 10 to 14 days. We will follow with you. The patient to follow up with Urology. Krishan Key MD
--- NOTE | 2018-03-08 09:28 | DS ---
HOSPITAL COURSE: Patient is 82 years old, who was brought to emergency room on 02/23/2018 because of increasing generalized weakness. He was getting increasingly lethargic, cannot take care of himself and it was also noticed during this visit that his left testicle was painful and was swollen. Patient had CT scan of the abdomen and pelvis done that shows unremarkable noncontrast enhanced CT of the abdomen and pelvis. Patient was treated for epididymitis. Carotid ultrasound was done. That was also unremarkable. Patient has MRI of the brain done. That was also unremarkable. 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 Patient also dropped hemoglobin. So, he underwent endoscopy and colonoscopy, done by Dr. Koroma. Stomach and duodenum was found to be normal. Today patient finished 10 days of antibiotics and being discharged home today. He has maxed also his rehab time. PAST MEDICAL HISTORY: Significant for: 1. Hypertension. 2. Status post CVA. 3. Left epididymitis. 4. Renal failure. 5. Gouty arthritis. 6. Chronic AFib, on Eliquis. 7. History of prostate CA. PHYSICAL EXAMINATION: GENERAL: On examination today, he is awake and alert, able to communicate. VITAL SIGNS: Afebrile, pulse 82, respirations 20, blood pressure 119/71. LUNGS: Bilateral fair airflow. No rhonchi or crackles. HEART: S1 and S2 audible. ABDOMEN: Soft, nontender. No rebound. No guarding. NEUROLOGIC: Patient is awake and alert, communicative. Somewhat forgetful. He has left-sided weakness. LABORATORY DATA: Yesterday's WBC is 9, hemoglobin 9, hematocrit 29.4, platelets 288. ASSESSMENT: 1. Altered mental status. 2. Epididymitis. 3. Hypertension. 4. History of cerebrovascular accident. 5. Resolved renal failure. 6. Intermittent atrial fibrillation. 7. Chronic atrial fibrillation. 8. Gouty arthritis. PLAN: Patient is being discharged home. He is going to resume his home medications including Lipitor, diltiazem, omeprazole, Eliquis, Lexapro, and gabapentin. He will follow up with his PMD. Savana Bautista MD
== END 2018-03-07 13:43 | disposition home health service (06) | DRG 727 ==
LOC: ED 13:37 → ERH 17:59 → 5RNO 19:27
PROVIDERS: ADMIT Internal Medicine Nephrology; ATTEND Internal Medicine Nephrology
PROC: 0DJ08ZZ Inspection of Upper Intestinal Tract, Via Natural or Artificial Opening Endoscopic (ICD-10-PCS; 2018-02-27)
PROC: 0DBM8ZX Excision of Descending Colon, Via Natural or Artificial Opening Endoscopic, Diagnostic (ICD-10-PCS; principal; 2018-02-27 13:45)
PROC: 3E0H87Z Introduction of Electrolytic and Water Balance Substance into Lower GI, Via Natural or Artificial Opening Endoscopic (ICD-10-PCS; 2018-02-27 13:45)
DX: N45.1 Epididymitis (principal); I63.40 Cerebral infarction due to embolism of unspecified cerebral artery; N39.0 Urinary tract infection, site not specified; G81.94 Hemiplegia, unspecified affecting left nondominant side; I12.9 Hypertensive chronic kidney disease with stage 1 through stage 4 chronic kidney disease, or unspecified chronic kidney disease; N18.3 Chronic kidney disease, stage 3 (moderate); I48.2 Chronic atrial fibrillation; M10.9 Gout, unspecified; R62.7 Adult failure to thrive; B96.20 Unspecified Escherichia coli [E. coli] as the cause of diseases classified elsewhere; N49.2 Inflammatory disorders of scrotum; F32.9 Major depressive disorder, single episode, unspecified; D63.8 Anemia in other chronic diseases classified elsewhere; N39.490 Overflow incontinence; I65.23 Occlusion and stenosis of bilateral carotid arteries; K63.5 Polyp of colon; K64.8 Other hemorrhoids; M19.90 Unspecified osteoarthritis, unspecified site; M48.061 Spinal stenosis, lumbar region without neurogenic claudication; D50.9 Iron deficiency anemia, unspecified; R63.4 Abnormal weight loss; I95.9 Hypotension, unspecified; Z16.39 Resistance to other specified antimicrobial drug; R41.0 Disorientation, unspecified; Z79.01 Long term (current) use of anticoagulants; Z85.46 Personal history of malignant neoplasm of prostate; Z79.82 Long term (current) use of aspirin; Z92.3 Personal history of irradiation; Z74.01 Bed confinement status

== ENCOUNTER 2018-03-31 17:46 | Inpatient (IN) | payer MEDICARE, OTHER ==
[2018-03-31 17:46] VITALS: BMI 27.3
[2018-03-31] MEDS ORDERED: Iohexol 350 MG/100 ML VIAL ONE (18:03)
[2018-03-31 18:08] LABS: VENOUS BLOOD GAS BASE EXCESS 4.4 mmol/L (0.0-2.0); VENOUS BLOOD GAS PO2 42 mm/Hg (30-55); VENOUS BLOOD PH 7.44 (7.32-7.43)
[2018-03-31 18:15] LABS: BASO # 0.01 K/mm3 (0.0-2.0); BASO % 0.1 % (0.0-3.0); EOS # 0.1 (0.0-0.7); GRAN # 9.13 (1.4-6.5); GRAN % 72.2 % (50.0-68.0); LYMPH # 2.2 (1.2-3.4); LYMPH % 17.2 % (22.0-35.0); MEAN CELL VOLUME 80.5 fl (80.0-105.0); MEAN CORPUSCULAR HEMOGLOBIN 25.5 pg (25.0-35.0); MEAN CORPUSCULAR HGB CONC 31.7 g/dl (31.0-37.0); MEAN PLATELET VOLUME 8.6 fl (7.0-11.0); MONO # 1.2 (0.1-0.6); MONO % 9.5 % (1.0-6.0); RBC 4.31 10^6/uL (3.5-6.1); RED CELL DISTRIBUTION WIDTH 17.3 % (11.5-14.5); WHITE BLOOD COUNT 12.7 10^3/ul (4.5-11.0)
[2018-03-31 18:25] LABS: ALB/GLOB RATIO 0.8 (1.1-1.8); ALBUMIN 3.5 g/dL (3.0-4.8); ALT/SGPT 53 U/L (7-56); AST/SGOT 122 U/L (17-59); BLOOD UREA NITROGEN 27 mg/dL (7-21); CALCIUM 9.4 mg/dL (8.4-10.5); GFR AFRICAN-AMERICAN 60; GFR NON-AFRICAN AMERICAN 50; HDL CHOLESTEROL 21 mg/dL (29-60)
--- NOTE | 2018-03-31 18:25 | CT ---
PROCEDURE: CT HEAD WITHOUT CONTRAST. HISTORY: Code Stroke COMPARISON: 02/26/2018 and 02/23/[address] scans of the head TECHNIQUE: Axial computed tomography images were obtained through the head/brain without intravenous contrast. Coronal and sagittal reconstructed images. Radiation dose: Total exam DLP = 987.71 mGy-cm. This CT exam was performed using one or more of the following dose reduction techniques: Automated exposure control, adjustment of the mA and/or kV according to patient size, and/or use of iterative reconstruction technique. FINDINGS: HEMORRHAGE: No intracranial hemorrhage. BRAIN: No mass effect or edema. Atrophy, periventricular small vessel disease. Encephalomalacia regions most prominent posterior right parietal region, left temporal lobe. VENTRICLES: Unremarkable. No hydrocephalus. CALVARIUM: Unremarkable. PARANASAL SINUSES: Unremarkable as visualized. No significant inflammatory changes. MASTOID AIR CELLS: Unremarkable as visualized. No inflammatory changes. OTHER FINDINGS: None. IMPRESSION: No acute intracranial abnormalities. No significant findings to account for the clinical presentation. No significant interval change compared to the prior examination(s). Code stroke protocol: Study completed 18:10 Radiologist notified 18:14 Results conveyed verbally at 18:21 I discussed findings directly with the attending physician in the emergency department Dr. Stanford Hobbs Interpretation finalized and available for review 18:22
[2018-03-31 18:28] LABS: INR 1.83 (0.93-1.08); PARTIAL THROMBOPLASTIN TIME 34.2 Seconds (25.1-36.5); PROTHROMBIN TIME 21.1 SECONDS (9.4-12.5)
[2018-03-31 18:29] LABS: LDL CHOLESTEROL 44 mg/dL (0-129)
[2018-03-31 18:32] LABS: TROPONIN I < 0.01 ng/mL
--- NOTE | 2018-03-31 18:32 | ED PDOC ---
Arrival/HPI - General Time Seen by Provider: 03/31/18 17:47 Historian: Patient - History of Present Illness Narrative History of Present Illness (Text): 03/31/18 17:55 A 73 year old male, whose past medical history includes Atrial Fibrillation on Eliquis, previous CVA (left-side deficits at baseline), who is accompanied by family and presents to the emergency department complaining of dysphasia and right arm pain and "weakness" that began "few days ago." Per family, patient has been making inappropriate speech. Patient experiences confusion and left- weakness as baseline. Patient denies any fever, pain, or any other specific complaints at this time. No PMD 03/31/18 19:43 Past Medical History - Provider Review Nursing Documentation Reviewed: Yes - Infectious Disease Hx of Infectious Diseases: None - Tetanus Immunization Tetanus Immunization: Unknown - Cardiac Hx Cardiac Disorders: Yes Hx Hypertension: Yes - Pulmonary Hx Respiratory Disorders: No - Neurological Hx Transient Ischemic Attacks (TIA): Yes (x2 10/2015 confusion worsened as per daughter) Other/Comment: confusion/memory loss for 2 or 3 yrs as per daughter worsened the last month - HEENT Hx HEENT Disorder: No - Renal Hx Renal Disorder: No - Endocrine/Metabolic Hx Endocrine Disorders: No - Hematological/Oncological Hx Blood Transfusions: No Hx Blood Transfusion Reaction: No - Integumentary Hx Dermatological Disorder: Yes (RIGHT ARM CELLULITIS 11-16-16) Other/Comment: HAS A SMALL INCISION TO RIGHT UPPER BACK ,PURPLISH HUE IN COLOR, FLUSHED SKIN. HAD BEEN INCISED AND DRAINED, sometimes drains. HAS H/O OF BACK SX 2008., recently admitted for cellulitis right arm 11/16/16presently healing, scratch auguste to rle, multiple auguste on arms from dogs scratchiing pt, pt spilled coffee on his right foot 2 wounds healing, multiple red areas of skin to left foot and bunyon, right foot +1 edema redness and redness to bunyon, buldging vein to lle - Musculoskeletal/Rheumatological Hx Falls: No - Gastrointestinal Hx Gastrointestinal Disorders: No - Genitourinary/Gynecological Hx Genitourinary Disorders: No - Psychiatric Hx Depression: Yes Hx Substance Use: No - Surgical History Hx Cardiac Catheterization: Yes Other/Comment: back sx 2008, spinal cord compression from weight lifting - Anesthesia Hx Anesthesia Reactions: No Hx Malignant Hyperthermia: No - Suicidal Assessment Feels Threatened In Home Enviroment: No Family/Social History - Physician Review Nursing Documentation Reviewed: Yes Family/Social History: No Known Family HX Smoking Status: Never Smoked Hx Alcohol Use: No Hx Substance Use: No Allergies/Home Meds Allergies/Adverse Reactions: Allergies No Known Allergies Allergy (Verified 03/31/18 18:01) Home Medications: Home Meds Medication Instructions Recorded Confirmed Albuterol/Ipratropium [Duoneb 3 3 ml IH QID 02/23/18 03/31/18 mg/0.5 mg (3 ml) UD] Apixaban [Eliquis] 5 mg PO BID 02/23/18 03/31/18 Atorvastatin [Lipitor] 40 mg PO HS 02/23/18 03/31/18 Escitalopram [Lexapro] 10 mg PO DAILY 02/23/18 03/31/18 Gabapentin [Neurontin] 300 mg PO BID 02/23/18 03/31/18 Omeprazole 40 mg PO DAILY 02/23/18 03/31/18 Review of Systems - Physician Review All systems were reviewed & negative as marked: Yes - Review of Systems Constitutional: absent: Fevers Respiratory: absent: SOB, Cough Cardiovascular: absent: Chest Pain, Palpitations Gastrointestinal: absent: Abdominal Pain, Diarrhea, Nausea, Vomiting Neurological: Speech Changes (dysphasia), Other (left-side weakness and confusion (baseline)) Physical Exam Vital Signs Reviewed: Yes Vital Signs Temp Pulse Resp BP Pulse Ox 03/31/18 21:28 113 H 19 110/80 98 03/31/18 19:41 109 H 13 114/71 94 L 03/31/18 19:26 146 H 13 110/57 L 97 03/31/18 18:56 145 H 03/31/18 18:36 138 H 12 124/82 97 03/31/18 17:53 98.9 F 120 H 18 102/74 98 Temperature: Afebrile Blood Pressure: Normal Pulse: Regular Respiratory Rate: Normal Appearance: Positive for: Well-Appearing, Non-Toxic, Comfortable Pain Distress: None Mental Status: No: Alert and Oriented X 3 (oriented x 2) - Systems Exam Head: Present: Atraumatic, Normocephalic Pupils: Present: PERRL Extroacular Muscles: Present: EOMI Conjunctiva: Present: Normal Mouth: Present: Moist Mucous Membranes Neck: Present: Paraspinal Tenderness (cervical region (right-side)), Other ( limited ROM) Respiratory/Chest: Present: Clear to Auscultation, Good Air Exchange. No: Respiratory Distress, Accessory Muscle Use Cardiovascular: Present: Regular Rate and Rhythm, Normal S1, S2. No: Murmurs Abdomen: No: Tenderness, Distention, Peritoneal Signs Back: Present: Normal Inspection Upper Extremity: Present: Normal Inspection. No: Cyanosis, Edema Lower Extremity: Present: Normal Inspection. No: Edema Skin: Present: Warm, Dry, Normal Color. No: Rashes Psychiatric: Present: Alert. No: Oriented x 3 (oriented x 2) Medical Decision Making ED Course and Treatment: 03/31/18 18:00 Impression: 73 year old male with dysphasia and right arm pain. Physical exam shows right-cervical paraspinal tenderness to neck and limited ROM. Plan: -- EKG -- Head CT -- Head/Neck CTA -- Chest X-ray -- Labs -- Urinalysis -- IV Fluids -- Reassess and disposition Prior Visits: Notes and results from previous visits were reviewed. Patient was last seen in the emergency department on 02/23/2018 for evaluation. Patient was admitted. Progress Notes: EKG: Ordered, reviewed, and independently interpreted the EKG. Rate : 138 BPM Rhythm : Atrial Fibrillation Interpretation : No ST-segment elevations or depressions, no T-wave inversions, normal intervals. Comparison : No previous EKG for comparison. 03/31/18 18:11 Code Stroke called. 03/31/2018 18:[address] IMPRESSION: No acute intracranial abnormalities. No significant findings to account for the clinical presentation. No significant interval change compared to the prior examination(s). Dictator: Major Charles MD 03/31/2018 18:35 Chest X-ray IMPRESSION: No active disease. No acute/significant interval changes. Dictator: Major Charles MD 03/31/18 19:[address] zamora, not tpa candidate as onset for 2-[address] macias requests dr macias consult - Lab Interpretations Lab Results: 03/31/18 18:00 03/31/18 18:00 Lab Results 03/31/18 19:35: Urine Color Yellow, Urine Appearance Clear, Urine pH 6.0, Ur Specific [place] 1.010, Urine Protein 100 H, Urine Glucose (UA) Negative, Urine Ketones Negative, Urine Blood Trace-lysed H, Urine Nitrate Negative, Urine Bilirubin Negative, Urine Urobilinogen 2.0 H, Ur Leukocyte Esterase Negative, Urine RBC 2 - 5, Urine WBC 0 - 2, Ur Epithelial Cells 0 - 2, Amorphous Sediment Few, Urine Bacteria Many, Hyaline Casts 0 - 2, Coarse Granular Casts Trace H 03/31/18 18:28: Blood Type A POSITIVE, Antibody Screen Negative, BBK History Checked Patient has bt 03/31/18 18:00: pO2 42, VBG pH 7.44 H, VBG pCO2 43.0, VBG HCO3 29.2 H, VBG Total CO2 30.5 H, VBG O2 Sat (Calc) 82.5 H, VBG Base Excess 4.4 H, VBG Potassium 3.9, Sodium 135.0, Chloride 99.0, Glucose 123 H, Lactate 1.8, FiO2 21.0, Venous Blood Potassium 3.9 03/31/18 18:00: Hemoglobin A1c 6.2 03/31/18 18:00: Sodium 136, Chloride 97 L, Potassium 4.0, Carbon Dioxide 28, Anion Gap 16, BUN 27 H, Creatinine 1.4, Est GFR ( Amer) 60, Est GFR (Non- Af Amer) 50, Random Glucose 124 H, Calcium 9.4, Total Bilirubin 1.0, AST 122 H D , ALT 53, Alkaline Phosphatase 172 H D, Troponin I < 0.01, Total Protein 8.0, Albumin 3.5, Globulin 4.5, Albumin/Globulin Ratio 0.8 L, Triglycerides 143, Cholesterol 100 L, LDL Cholesterol Direct 44, HDL Cholesterol 21 L 03/31/18 18:00: PT 21.1 H, INR 1.83 H, APTT 34.2 03/31/18 18:00: WBC 12.7 H D, RBC 4.31, Hgb 11.0 L D, Hct 34.7 L, MCV 80.5, MCH 25.5, MCHC 31.7, RDW 17.3 H, Plt Count 305, MPV 8.6, Gran % 72.2 H, Lymph % ( Auto) 17.2 L, [place] % (Auto) 9.5 H, Eos % (Auto) 1.0 L, Baso % (Auto) 0.1, Gran # 9.13 H, Lymph # (Auto) 2.2, [place] # (Auto) 1.2 H, Eos # (Auto) 0.1, Baso # ( Auto) 0.01 I have reviewed the lab results: Yes - RAD Interpretation Radiology Orders: 03/31/18 18:00 CTA HEAD/NECK CODE STROKE [CT] Stat HEAD W/O (CODE STROKE) [CT] Stat CHEST ONE VIEW [RAD] Stat - Medication Orders Current Medication Orders: Discontinued Medications Albuterol/Ipratropium (Duoneb 3 Mg/0.5 Mg (3 Ml) Ud) 3 ml IH QID [facility] Last Admin: 04/02/18 11:32 Dose: 3 ml Albuterol/Ipratropium (Duoneb 3 Mg/0.5 Mg (3 Ml) Ud) 3 ml IH RQID [facility] Last Admin: 04/03/18 16:13 Dose: 3 ml Apixaban (Eliquis) 5 mg PO BID [facility] PRN Reason: Protocol Last Admin: 04/03/18 17:26 Dose: 5 mg Aspirin (Aspirin) 325 mg PO STAT STA Stop: 03/31/18 22:25 Last Admin: 03/31/18 22:33 Dose: 325 mg Aspirin (Ecotrin) 81 mg PO DAILY [facility] Last Admin: 04/03/18 11:33 Dose: 81 mg Atorvastatin Calcium (Lipitor) 40 mg PO HS [facility] Last Admin: 04/02/18 22:50 Dose: 40 mg Darbepoetin Kye (Aranesp) 100 mcg SC ONCE ONE Stop: 04/02/18 15:26 Last Admin: 04/02/18 17:58 Dose: 100 mcg Subcutaneous Administrations Document 04/02/18 17:58 CD (Rec: 04/02/18 17:58 CD [id number]) Injection Site MAR Injection Site Left Arm Charges for Administration # of Subcutaneous Administrations 1 Diltiazem HCl (Cardizem) 20 mg IVP STAT STA Stop: 03/31/18 18:47 Last Admin: 03/31/18 18:56 Dose: 20 mg IVP Administration Document 03/31/18 18:56 HI (Rec: 03/31/18 19:13 HI [id number]) Charges for Administration # of IVP Administrations 1 MAR Pulse and Blood Pressure Document 03/31/18 18:56 HI (Rec: 03/31/18 19:13 HI [id number]) Pulse Pulse Rate (60-90) 145 Diltiazem HCl (Cardizem Cd) 240 mg PO DAILY [facility] Last Admin: 04/03/18 11:32 Dose: 240 mg MAR Pulse and Blood Pressure Document 04/03/18 11:32 CD (Rec: 04/03/18 11:33 CD [id number]) Pulse Pulse Rate (60-90) 93 Blood Pressure Blood Pressure (100/60-150/90) 111/68 Doxycycline Hyclate (Doryx) 100 mg PO Q12 [facility] PRN Reason: Protocol Stop: 04/09/18 22:01 Last Admin: 04/03/18 14:11 Dose: Escitalopram Oxalate (Lexapro) 10 mg PO DAILY [facility] Last Admin: 04/03/18 11:32 Dose: 10 mg Gabapentin (Neurontin) 300 mg PO BID [facility] PRN Reason: Protocol Last Admin: 04/03/18 17:26 Dose: 300 mg Sodium Chloride (Sodium Chloride 0.9%) 1,000 mls @ 100 mls/hr IV .Q10H [facility] Last Admin: 04/01/18 05:44 Dose: 100 mls/hr eMAR Start Stop Document 04/01/18 05:44 ST (Rec: 04/01/18 05:44 ST [id number]) Intravenous Solution Start Date 04/01/18 Start Time 05:44 Meropenem (Merrem Iv 1 Gm Premix) 50 mls @ 100 mls/hr IVPB Q12 [facility] PRN Reason: Protocol Stop: 04/10/18 16:52 Last Admin: 04/02/18 22:50 Dose: 100 mls/hr eMAR Start Stop Document 04/02/18 22:50 SRE (Rec: 04/02/18 22:50 SRE [id number]) Intravenous Solution Start Date 04/02/18 Start Time 22:50 Vancomycin HCl (Vancomycin 1gm) 1 gm in 250 mls @ 167 mls/hr IVPB DAILY [facility] PRN Reason: Protocol Stop: 04/10/18 17:01 Last Admin: 04/02/18 12:47 Dose: Acyclovir 500 mg/ Sodium (Chloride) 100 mls @ 100 mls/hr IV Q12 [facility] PRN Reason: Protocol Last Admin: 04/02/18 12:47 Dose: Pantoprazole Sodium (Protonix Ec Tab) 40 mg PO ONCE ONE Stop: 04/02/18 13:35 Last Admin: 04/02/18 13:50 Dose: 40 mg Pantoprazole Sodium (Protonix Ec Tab) 40 mg PO 0600 [facility] Last Admin: 04/03/18 05:52 Dose: 40 mg Potassium Chloride (K-Dur 20 Meq Er Tab) 20 meq PO ONCE ONE Stop: 04/02/18 08:31 Last Admin: 04/02/18 10:47 Dose: 20 meq NIHSS Scale ([place]) Time Performed: 19:44 - How Severe is the Stoke Baseline Level of Consciousness: 0=Alert LOC to Questions: 1=One correct LOC to commands: 0=Obeys both correctly Best Gaze: 0=Normal Visual: 0=No visual loss Facial: 0=Normal Motor Arm - Left: 0=No drift (baseline weakness) Motor Arm - Right: 2=Falls before 10 sec (2/2 pain) Motor Leg - Left: 0=No drift (baseline) Motor Leg - Right: 0=No drift Limb Ataxia: 0=Absent Sensory: 0=Normal Best Language: 0=No aphasia Dysarthia: 0=Normal articulation Extinction & Inattention (Neglect): 0=Normal, no object Score: 3 Risk Level: Minor Stroke Risk rTPA Inclusion/Exclusion - Refusal of Treatment Patient Refused Treatment: No - Inclusion Criteria for Altepase Patient is 18 years or Older: Yes The Clinical Diagnosis of Ischemic Stroke That is Causing a Potentially Disabling Neurological Deficit: Yes Time of Onset is Well Established to be Less Than 270 Minute Before Treatment Would Begin: No Risk/Benefit Discussed With Patient/Family Member Present: Yes - Scribe Statement The provider has reviewed the documentation as recorded by the Elizabeth Andrews Provider Scribe Attestation: All medical record entries made by the Elizabeth were at my direction and personally dictated by me. I have reviewed the chart and agree that the record accurately reflects my personal performance of the history, physical exam, medical decision making, and the department course for this patient. I have also personally directed, reviewed, and agree with the discharge instructions and disposition. Disposition/Present on Arrival - Present on Arrival Any Indicators Present on Arrival: No History of DVT/PE: No History of Uncontrolled Diabetes: No Urinary Catheter: No History of Decub. Ulcer: No History Surgical Site Infection Following: None - Disposition Have Diagnosis and Disposition been Completed?: Yes Diagnosis: Arm weakness Disposition: HOSPITALIZED Disposition Time: 05:00 Condition: FAIR
--- NOTE | 2018-03-31 18:36 | RAD ---
PROCEDURE: CHEST RADIOGRAPH, 1 VIEW HISTORY: Code Stroke COMPARISON: 02/23/2018 FINDINGS: LUNGS: Clear. PLEURA: No pneumothorax or pleural fluid seen. CARDIOVASCULAR: No radiographic findings to suggest acute or significant cardiovascular disease. OSSEOUS STRUCTURES: Stable position of orthopedic hardware cervical spine. VISUALIZED UPPER ABDOMEN: Normal. OTHER FINDINGS: None. IMPRESSION: No active disease. No acute/significant interval changes.
--- NOTE | 2018-03-31 18:51 | CT ---
PROCEDURE: CT Angiography of the Brain and Neck. HISTORY: code stroke COMPARISON: None available. TECHNIQUE: CT angiography of the intracranial and neck arteries was performed. Coronal and sagittal maximum intensity projection reformatted images were generated. Contrast Dose: Omnipaque 350, 100 cc Radiation dose:Total exam DLP = 722.33 mGy-cm. This CT exam was performed using one or more of the following dose reduction techniques: Automated exposure control, adjustment of the mA and/or kV according to patient size, and/or use of iterative reconstruction technique. FINDINGS: INTERNAL CEREBRAL ARTERIES: Limited atherosclerotic plaques in the bilateral cavernous ICA segments. The skull base, petrous, cavernous and supraclinoid segments are bilaterally widely patent. ANTERIOR CEREBRAL ARTERIES: Unremarkable. A1 and A2 segments are widely patent. Smaller distal branches unremarkable, as visualized. MIDDLE CEREBRAL ARTERIES: Unremarkable. M1 and M2 segments are widely patent. Perisylvian branches grossly symmetric. POSTERIOR CIRCULATION: Basilar Artery: Unremarkable. Distal Vertebral Arteries: Codominant vertebrobasilar circulation evident. Posterior Cerebral Arteries: Unremarkable. Posterior Inferior Cerebellar Arteries: Unremarkable. NECK CTA: Common Carotid arteries: The bilateral common carotid appear widely patent from their origins to their bifurcations with no significant stenosis appreciated. Moderate bilateral carotid bulbar atherosclerotic plaque is identified. No evidence to suggest common carotid artery dissection. Internal Carotid arteries: 55-65 percent stenosis of the origins of the bilateral internal carotid arteries is appreciated which resume normal caliber a few mm CT of the stenosis. There is no evidence of dissection grossly. External Carotid arteries: Appear unremarkable bilaterally. Vertebral arteries: The bilateral vertebral arteries appear normal in caliber from their origins to their junction with the basilar artery. No significant stenosis or definite pattern of dissection. ANEURYSM/ VASCULAR MALFORMATIONS: None. OTHER FINDINGS: None. IMPRESSION: 1. No occlusion or significant stenosis identified in CT angiography of the brain. 2. Short segment moderate stenoses at the origins of the bilateral internal carotid arteries with the bilateral ICAs otherwise widely patent. Trace atherosclerotic plaque bilateral ICA cavernous segments.
[2018-03-31] MEDS: Sodium Chloride 0.9% 1,000 ML IV SCH (18:56)
[2018-03-31 19:54] LABS: URINE BILIRUBIN NEGATIVE (NEGATIVE); URINE BLOOD TRACE-LYSED (NEGATIVE); URINE GLUCOSE (UA) NEGATIVE (NEGATIVE); URINE LEUKOCYTE ESTERASE NEGATIVE Leu/uL (NEGATIVE); URINE PROTEIN 100 mg/dL (<30 mg/dL)
[2018-03-31 19:55] LABS: URINE APPEARANCE CLEAR (CLEAR); URINE COLOR YELLOW (YELLOW)
[2018-03-31 20:03] LABS: URINE BACTERIA MANY (NEG); URINE COARSE GRANULAR CAST TRACE /hpf (0-2); URINE EPITHELIAL CELLS 0 - 2 /hpf (0-5); URINE HYALINE CAST 0 - 2 /hpf; URINE WBC 0 - 2 /hpf (0-6)
[2018-03-31 20:04] LABS: URINE AMORPHOUS SEDIMENT FEW
[2018-04-01] MEDS: Sodium Chloride 0.9% 1,000 ML IV SCH (05:44)
--- NOTE | 2018-04-01 08:12 | CARD ---
APPROVED REPORT EKG Measurement Heart [id number] <Conclusion> Atrial flutter with 2-3:1 conduction Possible Inferior infarct, age undetermined Abnormal ECG
[2018-04-01] MEDS: diltiaZEM 240 mg/24 Hours CD Cap PO SCH (09:11)
[2018-04-01] MEDS: Albuterol-Ipratrop 3 mg / 0.5 (3 ml) UD IH SCH ×3 (11:04→21:00)
--- NOTE | 2018-04-01 13:24 | CON ---
DATE: 04/01/2018 HISTORY OF PRESENT ILLNESS: This is a 73-year-old male with past medical history of atrial fibrillation and on Eliquis. The patient had old stroke, came to the Emergency Department with dysphasia, right arm pain and weakness, which started 2 weeks ago and also inappropriate speech, confusion and called to evaluate the patient. PAST MEDICAL HISTORY: Stroke and cardiac cath. ALLERGY: NO KNOWN DRUG ALLERGY. HOME MEDICATIONS: Eliquis, Lipitor, Lexapro, Neurontin. REVIEW OF THE SYSTEMS: Ten-point review of systems was negative except altered mental status and weakness. PHYSICAL EXAMINATION: VITAL SIGNS: Blood pressure 124/82. HEENT: Normocephalic, atraumatic. NECK: Supple. NEUROLOGIC: Awake, oriented to self, intermittent confusion and right-sided weakness and speech difficulty. The patient has motor examination, limited movement of arms, especially right upper extremity and also limited movement of both the legs. The patient says he has not been ambulating for more than 2 weeks. CAT scan of the head was done, which did not show any intracranial abnormality. LABORATORY DATA: WBC 12.7, hemoglobin 11, hematocrit of 34.7 and platelet 305. Sodium 136, potassium 4, chloride 97, CO2 of 28, glucose 124, BUN 27, creatinine 1.4. CAT scan of the head was negative. Workup in progress and we will follow it up. Head and neck CTA was done, which shows no occlusion in the brain and short segment of stenosis of internal carotid artery. ASSESSMENT: Workup in progress. Continue present management. We will follow up. Antony Oliver MD
--- NOTE | 2018-04-01 16:16 | MRI ---
PROCEDURE: MRI BRAIN WITHOUT CONTRAST HISTORY: cva COMPARISON: 02/26/2018 TECHNIQUE: Multiplanar, multisequence MR images of the brain were obtained without intravenous contrast enhancement. FINDINGS: HEMORRHAGE: None DWI: No evidence of an acute or early subacute infarction. BRAIN PARENCHYMA: No mass effect or edema. Severe chronic microvascular changes. Old infarcts of the right parietal and left temporal lobes. Also a small old infarct of the left cerebellar hemisphere VENTRICLES: Unremarkable. No hydrocephalus. CRANIUM: Unremarkable. ORBITS: Grossly unremarkable. PARANASAL SINUSES/MASTOIDS: Clear VASCULAR SYSTEM: Skull base flow voids intact. OTHER FINDINGS: None. IMPRESSION: No acute intracranial findings
[2018-04-01] MEDS: Meropenem IV 1 gm in NS 50 ML IVPB SCH ×2 (18:07→21:39)
[2018-04-01] MEDS: Vancomycin 1gm in NS 250ml 1 GM/250 ML BAG IVPB SCH (18:07)
--- NOTE | 2018-04-01 20:08 | HP ---
CHIEF COMPLAINT AND HISTORY OF PRESENT ILLNESS: This is a 73-year-old male who is coming into the hospital because he was having right shoulder weakness. The patient was at home and I had received a call from the visiting nurse who stated that the patient had right shoulder and arm weakness. This was new. This happened over the weekend. The patient does have a history of CVA with left-sided residual weakness. The patient was advised to go to a local ER that patient's daughter decided to bring him to [place] for further evaluation because most of his physicians are here. In the ER, the patient was also having rapid rate because of atrial fibrillation, he has been on Eliquis. The patient has a history of gout, CKD stage III, prostate cancer with radiation. He denies any fevers or chills. He says he has difficulty in moving his right arm. He is dependent on his ADLs because he is not ambulatory and is homebound. He is able to use a walker. He does help himself with bathing and feeding. He has no chest pain, no shortness of breath, no abdominal pain, no headaches or dizziness, no dysarthria or diplopia. ALLERGIES: NO KNOWN DRUG ALLERGIES. PAST MEDICAL HISTORY: Gout; CKD, stage III A; AFib, on Eliquis; CVA; prostate cancer, status post radiation. PAST SURGICAL HISTORY: Back surgery. MEDICATIONS: Home medications have been reviewed on the DEC. SOCIAL HISTORY: He denies smoking, drinking or alcohol. He lives with his . FAMILY HISTORY: Noncontributory. PHYSICAL EXAMINATION VITAL SIGNS: Temperature is 97.9, pulse of 110, blood pressure is 125/82, respirations 18, O2 saturation 98%. Height 5 feet 8 inches. Weight is 163 pounds. BMI is 24.8. GENERAL: The patient lying in bed, uncomfortable, and in no acute distress. HEENT: Atraumatic and normocephalic. Anicteric sclerae. Moist mucosa. Macopin conjunctivae. No oral lesions. NECK: No JVD, anterior and posterior adenopathy, thyromegaly, or bruits. CARDIOVASCULAR: S1 and S2 regular. No murmur, rubs, or gallop. LUNGS: Clear to auscultation bilaterally. No wheezes, rales, or rhonchi. ABDOMEN: Bowel sounds are positive. Soft, nontender and nondistended. No hepatosplenomegaly. No rebound and no guarding EXTREMITIES: No cyanosis, clubbing, or edema. NEUROLOGIC: No facial asymmetry. Tongue is midline. No uvula deviation. Sensation intact in upper extremity and lower extremity. He has right shoulder weakness, power is 1/5. The distal arm and the hand is 3/4-5 power. Left leg is 4/5 power. PSYCHIATRIC: He is awake, alert and oriented x3. No anxiety or depression. He has normal affect. GENITOURINARY: No CVA tenderness. VASCULAR: 2+ pulses in the carotid pulses and pedal pulses. SKIN: No erythema or nodules SPINE: Shows normal curvature. LABORATORY DATA: White count of 12.7, hemoglobin of 11, platelet count of 305. Urine shows blood esterase, nitrites are negative, proteins are 100. Creatinine is 1.4. The patient has a potassium is 4, HDL is 21, INR is 1.8. CTA done shows no occlusion or significant stenosis identified. There is a short segment of moderate stenosis in the origin of the bilateral internal carotids. EKG shows atrial flutter with 138. A chest x-ray done shows no active disease. CT of the head shows no acute intracranial abnormalities. ASSESSMENT: 1. Acute cerebrovascular accident with right arm weakness. 2. Chronic kidney disease, stage III. 3. Atrial fibrillation, on Eliquis. 4. Prostate cancer with radiation. 5. Gout. 6. History of right-sided epididymitis, resolved. 7. Anemia, chronic. PLAN: The patient is going to be admitted to the hospital. I will get Cardiology evaluation for the patient's atrial flutter. The patient is going to be seen by Dr. Oliver for his stroke. The patient is on diltiazem. He is going to continue with Eliquis. He is on Lipitor for dyslipidemia. He is on IV fluids. I will discontinue the patient's IV fluids. He is on a heart-healthy diet. He was given aspirin for his stroke. I will continue his aspirin. I will also get evaluation by ID for possible UTI. Alvin Matias MD
[2018-04-01] MEDS: Acyclovir 500 MG in Sodium Chloride 0.9% 100 ML IV SCH (21:54)
[2018-04-02 06:33] LABS: HEMOGLOBIN 8.1 g/dL (14.0-18.0); MEAN CELL VOLUME 80.7 fl (80.0-105.0); MEAN CORPUSCULAR HEMOGLOBIN 24.8 pg (25.0-35.0); MEAN CORPUSCULAR HGB CONC 30.8 g/dl (31.0-37.0); MEAN PLATELET VOLUME 8.7 fl (7.0-11.0); RBC 3.26 10^6/uL (3.5-6.1); RED CELL DISTRIBUTION WIDTH 17.6 % (11.5-14.5); WHITE BLOOD COUNT 7.7 10^3/ul (4.5-11.0)
[2018-04-02] MEDS ORDERED: Barium Sulfate Susp 2.1% w/v, 2.0% w/w 450 mL Bottle PO ONE (06:43)
[2018-04-02 07:03] LABS: IRON 32 ug/dL (45-180)
[2018-04-02 07:09] LABS: ALB/GLOB RATIO 0.7 (1.1-1.8); ALBUMIN 2.6 g/dL (3.0-4.8); CALCIUM 8.4 mg/dL (8.4-10.5)
[2018-04-02 07:16] LABS: FREE T4 1.75 ng/dL (0.78-2.19)
[2018-04-02 07:18] LABS: % IRON SATURATION 22 % (20-55); TOTAL IRON BINDING CAPACITY 147 ug/dL (261-462)
[2018-04-02] MEDS: Albuterol-Ipratrop 3 mg / 0.5 (3 ml) UD IH SCH ×6 (07:29→20:46)
[2018-04-02] MEDS ORDERED: Potassium Chloride 20 mEq ER Tab PO ONE (08:30)
--- NOTE | 2018-04-02 09:33 | CON ---
DATE: 04/02/2018 INDICATIONS: Stroke, atrial fibrillation. HISTORY OF PRESENT ILLNESS: This is a 73-year-old man, known to us, admitted on 03/31/2018 with right-sided weakness and difficulty speaking, thought to have a new stroke. He has a history of a left-sided stroke in the past. Apparently, he was found to have weakness and difficulty speaking. He was brought to the emergency room by his family. His past medical history is notable for atrial fibrillation, coronary artery disease, gout, C-spine disease, chronic kidney disease, prostate cancer with radiation therapy. There was no chest pain, shortness of breath, orthopnea, PND, syncope, palpitation, fever, chills, cough, sputum production, hemoptysis, abdominal pain, nausea, vomiting, diarrhea, constipation or melena. MEDICATIONS AT THE TIME OF ADMISSION: Included Eliquis, aspirin, DuoNebs, Lexapro, Lipitor, gabapentin, omeprazole. CURRENT MEDICATIONS: Include diltiazem, aspirin, Eliquis, potassium, Lexapro, Lipitor, meropenem, Neurontin, vancomycin, acyclovir. ALLERGIES: THERE ARE NO MEDICATION ALLERGIES. SOCIAL HISTORY: He does not smoke. He does not drink alcohol. He lives at home with his . He has very limited mobility, using a walker at times. FAMILY HISTORY: Notable for heart disease. REVIEW OF SYSTEMS: Ten-point review of systems is limited. PHYSICAL EXAMINATION: GENERAL: He is a well-developed elderly male, in no acute distress, on 2R telemetry. VITAL SIGNS: He is in atrial fibrillation at 72 beats per minute, afebrile, 109/66, respirations 20, O2 sat 94-99% on room air. HEENT: Reveals no neck vein distention, thyromegaly, carotid bruit. Mucous membranes moist. Conjunctivae pink. NECK: Supple. LUNGS: Lung samuel, clear. HEART: Examination of the heart revealed normal first and second heart sounds. ABDOMEN: Soft. Bowel sounds present. No mass, organomegaly, tenderness, rebound, guarding. No CVA tenderness. No palpable abdominal aortic aneurysm. EXTREMITIES: Revealed no cyanosis, clubbing or edema. NEUROLOGICAL: He was awake. PSYCHIATRIC: Normal as to mood and affect. SKIN: Revealed no cyanosis, clubbing or edema. LABORATORY DATA AND IMAGING: EKG demonstrated atrial fibrillation with rapid ventricular response, poor R-wave progression, inferior Q waves. No change from a prior EKG except that the rate was more rapid. A chest x-ray revealed no active disease. A CT scan of the head reveals no acute intracranial abnormalities, etc. A head and neck CTA reveals no occlusion or significant stenosis identified, etc. There are bilateral moderate stenoses of ICAs, etc. A brain MRI reveals no acute intracranial findings. White count 12,700, repeat 7700; hemoglobin down to 8.1; hematocrit 26.3; platelet count normal. PT 21.1, INR 1.83, PTT 34.2. A blood gas is noted. Electrolytes: BUN unremarkable; creatinine 1.4, repeat 1.9; blood sugars are noted. Calcium 9.4. Elevated LFTs are noted. Troponin less than 0.01. Total cholesterol 100, triglyceride 143, LDL 44, HDL 21. Potassium today 3.5. Procalcitonin 0.75. Urinalysis noted. IMPRESSION: Kenan Grewal is a 73-year-old man with atrial fibrillation, who may have suffered a new stroke. He has a history of an old stroke. He is being evaluated by neurology. He is on Eliquis and aspirin. I will review his old records. He is on antibiotics. He has been cultured. His hemoglobin has dropped. Stool for occult blood has been ordered. He has an Infectious Disease consultation. He is getting diltiazem. Potassium is being replaced. He is getting Lipitor. I will follow along with you. I will make additional recommendations based on his clinical course. Enmanuel Morales MD [facility]
[2018-04-02 09:37] LABS: HEMOGLOBIN 8.3 g/dL (14.0-18.0)
[2018-04-02] MEDS: Meropenem IV 1 gm in NS 50 ML IVPB SCH ×2 (10:34→22:50)
[2018-04-02] MEDS: diltiaZEM 240 mg/24 Hours CD Cap PO SCH (10:35)
--- NOTE | 2018-04-02 12:12 | CON ---
DATE: 04/02/2018 LOCATION: The patient is in bed, seen earlier today in room 262, bed 2. CHIEF COMPLAINT: Arm weakness times several days. HISTORY OF PRESENT ILLNESS: A 73-year-old male with history of dementia, cerebrovascular accident, chronic back pain, TIA, atrial fibrillation, history of right hand cellulitis, kidney disease and prostate cancer, left-sided epididymitis, recent hospitalization, now admitted with weakness and questionable change in mental status in the emergency room. Review of systems reveals there are no fevers reported and no chest pain. No abdominal pain, diarrhea or constipation. REVIEW OF SYSTEMS: Twelve-point review of systems performed. PAST MEDICAL HISTORY: Significant for recent left-sided epididymitis; prostate cancer, had RT; kidney disease; right hand cellulitis; atrial fibrillation; transient ischemic attack; chronic back pain and dementia and cerebrovascular accident with weakness. PAST SURGICAL HISTORY: Significant for back surgery in 2008, cardiac catheterization. ALLERGIES: THE PATIENT HAS NO KNOWN ALLERGIES. MEDICATIONS AT HOME: Include omeprazole, gabapentin, Lexapro, Lipitor. PHYSICAL EXAMINATION: GENERAL: The patient is in bed, no acute distress. His baseline mental status as far as communication skills and information, he appears to be at baseline. VITAL SIGNS: Temperature of 98, heart rate of 93; respiratory rate of 20, it was up to 24; the heart rate was up to 110; blood pressure was 109/60. HEENT: Examination of HEENT is unremarkable. NECK: Supple. LUNGS: Have decreased breath sounds. HEART: Normal S1, S2. ABDOMEN: Soft, nontender. No organomegaly. No rebound. No guarding. No masses. LABORATORY DATA: Laboratory examination reveals a white count of 12,700, hemoglobin 11, platelets of 305. BUN of 30, creatinine of 1.9, C-reactive protein is 184. Many bacteria. MRI is negative. Chest x-ray is negative. EKGs, QTc of 451. CAT scan is negative. ASSESSMENT AND PLAN: A 73-year-old male with cerebrovascular accident, dementia, chronic back pain, transient ischemic attack, atrial fibrillation, right hand cellulitis and kidney disease and prostate cancer, had radiation, left-sided epididymitis. Now, presenting with tachycardia, dyspnea, leukocytosis with negative chest x-ray and no evidence of infection on his arm and negative urinalysis with trace casts. #1 is systemic inflammatory response syndrome. We will treat the patient with meropenem and pending urinalysis and urine culture and blood culture results. Case discussed with Dr. Matias at length. The patient did have an elevated procalcitonin 0.75, although the chest x-ray is reported to be negative. I will order a CAT scan of the chest to rule out a pneumonia. Continue with the meropenem and p.o. doxycycline. Krishna Key MD
[2018-04-02 12:25] LABS: HEPATITIS B SURFACE AG Negative (NEGATIVE)
[2018-04-02 12:30] LABS: HEPATITIS A IGM NEGATIVE (NEGATIVE); HEPATITIS B CORE AB NEGATIVE (NEGATIVE)
[2018-04-02] MEDS: Vancomycin 1gm in NS 250ml 1 GM/250 ML BAG IVPB SCH (12:47)
[2018-04-02] MEDS: Acyclovir 500 MG in Sodium Chloride 0.9% 100 ML IV SCH (12:47)
[2018-04-02] MEDS ORDERED: Pantoprazole 40 mg EC Tab PO ONE (13:34)
[2018-04-02 14:04] LABS: HEPATITIS C ANTIBODY REACTIVE (NEGATIVE)
--- NOTE | 2018-04-02 14:23 | CT ---
PROCEDURE: CT Chest, Abdomen and Pelvis without intravenous contrast HISTORY: r/o infiltrate COMPARISON: None. TECHNIQUE: Radiation dose: Total exam DLP = 1505 mGy-cm. This CT exam was performed using one or more of the following dose reduction techniques: Automated exposure control, adjustment of the mA and/or kV according to patient size, and/or use of iterative reconstruction technique. FINDINGS: CT CHEST WITHOUT CONTRAST: LUNGS: Clear. No nodule, mass or consolidation. MEDIASTINUM: Unremarkable. Normal caliber aorta and pulmonary arterial trunk. Normal size heart. LYMPH NODES: Unremarkable. PLEURA: Unremarkable. No pneumothorax. No pleural fluid. BONES: Unremarkable. OTHER FINDINGS: None. CT ABDOMEN AND PELVIS: LIVER: Unremarkable. No gross lesion or ductal dilatation. GALLBLADDER AND BILE DUCTS: Unremarkable. PANCREAS: Unremarkable. No gross lesion or ductal dilatation. SPLEEN: Unremarkable. ADRENALS: Unremarkable. No mass. KIDNEYS AND URETERS: Unremarkable. No hydronephrosis. No solid mass. There is some residual contrast in the right renal collecting system and the bladder from a recent contrast-enhanced CT VASCULATURE: Unremarkable. No aortic aneurysm. BOWEL: Unremarkable. No obstruction. No gross mural thickening. APPENDIX: Normal appendix. PERITONEUM: Unremarkable. No free fluid. No free air. LYMPH NODES: Unremarkable. No enlarged lymph nodes. BLADDER: Unremarkable. REPRODUCTIVE: Unremarkable. BONES: No acute fracture. OTHER FINDINGS: None. IMPRESSION: No evidence of infiltrate. No acute intra-abdominal findings
[2018-04-02] MEDS ORDERED: Darbepoetin Alfa 100 mcg/ml Inj SC ONE (15:25)
--- NOTE | 2018-04-02 15:40 | PN ---
DATE: 04/02/2018 SUBJECTIVE: The patient has no complaints of any chest pain. No shortness of breath. No headaches or dizziness. PHYSICAL EXAMINATION: VITAL SIGNS: Temperature is 98.1, pulse of 74, blood pressure is 104/62, respirations 18. GENERAL: The patient is lying in bed, flat, comfortable. HEENT: No oral lesion. Anicteric sclerae. Moist mucosa. NECK: No JVD, adenopathy, or thyromegaly. CARDIOVASCULAR: S1 and S2, regular. No murmurs, rubs, or gallops. LUNGS: Clear to auscultation bilaterally. No wheeze, rales, or rhonchi. ABDOMEN: Bowel sounds are positive, soft, nontender and nondistended. EXTREMITIES: No cyanosis, clubbing or edema. LABORATORY DATA: Hemoglobin is 8.3, creatinine is 1.9, potassium is 3.5. His CAT scan of the chest, abdomen and pelvis done, which showed no evidence of infiltrate. MRI of the brain showed no acute findings. ASSESSMENT: 1. Arm weakness. 2. Chronic kidney disease stage 3. 3. Atrial fibrillation, on Eliquis. 4. Prostate cancer, status post radiation. 5. Gout. 6. Anemia, chronic. The patient has a saturation of 22%, ferritin is elevated at 1980, hemoglobin is low. The patient's hemoglobin was 11 on admission to the hospital. PLAN: The patient will be seen by GI. I will give a dose of Aranesp to help with the anemia. The patient should go to subacute rehab, but I am not sure if the patient has any time left. I will repeat the patient's CBC tomorrow. Alvin Matias MD
[2018-04-02 16:45] LABS: FOLATE 5.4 ng/mL
[2018-04-03] MEDS ORDERED: Pantoprazole 40 mg EC Tab PO SCH (06:00)
[2018-04-03 06:25] LABS: HEMOGLOBIN 8.1 g/dL (14.0-18.0); MEAN CORPUSCULAR HEMOGLOBIN 24.8 pg (25.0-35.0); MEAN CORPUSCULAR HGB CONC 30.6 g/dl (31.0-37.0); MEAN PLATELET VOLUME 8.5 fl (7.0-11.0); RBC 3.27 10^6/uL (3.5-6.1); RED CELL DISTRIBUTION WIDTH 17.5 % (11.5-14.5); WHITE BLOOD COUNT 7.5 10^3/ul (4.5-11.0)
[2018-04-03 06:34] VITALS: O2SAT 97
[2018-04-03 06:45] LABS: ALB/GLOB RATIO 0.7 (1.1-1.8); ALBUMIN 2.9 g/dL (3.0-4.8); CALCIUM 8.6 mg/dL (8.4-10.5)
[2018-04-03] MEDS: Albuterol-Ipratrop 3 mg / 0.5 (3 ml) UD IH SCH ×3 (07:35→16:13)
--- NOTE | 2018-04-03 08:21 | CP.PCM.PN ---
Subjective - Date & Time of Evaluation Date of Evaluation: 04/03/18 Time of Evaluation: 07:00 - Subjective Subjective: Stable on 2R. No CP or SOB V/S noted. AF PE: Lungs: clear Cor: irreg., S1S2 Abd.: soft Ext.: no edema Neuro.: alert I/O = 600/800 Labs noted: H/H 8.1/26.5, Cr.= 2.0 Stool neg OB BC X2 NG at [address] Chest/A/P: noted. No sign. findings Objective - Vital Signs/Intake and Output Vital Signs (last 24 hours): Temp Pulse Resp BP Pulse Ox 98.4 F 93 H 18 111/68 97 04/03/18 06:00 04/03/18 06:00 04/03/18 06:00 04/03/18 06:00 04/03/18 06:00 Intake and Output: 04/03/18 04/03/18 06:59 18:59 Intake Total 360 Output Total 200 Balance 160 - Medications Medications: Current Medications Albuterol/Ipratropium (Duoneb 3 Mg/0.5 Mg (3 Ml) Ud) 3 ml IH RQID [facility] Last Admin: 04/03/18 07:35 Dose: 3 ml Apixaban (Eliquis) 5 mg PO BID [facility] PRN Reason: Protocol Last Admin: 04/02/18 17:58 Dose: 5 mg Aspirin (Ecotrin) 81 mg PO DAILY [facility] Last Admin: 04/02/18 10:34 Dose: 81 mg Atorvastatin Calcium (Lipitor) 40 mg PO HS [facility] Last Admin: 04/02/18 22:50 Dose: 40 mg Diltiazem HCl (Cardizem Cd) 240 mg PO DAILY [facility] Last Admin: 04/02/18 10:35 Dose: 240 mg Doxycycline Hyclate (Doryx) 100 mg PO Q12 [facility] PRN Reason: Protocol Stop: 04/09/18 22:01 Last Admin: 04/02/18 22:50 Dose: 100 mg Escitalopram Oxalate (Lexapro) 10 mg PO DAILY [facility] Last Admin: 04/02/18 10:34 Dose: 10 mg Gabapentin (Neurontin) 300 mg PO BID [facility] PRN Reason: Protocol Last Admin: 04/02/18 17:58 Dose: 300 mg Meropenem (Merrem Iv 1 Gm Premix) 50 mls @ 100 mls/hr IVPB Q12 [facility] PRN Reason: Protocol Stop: 04/10/18 16:52 Last Admin: 04/02/18 22:50 Dose: 100 mls/hr Pantoprazole Sodium (Protonix Ec Tab) 40 mg PO 0600 [facility] Last Admin: 04/03/18 05:52 Dose: 40 mg - Labs Labs: 04/03/18 05:45 04/03/18 05:45 PT 21.1 SECONDS (9.4-12.5) H 03/31/18 18:00 INR 1.83 (0.93-1.08) H 03/31/18 18:00 APTT 34.2 Seconds (25.1-36.5) 03/31/18 18:00 Assessment and Plan - Assessment and Plan (Free Text) Assessment: R/O CVA Old CVA AF CAD Anemia CKD Prostate cancer/XRT Gout Plan: As per GI, Neuro., Dr. Matias and ID Monitor: H/H, labs, Renal fx., etc. Will follow.
--- NOTE | 2018-04-03 10:54 | CP.PCM.CON ---
<Analisa Spears - Last Filed: 04/03/18 10:52> History of Present Illness - History of Present Illness History of Present Illness: Seen and examined at bedside, chart reviewed. Request for GI consult is for anemia. HPI: This is a 73-year-old male with a past medical history of chronic kidney disease, stage IV, atrial fibrillation on a liquid, CVA, prostate cancer status post radiation brought to the hospital with complaints of having right shoulder weakness. The patient is home bound and is being followed by visiting nurse contacted PCP with complaints of right shoulder and arm weakness. Concerned with stroke.the patient had a MRI of the brain which was negative, head/neck CT angiogram was negative for occlusion or significant stenosis. The patient evaluated by neurology. The patient in review of labs came with a hemoglobin of 11, hemoglobin noted a downward trend in 8.1, but in review of previous hemaglobin patient ranges between 9-8.6. This patient was followed by our service on previous admission in February as well as for anemia. He had a endoscopy and colonoscopy in February. Endoscopy showed a normal duodenum and stomach. He did have some colon polyps and internal hemorrhoids. Stool for guaiac was done on this admission and it was negative. The patient in the past did receive iron infusions/oral supplements. Patient denies nausea, vomiting, symptoms of dyspepsia, abdominal pain or change in bowel habits. He did have a bowel movement today. No reports of any anorexia or dysphagia. Had a dose of Aresnep yeaterday. Past medical history: gout, CKD stage IIIa, A.fib (on Eliquis), CVA, prostate ca s/p radiation, colon polyps, Anemia, Iron deficiency Past surgical history: back surgery , egd&colon 02/2018, Allergies: NKDA Social history: Denies alcohol, drug or tobacco use. Lives with daughter family history: denies Past Patient History - Infectious Disease Hx of Infectious Diseases: None - Tetanus Immunizations Tetanus Immunization: Unknown - Past Social History Smoking Status: Never Smoked - CARDIAC Hx Cardiac Disorders: Yes (A fib on eliquis) - PULMONARY Hx Respiratory Disorders: No - NEUROLOGICAL HX Cerebrovascular Accident: Yes (L sided weakness) - HEENT Hx HEENT Problems: No - RENAL Hx Chronic Kidney Disease: No - ENDOCRINE/METABOLIC Hx Endocrine Disorders: No - HEMATOLOGICAL/ONCOLOGICAL Hx Blood Transfusions: No Hx Blood Transfusion Reaction: No - INTEGUMENTARY Hx Dermatological Problems: Yes (RIGHT ARM CELLULITIS 11-16-16) Other/Comment: HAS A SMALL INCISION TO RIGHT UPPER BACK ,PURPLISH HUE IN COLOR, FLUSHED SKIN. HAD BEEN INCISED AND DRAINED, sometimes drains. HAS H/O OF BACK SX 2008., recently admitted for cellulitis right arm 11/16/16presently healing, scratch auguste to rle, multiple auguste on arms from dogs scratchiing pt, pt spilled coffee on his right foot 2 wounds healing, multiple red areas of skin to left foot and bunyon, right foot +1 edema redness and redness to bunyon, buldging vein to lle - MUSCULOSKELETAL/RHEUMATOLOGICAL Hx Musculoskeletal Disorders: Yes Hx Falls: Yes - GASTROINTESTINAL Hx Gastrointestinal Disorders: No - GENITOURINARY/GYNECOLOGICAL Hx Prostate Problems: Yes (cancer) - PSYCHIATRIC Hx Depression: Yes Hx Substance Use: No - SURGICAL HISTORY Hx Cardiac Catheterization: Yes Other/Comment: back sx 2008, spinal cord compression from weight lifting - ANESTHESIA Hx Anesthesia Reactions: No Hx Malignant Hyperthermia: No Meds Home Medications: Home Medication List Medication Instructions Recorded Confirmed Type Aspirin [Ecotrin] 81 mg PO DAILY tabec 04/03/18 Rx Pantoprazole [Protonix EC Tab] 40 mg PO 0600 30 Days ect 04/03/18 Rx diltiaZEM CD [Cardizem CD] 240 mg PO DAILY #30 cap 04/03/18 Rx Allergies/Adverse Reactions: Allergies Allergy/AdvReac Type Severity Reaction Status Date / Time No Known Allergies Allergy Verified 03/31/18 18:01 - Medications Medications: Current Medications Albuterol/Ipratropium (Duoneb 3 Mg/0.5 Mg (3 Ml) Ud) 3 ml IH RQID [facility] Last Admin: 04/03/18 07:35 Dose: 3 ml Apixaban (Eliquis) 5 mg PO BID [facility] PRN Reason: Protocol Last Admin: 04/02/18 17:58 Dose: 5 mg Aspirin (Ecotrin) 81 mg PO DAILY [facility] Last Admin: 04/02/18 10:34 Dose: 81 mg Atorvastatin Calcium (Lipitor) 40 mg PO HS [facility] Last Admin: 04/02/18 22:50 Dose: 40 mg Diltiazem HCl (Cardizem Cd) 240 mg PO DAILY [facility] Last Admin: 04/02/18 10:35 Dose: 240 mg Escitalopram Oxalate (Lexapro) 10 mg PO DAILY [facility] Last Admin: 04/02/18 10:34 Dose: 10 mg Gabapentin (Neurontin) 300 mg PO BID [facility] PRN Reason: Protocol Last Admin: 04/02/18 17:58 Dose: 300 mg Pantoprazole Sodium (Protonix Ec Tab) 40 mg PO 0600 [facility] Last Admin: 04/03/18 05:52 Dose: 40 mg Physical Exam - Constitutional Appears: No Acute Distress - Head Exam Head Exam: NORMOCEPHALIC - Eye Exam Eye Exam: Normal appearance. absent: Scleral icterus - ENT Exam ENT Exam: Mucous Membranes Moist - Neck Exam Neck exam: Positive for: Normal Inspection - Respiratory Exam Respiratory Exam: NORMAL BREATHING PATTERN. absent: Respiratory Distress - Cardiovascular Exam Cardiovascular Exam: +S1, +S2 - GI/Abdominal Exam GI & Abdominal Exam: Normal Bowel Sounds, Soft. absent: Guarding, Rebound, Tenderness - Rectal Exam Rectal Exam: NORMAL INSPECTION - Extremities Exam Extremities exam: Positive for: pedal pulses present. Negative for: calf tenderness, pedal edema - Neurological Exam Neurological exam: Alert, Oriented x3 - Skin Skin Exam: Dry, Warm Results - Vital Signs Recent Vital Signs: Last Vital Signs Temp 98.4 F 04/03/18 06:00 Pulse 93 H 04/03/18 06:00 Resp 18 04/03/18 06:00 BP 111/68 04/03/18 06:00 Pulse Ox 97 04/03/18 06:00 - Labs Result Diagrams: 04/03/18 05:45 04/03/18 05:45 Labs: Laboratory Results - last 24 hr 04/02/18 04/02/18 04/02/18 05:30 05:30 07:14 WBC RBC Hgb Hct MCV MCH MCHC RDW Plt Count MPV Retic Count Sodium Potassium Chloride Carbon Dioxide Anion Gap BUN Creatinine Est GFR ( Amer) Est GFR (Non-Af Amer) POC Glucose (mg/dL) 104 Random Glucose Calcium Ferritin 1980.0 Total Bilirubin AST ALT Alkaline Phosphatase Total Protein Albumin Globulin Albumin/Globulin Ratio Vitamin B12 Folate Stool Occult Blood Hepatitis A IgM Ab Negative Hep Bs Antigen Negative Hep B Core IgM Ab Negative Hepatitis C Antibody Reactive Blood Type Antibody Screen Crossmatch [facility] History Checked 04/02/18 04/02/18 04/02/18 10:00 10:55 11:30 WBC RBC Hgb Hct MCV MCH MCHC RDW Plt Count MPV Retic Count Sodium Potassium Chloride Carbon Dioxide Anion Gap BUN Creatinine Est GFR ( Amer) Est GFR (Non-Af Amer) POC Glucose (mg/dL) Random Glucose Calcium Ferritin Total Bilirubin AST ALT Alkaline Phosphatase Total Protein Albumin Globulin Albumin/Globulin Ratio Vitamin B12 477 Folate 5.4 Stool Occult Blood Negative Hepatitis A IgM Ab Hep Bs Antigen Hep B Core IgM Ab Hepatitis C Antibody Blood Type A POSITIVE Antibody Screen Negative Crossmatch See Detail BBK History Checked Patient has bt 04/02/18 04/02/18 04/02/18 11:30 11:35 16:09 WBC RBC Hgb Hct MCV MCH MCHC RDW Plt Count MPV Retic Count 0.57 Sodium Potassium Chloride Carbon Dioxide Anion Gap BUN Creatinine Est GFR ( Amer) Est GFR (Non-Af Amer) POC Glucose (mg/dL) 133 H 125 H Random Glucose Calcium Ferritin Total Bilirubin AST ALT Alkaline Phosphatase Total Protein Albumin Globulin Albumin/Globulin Ratio Vitamin B12 Folate Stool Occult Blood Hepatitis A IgM Ab Hep Bs Antigen Hep B Core IgM Ab Hepatitis C Antibody Blood Type Antibody Screen Crossmatch BBK History Checked 04/03/18 04/03/18 04/03/18 05:45 05:45 07:09 WBC 7.5 RBC 3.27 L Hgb 8.1 L Hct 26.5 L MCV 81.0 MCH 24.8 L MCHC 30.6 L RDW 17.5 H Plt Count 293 MPV 8.5 Retic Count Sodium 141 Potassium 3.9 Chloride 103 Carbon Dioxide 28 Anion Gap 15 BUN 27 H Creatinine 2.0 H Est GFR ( Amer) 40 Est GFR (Non-Af Amer) 33 POC Glucose (mg/dL) 104 Random Glucose 106 Calcium 8.6 Ferritin Total Bilirubin 0.3 AST 65 H ALT 51 Alkaline Phosphatase 116 Total Protein 6.8 Albumin 2.9 L Globulin 3.9 Albumin/Globulin Ratio 0.7 L Vitamin B12 Folate Stool Occult Blood Hepatitis A IgM Ab Hep Bs Antigen Hep B Core IgM Ab Hepatitis C Antibody Blood Type Antibody Screen Crossmatch BBK History Checked Assessment & Plan - Assessment and Plan (Free Text) Assessment: Assessment: Admitted for right sided weakness, workup for acute stroke Anemia, history of iron deficiency, also could be secondary to chronic kidney disease, egd/colon 02/2018, no GI source of bleeding noted History of colon polyps Prostate cancer with radiation History of right-sided epididymitis Atrial fibrillation on Eliquis CVA with left-sided weakness PLan: iron studies reviewed:Iron 32/[id number]/% sat 22/ferritin 1980/B12 477/folate 5.4 continue PPI monitor H/H and for overt GI bleeding, stool guiac negative on Eliquis for Afib diet as tolerated Thank you for this consult and for allowing us to participate in your patient's care, further recommendations based on clinical course. Seen and discussed with Dr. Koroma. <María Elena Koroma V - Last Filed: 04/03/18 23:42> Results - Vital Signs Recent Vital Signs: Last Vital Signs Temp 98 F 04/03/18 17:42 Pulse 59 L 04/03/18 17:42 Resp 18 04/03/18 17:42 BP 104/72 04/03/18 17:42 Pulse Ox 97 04/03/18 06:00 - Labs Result Diagrams: 04/03/18 05:45 04/03/18 05:45 Labs: Laboratory Results - last 24 hr 04/03/18 04/03/18 04/03/18 05:45 05:45 07:09 WBC 7.5 RBC 3.27 L Hgb 8.1 L Hct 26.5 L MCV 81.0 MCH 24.8 L MCHC 30.6 L RDW 17.5 H Plt Count 293 MPV 8.5 Sodium 141 Potassium 3.9 Chloride 103 Carbon Dioxide 28 Anion Gap 15 BUN 27 H Creatinine 2.0 H Est GFR ( Amer) 40 Est GFR (Non-Af Amer) 33 POC Glucose (mg/dL) 104 Random Glucose 106 Calcium 8.6 Total Bilirubin 0.3 AST 65 H ALT 51 Alkaline Phosphatase 116 Total Protein 6.8 Albumin 2.9 L Globulin 3.9 Albumin/Globulin Ratio 0.7 L 04/03/18 04/03/18 11:04 16:15 WBC RBC Hgb Hct MCV MCH MCHC RDW Plt Count MPV Sodium Potassium Chloride Carbon Dioxide Anion Gap BUN Creatinine Est GFR ( Amer) Est GFR (Non-Af Amer) POC Glucose (mg/dL) 217 H 125 H Random Glucose Calcium Total Bilirubin AST ALT Alkaline Phosphatase Total Protein Albumin Globulin Albumin/Globulin Ratio Attending/Attestation - Attestation I have personally seen and examined this patient.: Yes I have fully participated in the care of the patient.: Yes I have reviewed all pertinent clinical information: Yes Notes (Text): This is an addendum to GI progress report dictated by Analisa Spears APN.The patient was seen and examined earlier. Medical records, lab studies, imagings were reviewed. Last 24 hours events reviewed. Agreed with the above treatment plan as outlined in Analisa Spears APN's notes the with the addition of the following 04/03/18 23:42
[2018-04-03] MEDS: diltiaZEM 240 mg/24 Hours CD Cap PO SCH (11:32)
[2018-04-03 17:43] VITALS: BP 104/72; PULSE 59; RESP 18; TEMP 98
--- NOTE | 2018-04-03 18:43 | CP.PCM.PN ---
Subjective - Date & Time of Evaluation Date of Evaluation: 04/02/18 Time of Evaluation: 08:55 - Subjective Subjective: No fevers, not in distress, afebrile, still with weakness but much improved. Objective - Vital Signs/Intake and Output Vital Signs (last 24 hours): Temp Pulse Resp BP Pulse Ox 97.9 F 79 18 84/71 L 94 L 04/02/18 17:59 04/02/18 17:59 04/02/18 17:59 04/02/18 17:59 04/02/18 11:37 Intake and Output: 04/02/18 04/03/18 18:59 06:59 Intake Total 300 Output Total 600 Balance -300 - Medications Medications: Current Medications Albuterol/Ipratropium (Duoneb 3 Mg/0.5 Mg (3 Ml) Ud) 3 ml IH RQID [facility] Last Admin: 04/02/18 20:46 Dose: 3 ml Apixaban (Eliquis) 5 mg PO BID ANASTASIA PRN Reason: Protocol Last Admin: 04/02/18 17:58 Dose: 5 mg Aspirin (Ecotrin) 81 mg PO DAILY [facility] Last Admin: 04/02/18 10:34 Dose: 81 mg Atorvastatin Calcium (Lipitor) 40 mg PO HS [facility] Last Admin: 04/01/18 21:39 Dose: 40 mg Diltiazem HCl (Cardizem Cd) 240 mg PO DAILY [facility] Last Admin: 04/02/18 10:35 Dose: 240 mg Doxycycline Hyclate (Doryx) 100 mg PO Q12 ANASTASIA PRN Reason: Protocol Stop: 04/09/18 22:01 Escitalopram Oxalate (Lexapro) 10 mg PO DAILY [facility] Last Admin: 04/02/18 10:34 Dose: 10 mg Gabapentin (Neurontin) 300 mg PO BID ANASTASIA PRN Reason: Protocol Last Admin: 04/02/18 17:58 Dose: 300 mg Meropenem (Merrem Iv 1 Gm Premix) 50 mls @ 100 mls/hr IVPB Q12 ANASTASIA PRN Reason: Protocol Stop: 04/10/18 16:52 Last Admin: 04/02/18 10:34 Dose: 100 mls/hr Pantoprazole Sodium (Protonix Ec Tab) 40 mg PO 0600 [facility] - Labs Labs: 04/02/18 09:15 04/02/18 05:30 PT 21.1 SECONDS (9.4-12.5) H 03/31/18 18:00 INR 1.83 (0.93-1.08) H 03/31/18 18:00 APTT 34.2 Seconds (25.1-36.5) 03/31/18 18:00 - Constitutional Appears: Chronically Ill - ENT Exam ENT Exam: Mucous Membranes Moist - Neck Exam Neck Exam: absent: Meningismus - Respiratory Exam Respiratory Exam: Decreased Breath Sounds - Cardiovascular Exam Cardiovascular Exam: +S1, +S2 - GI/Abdominal Exam GI & Abdominal Exam: Soft. absent: Tenderness Assessment and Plan - Assessment and Plan (Free Text) Plan: Assessment SIRS, with no obvious source of sepsis history of left sided epididyimitis, with E. coli from the urine history of gouty arthritis history of right hand cellulitis chronic renal failure atrial fibrillation gout history of TIA history of prostate cancer Plan on Doxycycline and Merrem day 2 - cultures have been negative; reviewed CT C/A/ P which did not show pneumonia or intra-abdominal infection - will d/c antibiotics and observe
--- NOTE | 2018-04-06 08:38 | PN ---
SUBJECTIVE: The patient is a 73-year-old male who came in to the hospital because of right-sided arm weakness. The patient was thought to have a stroke. The patient had an MRI, which did not show any significant abnormalities. CT of the chest, abdomen and pelvis was also done, did not show any significant abnormalities. Blood cultures x2 were negative. The patient has no complaints. No chest pain, no shortness of breath, no headaches. PHYSICAL EXAMINATION: VITAL SIGNS: Temperature is 98.6, pulse of 96, blood pressure 107/53, respirations 18. GENERAL: The patient is lying in bed, flat, comfortable. HEENT: No oral lesion. Anicteric sclerae. Moist mucosa. NECK: No JVD, adenopathy or thyromegaly. CARDIOVASCULAR: S1 and S2, regular. No murmurs, rubs or gallops. LUNGS: Clear to auscultation bilaterally. No wheeze, rales or rhonchi. ABDOMEN: Bowel sounds are positive, soft, nontender and nondistended. EXTREMITIES: No cyanosis, clubbing or edema. ASSESSMENT: 1. Right arm weakness. 2. Chronic kidney disease, stage III. 3. Atrial fibrillation, on Eliquis. 4. Prostate cancer, status post radiation. 5. Gout. 6. Anemia, chronic. PLAN: The patient is currently comfortable. He has a CBC that is pending. His hemoglobin was decreased yesterday. I have given him a dose of Aranesp. The patient is on Cardizem. He is going to continue with doxycycline for antibiotics. He is on aspirin. He is going to continue Lexapro for his anxiety. He is on meropenem for antibiotics as well. Alvin Matias MD
== END 2018-04-03 18:01 | disposition home or self-care (01) | DRG 309 ==
LOC: ED 17:46 → ERH 19:41 → 2RNO 22:43
PROVIDERS: ADMIT Internal Medicine Nephrology; ATTEND Internal Medicine Nephrology
DX: I48.91 Unspecified atrial fibrillation (principal); I69.354 Hemiplegia and hemiparesis following cerebral infarction affecting left non-dominant side; N18.4 Chronic kidney disease, stage 4 (severe); R65.10 Systemic inflammatory response syndrome (SIRS) of non-infectious origin without acute organ dysfunction; D64.9 Anemia, unspecified; F03.90 Unspecified dementia, unspecified severity, without behavioral disturbance, psychotic disturbance, mood disturbance, and anxiety; G89.29 Other chronic pain; I12.9 Hypertensive chronic kidney disease with stage 1 through stage 4 chronic kidney disease, or unspecified chronic kidney disease; I25.10 Atherosclerotic heart disease of native coronary artery without angina pectoris; K64.8 Other hemorrhoids; M10.9 Gout, unspecified; R47.02 Dysphasia; Z79.01 Long term (current) use of anticoagulants; Z79.82 Long term (current) use of aspirin; Z86.010 Personal history of colon polyps; Z92.3 Personal history of irradiation; Z85.46 Personal history of malignant neoplasm of prostate